=== PATIENT | female | born 1945 | race Caucasian/White ===

== ENCOUNTER 2017-08-24 11:42 | Inpatient (IN) | payer OTHER ==
[~2017-08-24] VITALS: Ht 162.6 cm; Wt 76.2 kg
--- NOTE | 2017-08-24 12:14 | CT SCAN REPORT ---
EXAMINATION: CT HEAD WITHOUT CONTRAST CLINICAL INFORMATION: Asymmetric pupils and severe headache. Recent fall. COMPARISON: None TECHNIQUE: Contiguous axial imaging was performed from the skull base to vertex without intravenous administration of contrast. DLP: 602 mGy-cm FINDINGS: There is no evidence of acute intracranial hemorrhage or territorial infarction. No abnormal mass effect or midline shift is seen. Ravi to white matter differentiation is well preserved. No extra-axial fluid collections are identified. The ventricles are normal in size. Mild chronic white matter microangiopathic changes are noted. The osseous structures and soft tissues are normal. The mastoid air cells and visualized portions of the paranasal sinuses are well aerated. IMPRESSION: No acute intracranial hemorrhage or territorial infarction. Mild chronic white matter microangiopathic changes. A focal acute ischemic process cannot be ruled out on the basis of this study. Findings discussed with Dr. Ace at 12:14 PM on 08/24/2017.
[2017-08-24 12:26] LABS: ABSOLUTE BASOPHIL COUNT 0 /CUMM (0.0-0.2); ABSOLUTE EOSINOPHIL COUNT 0 /CUMM (0.0-0.7); ABSOLUTE GRANULOCYTE CT 13.7 /CUMM (1.4-6.5); ABSOLUTE LYMPH COUNT 1.7 /CUMM (1.2-3.4); ABSOLUTE MONOCYTE COUNT 1.1 /CUMM (0.10-0.60); BASOPHIL % 0.1 % (0.0-2.0); EOSINOPHIL % 0 % (0-5); GRANULOCYTE % 83.1 % (42.2-75.2); HEMATOCRIT 34.7 % (37-47); MEAN CORPUSCULAR HGB 31.5 PG (27.0-31.0); MEAN CORPUSCULAR HGB CONC 34.1 G/DL (33.0-37.0); MEAN CORPUSCULAR VOLUME 92.4 FL (81.0-99.0); MEAN PLATELET VOLUME 9.7 FL (7.4-10.4); PLATELET COUNT 243 /CUMM (130-400); RED BLOOD CELL CT 3.76 /CUMM (4.20-5.40); WHITE BLOOD CELL COUNT 16.5 /CUMM (4.8-10.8)
[2017-08-24 13:10] LABS: PT 14.6 SEC (9.4-12.5)
--- NOTE | 2017-08-24 13:26 | RADIOLOGY REPORT ---
EXAMINATION: XR PORTABLE CHEST CLINICAL INFORMATION: Fever and cough. COMPARISON: Chest x-ray from 11/06/2012. TECHNIQUE: Portable frontal view of the chest was obtained. FINDINGS: There is questionable mild patchy density in the right lower lobe. The remainder of the lungs are clear. No pleural effusions are seen. The cardiomediastinal silhouette is normal. No acute osseous abnormality is seen. Anterior cervical fusion hardware partially visualized. IMPRESSION: Questionable mild patchy density in the right lower lobe which may be due to subsegmental atelectasis. An early developing pneumonic consolidation is difficult to exclude. Correlate with auscultation.
--- NOTE | 2017-08-24 13:35 | ED GENERAL ADULT ---
History of Present Illness General Chief Complaint: General Adult Stated Complaint: FEVER/MAY/+V Source: patient, family, old records Exam Limitations: no limitations Vital Signs & Intake/Output Vital Signs & Intake/Output Vital Signs Date Time Temp Pulse Resp B/P B/P Pulse O2 O2 Flow FiO2 Mean Ox Delivery Rate 08/24 1646 79 18 103/55 95 Nasal 2.0L Cannula 08/24 1532 90 18 101/56 Nasal 2.0L Cannula 08/24 1406 99.4 86 20 98 Nasal 2.0L Cannula 08/24 1327 100.9 94 20 113/54 96 Room Air 08/24 1253 102.9 08/24 1245 102.9 92 18 122/58 95 Room Air 08/24 1229 103.2 08/24 1218 103.2 96 20 137/63 99 Room Air 08/24 1217 103.5 97 18 137/63 96 Room Air Allergies Coded Allergies: Penicillins (RASH 08/24/17) naproxen (VOMITING 08/24/17) Reconcile Medications Esomeprazole Magnesium (Nexium) 20 MG CAPSULE.DR Baeza CAP PO PRN GI (Reported) Triage Note: 72F BY PRIVATE CAR FROM URGENT CARE DUE TO FEVERS AND VOMITING. IN TRIAGE, SLIGHT ASYMMETRY IN FACE OBSERVED AND LEFT PUPIL IS CONSTRICTED 1MM AND RIGHT PUPIL IS 3MM. REPORTS SPLITTING HEADACHE FOR DAYS, AND FALL X3 WITH HEADSTRIKE THIS WEEK. DENIES BLOOD THINNERS. TOOK ADVIL THIS AM FOR HEADACHE WITHOUT RELIEF. PT IS WEEK BUT DEMONSTRATES 4+ STRENGTH TO BILATERAL EXTREMITIES. SPEECH IS CLEAR. AIRWAY PATENT. TEMP 103.5. TAKEN IMMEDIATELY TO CT FOR HEAD WITHOUT CONTRAST. DR POON AND CHARGE NURSE NOTIFIED. TO GO TO ROOM 9 AFTER SCAN Triage Nurses Notes Reviewed? yes Onset: Last week Duration: day(s):, constant, continues in ED, getting worse Timing: recent history Injury Environment: home Severity: severe Modifying Factors: Improves With: rest. Worsens With: eating, movement. Associated Symptoms: cough LMP (ages 10-50): post menopausal : No Patient currently breastfeeds: No HPI: One week prior to admission patient complains of fever cough weakness nausea and retching headaches anorexia. She reports falling 3 times striking her head. There has been no abdominal pain diarrhea dysuria rash bleeding. Past History Travel History Traveled to [place] past 21 day No Medical History Any Pertinent Medical History? see below for history Neurological: NONE EENT: NONE Cardiovascular: NONE Respiratory: NONE Gastrointestinal: GERD Hepatic: NONE Renal: NONE Musculoskeletal: NONE Psychiatric: NONE Endocrine: NONE Blood Disorders: NONE Cancer(s): NONE History of MRSA: No History of VRE: No History of CDIFF: No Pneumonia Vaccine: 11/21/12 Surgical History Surgical History: non-contributory Psychosocial History Who do you live with Family Services at Home None What is your primary language Swedish Tobacco Use: Never used Family History Hx Contributory? No Review of Systems Review of Systems Constitutional: Reports: see HPI, chills, fever, weakness. EENTM: Reports: no symptoms. Respiratory: Reports: see HPI, cough, sputum production. Cardiovascular: Reports: no symptoms. GI: Reports: see HPI, nausea. Genitourinary: Reports: no symptoms. Musculoskeletal: Reports: no symptoms. Skin: Reports: no symptoms. Neurological/Psychological: Reports: see HPI, headache. Hematologic/Endocrine: Reports: no symptoms. Immunologic/Allergic: Reports: no symptoms. All Other Systems: Reviewed and Negative Physical Exam Physical Exam General Appearance: well developed/nourished, alert, awake, anxious, moderate distress, obese Head: normal appearance, tenderness Eyes: Bilateral: normal appearance, PERRL, EOMI. Ears, Nose, Throat: normal pharynx, normal ENT inspection, hearing grossly normal, dry mucous membranes Neck: normal inspection, supple, full range of motion, no midline tenderness Respiratory: normal breath sounds, chest non-tender, quiet respiration, decreased breath sounds Cardiovascular: regular rate/rhythm, normal peripheral pulses, tachycardia, norml femoral pulses equa Peripheral Pulses: 4+ carotid (R), 4+ carotid (L) Gastrointestinal: normal bowel sounds, soft, non-tender, no organomegaly Back: normal inspection, normal range of motion, no vertebral tenderness Extremities: normal inspection, normal capillary refill, normal range of motion, no edema Neurologic/Psych: no motor/sensory deficits, awake, alert, oriented x 3, normal mood/affect, manager lab II-XII nml as tested Reflexes: 2+: bicep (R), bicep (L). Skin: intact, normal color, warm/dry Lymphatic: no anterior cervical shaheen Core Measures ACS in differential dx? No CVA/TIA Diagnosis: No Sepsis Present: No Sepsis Focused Exam Completed? No Progress Differential Diagnoses I considered the following diagnoses in my evaluation of the patient: Pneumonia UTI sepsis bacteremia Plan of Care: Orders Procedure Date/time Status CBC WITHOUT DIFFERENTIAL 08/25 599 Active BASIC ELECTROLYTES PLUS BUN&CR 08/25 0600 Active Regular Diet 08/24 D Active LOWER RESPIRATORY CULTURE 08/24 1642 Active CULTURE,URINE 08/24 1432 Active Pathway - chart 08/24 1420 Active House Staff 08/24 1420 Active Patient Data 08/24 1420 Active Code Status 08/24 1420 Active Patient Data 08/24 1410 Active OXYGEN SETUP (GEN) 08/24 1349 Active Saline Lock 08/24 1349 Active Admit to inpatient 08/24 1349 Active Vital Signs 08/24 1349 Active Activity/Ambulation 08/24 1349 Active Code Status 08/24 1349 Complete URINALYSIS 08/24 1251 Complete BLOOD CULTURE 08/24 1233 Active Add-on Test (ER Only) 08/24 1218 Active LIPASE 08/24 1210 Complete TROPONIN LEVEL 08/24 1209 Complete PROTHROMBIN TIME 08/24 1209 Complete LACTIC ACID 08/24 1209 Complete COMPREHENSIVE METABOLIC PANEL 08/24 1209 Complete CBC WITHOUT DIFFERENTIAL 08/24 1209 Complete EKG 08/24 1207 Active Intake & Output 08/24 1157 Active TRC EVALUATION (GEN) 08/24 UNK Active VTE Mechanical Prophylaxis 08/24 UNK Active [place] Coma Scale 08/24 UNK Active Current Medications Sig/Tiffanie Start time Last Medication Dose Stop Time Status Admin Azithromycin 500 MG DAILY 08/25 899 UNVr (Zithromax) Sodium Chloride 250 ML (Normal Saline 0.9%) Ceftriaxone Sodium 1,000 MG DAILY 08/25 899 UNVr (Rocephin) Pantoprazole Sodium 40 MG DAILY 08/25 09 UNVr (Protonix) Ondansetron HCl 4 MG Q12P PRN 08/24 1715 UNVr (Zofran) Sodium Chloride 1,000 ML BOLUS ONE 08/24 1645 AC 08/24 (Normal Saline 0.9%) 08/24 1744 1646 Sodium Chloride 1,000 ML Q13H 08/24 1645 AC (Normal Saline 0.9%) Aspirin 81 MG DAILY 08/24 1641 AC (Aspirin) Laboratory Tests 08/24/17 1652: Urinalysis MOD H, Urine Color YEL, Urine Clarity CLDY H, Urine pH 6.0, Ur Specific [place] >= 1.030, Urine Protein 100 H, Urine Ketones 15 H, Urine Nitrite POS H, Urine Bilirubin NEG, Urine Urobilinogen 0.2, Ur Leukocyte Esterase NEG, Ur Microscopic SEDIMENT EXAMINED, Urine RBC 1-3, Urine WBC 5-10 H , Ur Epithelial Cells MOD H, Urine Bacteria MANY H, Hyaline Casts 1-3 H, Granular Casts 10-15 H, Urine Mucus FEW, Urine Hemoglobin MOD H, Urine Glucose NEG 08/24/17 1509: Lactic Acid Cancelled 08/24/17 1245: PT 14.6 H, INR 1.34 H 08/24/17 1210: Anion Gap 11, Estimated GFR 44 L, BUN/Creatinine Ratio 13.3, Glucose 123 H, Lactic Acid 1.7, Calcium 9.0, Total Bilirubin 0.6, AST 24, ALT 42, Alkaline Phosphatase 95, Troponin I 0.02, Total Protein 6.5, Albumin 3.4 L, Globulin 3.1 , Albumin/Globulin Ratio 1.1, Lipase 32, CBC w Diff MAN DIFF ORDERED, RBC 3.76 L, MCV 92.4, MCH 31.5 H, MCHC 34.1, RDW 13.0, MPV 9.7, Gran % 83.1 H, Lymphocytes % 10.3 L, Monocytes % 6.5, Eosinophils % 0, Basophils % 0.1, Absolute Granulocytes 13.7 H, Absolute Lymphocytes 1.7, Absolute Monocytes 1.1 H, Absolute Eosinophils 0, Absolute Basophils 0, Platelet Estimate VERIFIED BY SMEAR, Normocytic RBCs VERIFIED, Normochromic RBCs VERIFIED Microbiology 08/24 165 URINE ROUT: Urine Culture - RECD 08/24 1642 LOWER RESP: Respiratory Culture - ORD 08/24 1642 LOWER RESP: Gram Stain - ORD 08/24 1245 BLOOD: Blood Culture - RECD 08/24 1234 BLOOD: Blood Culture - RECD Diagnostic Imaging: Viewed by Me: Radiology Read, CT Scan. Discussed w/RAD: Radiology Read, CT Scan. Radiology Impression: No acute intracranial hemorrhage or territorial infarction. Mild chronic white matter microangiopathic changes. A focal acute ischemic process cannot be ruled out on the basis of this study. CXR Impression: Questionable mild patchy density in the right lower lobe which may be due to subsegmental atelectasis. An early developing pneumonic consolidation is difficult to exclude. Correlate with auscultation. Initial ED EKG: normal axis, normal intervals, normal p-waves, normal QRS complex, rhythm (sinus tachycardia), no ST T wave changes Prior EKG: unchanged Rhythm Strip: sinus tachycardia Departure Departure Disposition: STILL A PATIENT Condition: Fair Clinical Impression Primary Impression: Pneumonia Secondary Impressions: Dehydration, Fever, Leukocytosis Referrals: Giselle ANTOINE,Patricia Johnson (PCP/Family) Departure Forms: Customer Survey General Discharge Information Admission Note Spoke With: Leonor ANTOINE,Aneta Fung Documentation of Exam: Documentation of any treatments & extenuating circumstances including Concerns Regarding Discharge (functional status, medication knowledge or non-compliance, living conditions, etc.) that warrant an admission rather than observation: Supplemental oxygen IV antibiotics while cultures serial lab exam medication adjustment continuing care discharge planning. Critical Care Note Critical Care Note Critical Care Time: non-applicable (40)
--- NOTE | 2017-08-24 14:21 | History & Physical ---
Chiqui ANTOINE,[place] 08/24/17 1420: General Information and HPI MD Statement: I have seen and personally examined RUBEN ALMAGUER and documented this H&P. The patient is a 72 year old F who presented with a patient stated chief complaint of [pneumonia ]. Source of Information: patient, family, old records Exam Limitations: no limitations History of Present Illness: Patient is a 72-year-old female with past medical history of GERD,Mild nonerosive gastritis,Gastroesophageal reflux disease and paraesophageal hernia status post Dago's fundoplication (2010),Cervical disc herniations at C4-C5, C5-C6 and C6-C7 status Post cervical Arthodesis (2012), presented to the ED with chief complaints of fever and vomiting. She started having mild to moderate grade fever in the range of from 101 to 103, since redness day. She took Advil to treat her fever. Fever was associated with dry cough, headache and generalized weakness which leading to fall. She fall around 3 times over this period, but denies for any trauma. She denies for any blurry vision, weakness in any specific part of the body, seizures, incontinence of the urine and the stools, chest pain, palpitation, shortness of breath, abdominal pain, diarrhea, constipation. Her daughter insisted her to go to urgent care. in urgent care she was found to have a symmetric pupil and face with high-grade fever and range of 103. She was advised to come to the [facility] ED for further evaluation and management. She does not follow any PCP. She is not on any medication. Allergy history -penicillin causes rash, naproxen causes GI distress Surgical history - Gastroesophageal reflux disease and paraesophageal hernia status post Dago's fundoplication (2010) Cervical disc herniations at C4-C5, C5-C6 and C6-C7 status Post cervical Arthodesis (2013) Tubal ligation Appendicectomy Personal history -lives with the family, retired [employer] employee, she has 8 dogs, nobody is sick, denies smoking and alcohol. Family history - Father - diabetes, hypertension Mother -lung and kidney cancer Allergies/Medications Allergies: Coded Allergies: Penicillins (RASH 08/24/17) naproxen (VOMITING 08/24/17) Past History Travel History Traveled to [place] past 21 day No Medical History Neurological: NONE EENT: NONE Cardiovascular: NONE Respiratory: NONE Gastrointestinal: GERD Hepatic: NONE Renal: NONE Musculoskeletal: NONE Psychiatric: NONE Endocrine: NONE Blood Disorders: NONE Cancer(s): NONE History of MRSA: No History of VRE: No History of CDIFF: No Pneumonia Vaccine: 11/21/12 Surgical History Surgical History: non-contributory Past Family/Social History Psychosocial History Services at Home: None Exam & Diagnostic Data Last 24 Hrs of Vital Signs/I&O Vital Signs Date Time Temp Pulse Resp B/P B/P Pulse O2 O2 Flow FiO2 Mean Ox Delivery Rate 08/24 1406 99.4 86 20 98 Nasal 2.0L Cannula 08/24 1327 100.9 94 20 113/54 96 Room Air 08/24 1253 102.9 08/24 1245 102.9 92 18 122/58 95 Room Air 08/24 1229 103.2 08/24 1218 103.2 96 20 137/63 99 Room Air 08/24 1217 103.5 97 18 137/63 96 Room Air Intake & Output 08/24 1600 08/24 0800 08/24 0000 Intake Total 2100 Output Total Balance 2100 Intake, IV 2100 Patient 76.204 kg Weight Weight Estimated Measurement Method Physical Exam General Appearance Alert, Oriented X3, Cooperative, No Acute Distress Skin No Rashes, No Breakdown Skin Temp/Moisture Exam: Warm/Dry Sepsis Skin Exam (color): Normal for Ethnicity HEENT Atraumatic, PERRLA, EOMI Neck Supple, No JVD Cardiovascular Normal S1, Normal S2 Lungs Clear to Auscultation, Normal Air Movement Abdomen Soft, No Tenderness Neurological Normal Gait, Normal Speech, Strength at 5/5 X4 Ext, Normal Tone, Sensation Intact, Cranial Nerves 3-12 NL, Reflexes 2+ Extremities No Clubbing, No Cyanosis, No Edema Vascular Normal Pulses, Pulses Symmetrical Last 24 Hrs of Labs/Loy: Laboratory Tests 08/24/17 1245: PT 14.6 H, INR 1.34 H 08/24/17 1210: Anion Gap 11, Estimated GFR 44 L, BUN/Creatinine Ratio 13.3, Glucose 123 H, Lactic Acid 1.7, Calcium 9.0, Total Bilirubin 0.6, AST 24, ALT 42, Alkaline Phosphatase 95, Troponin I 0.02, Total Protein 6.5, Albumin 3.4 L, Globulin 3.1 , Albumin/Globulin Ratio 1.1, Lipase 32, CBC w Diff MAN DIFF ORDERED, RBC 3.76 L, MCV 92.4, MCH 31.5 H, MCHC 34.1, RDW 13.0, MPV 9.7, Gran % 83.1 H, Lymphocytes % 10.3 L, Monocytes % 6.5, Eosinophils % 0, Basophils % 0.1, Absolute Granulocytes 13.7 H, Absolute Lymphocytes 1.7, Absolute Monocytes 1.1 H, Absolute Eosinophils 0, Absolute Basophils 0, Platelet Estimate VERIFIED BY SMEAR, Normocytic RBCs VERIFIED, Normochromic RBCs VERIFIED Microbiology 08/24 1432 URINE ROUT: Urine Culture - ORD 08/24 1245 BLOOD: Blood Culture - RECD 08/24 1234 BLOOD: Blood Culture - RECD Diagnostic Data EKG Results Heart rate - 98 normal sinus rhythm CXR Results Questionable mild patchy density in the right lower lobe which may be due to subsegmental atelectasis. An early developing pneumonic consolidation is difficult to exclude. Correlate with auscultation. Assessment/Plan Assessment: Patient is a 72-year-old female with past medical history of GERD,Mild nonerosive gastritis,Gastroesophageal reflux disease and paraesophageal hernia status post Dago's fundoplication (2010),Cervical disc herniations at C4-C5, C5-C6 and C6-C7 status Post cervical Arthodesis (2012), presented to the ED with chief complaints of fever and vomiting. ED course - Vital signs at the time of admission-temperature 103.5, pulse 97, respiratory rate 18, blood pressure 137/63, SPO2 96% on room air Blood workup showed -WBC 16.5, hemoglobin 11.8, hematocrit 34.7, platelet count 243, granulocyte 83.1, serum sodium 139, potassium 4.1, chloride 102, carbon DEXA 26, anion gap 11, BUN 16, creatinine 1.2, GFR 44, glucose 123, lactic acid 1.7, calcium 9, total bilirubin 0.6, AST 24, ALT 42, alkaline phosphatase 95, total protein 6.5, albumin 3.4, globulin 3.1, lipase 32, troponin I 0.02, PT/INR -14.6/1.34, CT scan of the head -no acute intracranial hemorrhage or infarction Chest x-ray -mild patchy density in the right lower lobe? Subsegmental atelectasis or early developing pneumonia. Patient was given ceftriaxone and azithromycin and IV fluid in the ED. Blood cultures were and urine culture was sent. Assessment and plan - Right lower lobe pneumonia/atelectasis - Patient was having a high-grade fever, leading to multiple falls and generalized weakness, differential can be viral leading to secondary bacterial pneumonia, high-grade fever leading to dehydration and weakness. * We will start the patient on IV fluids normal saline 75 cc/h * We will start patient on injection ceftriaxone and azithromycin * We will give Tylenol for fever as needed * Inj Zofran as needed for nausea * We will follow blood culture, urine culture, lower respiratory tract culture. Episode of left sided facial droop and asymmetric pupil possibly TIA - * CT scan did not show any evidence of stroke. * Neuro check every 4 hourly * We will start patient on tablet aspirin 81 mg daily Diet -1 Regular diet DVT prophylaxis - JOSE J/heparin CODE STATUS - full code As Ranked By This Provider Problem List: 1. Pneumonia Core Measures/Misc (12/08) Acute Coronary Syndrome ACS Diagnosis: No Congestive Heart Failure Congestive Heart Failure Diagnosis No Cerebrovascular Accident CVA/TIA Diagnosis: No VTE (View Protocol) VTE Risk Factors Age>40 No Mechanical VTE Prophylaxis d/t N/A MechProphylax Ordered No VTE Pharm Prophylaxis d/t Other Sepsis (View protocol) Sepsis Present: Yes If YES complete Sepsis Event Note If YES complete Sepsis Event Note Leonor ANTOINE,[facility] [place]24/17 3680: General Information and HPI Allergies/Medications Home Med list Esomeprazole Magnesium (Nexium) 20 MG CAPSULE.DR Baeza CAP PO PRN GI (Reported) Review of Systems Review of Systems Constitutional: Reports: no symptoms, malaise, weakness. Core Measures/Misc (12/08) Sepsis (View protocol) If YES complete Sepsis Event Note If YES complete Sepsis Event Note Attending MD Review Statement Attending Statement Attending MD Statement: examined this patient, discuss w/resident/PA/STEWARD DISHWASHER, agreed w/resident/PA/STEWARD DISHWASHER, reviewed EMR data (avail), discussed with nursing, reviewed images Attending Assessment/Plan: 72 year old female with PMH GERD S/P Dago fundoplication, previous h/o spinal surgery here with CAP - fevers, fatigue, cough and weakness with falls. No history suggsetive of cardiogenic cause of falls. Positive leukocytosis and right basilar opacity. Will admit to Gen Med, treat with IV abx, gentle hydration. Continue PPI, DVT prophylaxis and PT eval. Pt has h/o diastolic dysfunction so will be careful with fluids. Consider repeat Chest xary to better define opacity.
[2017-08-24] MEDS ORDERED: NEXIUM20 M1 PO (14:43)
--- NOTE | 2017-08-24 15:07 | Admission Certification ---
Admission Certification Certification Statement - As attending physician, I certify that at the time of - admission, based on clinical presentation, severity of - symptoms, need for further diagnostic testing and - therapeutic interventions, and risk of adverse outcomes - without in-hospital treatment, in my clinical assessment, - this patient requires an acute hospital stay for a minimum - of two nights or longer. I have also considered psychsocial - factors such as support system, advanced age, financial - issues, cognitive issues, and failed out-patient treatments, - past re-admission history, safety of patient, and lack of - compliance as applicable. Specific rationale supporting this admission is: Comm acquired pneumonia with weakness and NITHYA.
[2017-08-25 05:15] VITALS: BP 136/61
[2017-08-25 06:26] LABS: ABSOLUTE BASOPHIL COUNT 0 /CUMM (0.0-0.2); ABSOLUTE EOSINOPHIL COUNT 0 /CUMM (0.0-0.7); ABSOLUTE GRANULOCYTE CT 10.4 /CUMM (1.4-6.5); ABSOLUTE LYMPH COUNT 1.2 /CUMM (1.2-3.4); ABSOLUTE MONOCYTE COUNT 0.7 /CUMM (0.10-0.60); BASOPHIL % 0 % (0.0-2.0); EOSINOPHIL % 0 % (0-5); HEMATOCRIT 31.1 % (37-47); MEAN CORPUSCULAR HGB 31.5 PG (27.0-31.0); MEAN CORPUSCULAR VOLUME 92.6 FL (81.0-99.0); MEAN PLATELET VOLUME 9.5 FL (7.4-10.4); PLATELET COUNT 194 /CUMM (130-400); RBC DISTRIBUTION WIDTH 13.4 % (11.5-14.5); RED BLOOD CELL CT 3.36 /CUMM (4.20-5.40); WHITE BLOOD CELL COUNT 12.3 /CUMM (4.8-10.8)
--- NOTE | 2017-08-25 07:11 | PN- Housestaff ---
Subjective Follow-up For: CAP Hx of dysphagia Subjective: Patient reports rib pain with deep breathing and cough without sputum production. Denies fever, chills, blurry vision, lightheadedness, slurred speech , nausea, vomiting urinary or bowel symptoms Review of Systems Constitutional: Reports: see HPI. Objective Last 24 Hrs of Vital Signs/I&O Vital Signs Date Time Temp Pulse Resp B/P B/P Pulse O2 O2 Flow FiO2 Mean Ox Delivery Rate 08/25 1207 98.4 73 18 114/55 94 Room Air 08/25 1100 99.8 08/25 0515 99.4 85 22 136/61 95 Room Air 08/24 2016 97.7 70 18 107/57 99 Room Air 08/24 1820 98.0 78 18 105/53 98 Nasal 2.0L Cannula 08/24 1646 79 18 103/55 95 Nasal 2.0L Cannula Intake & Output 08/25 1600 08/25 0800 08/25 0000 Intake Total 1080 660 Output Total Balance 1080 660 Intake, IV 600 600 Intake, Oral 480 60 Physical Exam General Appearance: Alert, Oriented X3, Cooperative, No Acute Distress HEENT: Atraumatic, PERRLA, EOMI, Mucous Membr. moist/pink Cardiovascular: Regular Rate, Normal S1, Normal S2 Lungs: Clear to Auscultation, Normal Air Movement Abdomen: Normal Bowel Sounds, Soft, No Tenderness Current Medications: Current Medications Sig/Tiffanie Start time Last Medication Dose Route Stop Time Status Admin Acetaminophen 0 .STK-MED ONE 08/25 1022 DC PO Acetaminophen 650 MG Q6P PRN 08/25 1000 AC PO Albuterol Sulfate 3 ML Q6P PRN 08/25 1200 AC INH Aspirin 0 .STK-MED ONE 08/24 1810 DC PO Aspirin 81 MG DAILY 08/24 1641 AC 08/25 PO 0926 Azithromycin 500 MG DAILY@1400 08/25 1400 AC 08/25 Sodium Chloride 250 ML IV 1353 Benzonatate 100 MG TID 08/25 1400 AC 08/25 PO 1353 Ceftriaxone Sodium 1,000 MG DAILY@08/25 1400 AC 08/25 IV 1353 Guaifenesin 0 .STK-MED ONE 08/25 0537 DC PO Guaifenesin 10 ML Q6P PRN 08/25 0530 AC 08/25 PO 0530 Heparin Sodium 5,000 UNIT Q8 08/24 2200 AC (Porcine) SC Ondansetron HCl 4 MG Q12P PRN 08/24 1715 AC IV Pantoprazole Sodium 40 MG DAILY 08/25 0900 AC 08/25 IV 0926 Sodium Chloride 1,000 ML BOLUS ONE 08/24 1645 DC 08/24 IV 08/24 1744 1646 Sodium Chloride 1,000 ML Q13H 08/24 1645 AC 08/25 IV 0530 Last 24 Hrs of Lab/Loy Results Last 24 Hrs of Labs/Mics: Laboratory Tests 08/25/17 0620: Anion Gap 10, Estimated GFR > 60, BUN/Creatinine Ratio 15.6, CBC w Diff MAN DIFF ORDERED, RBC 3.36 L, MCV 92.6, MCH 31.5 H, MCHC 34.0, RDW 13.4, MPV 9.5, Gran % 84.0 H, Lymphocytes % 10.1 L, Monocytes % 5.9, Eosinophils % 0, Basophils % 0, Absolute Granulocytes 10.4 H, Absolute Lymphocytes 1.2, Absolute Monocytes 0.7 H, Absolute Eosinophils 0, Absolute Basophils 0, Platelet Estimate ADEQUATE , Normocytic RBCs VERIFIED, Normochromic RBCs VERIFIED 08/25/17 0514: Anion Gap 11, Estimated GFR > 60, BUN/Creatinine Ratio 14.4, CBC w Diff Cancelled, WBC Cancelled, RBC Cancelled, Hgb Cancelled, Hct Cancelled, MCV Cancelled, MCH Cancelled, MCHC Cancelled, RDW Cancelled, Plt Count Cancelled, MPV Cancelled 08/24/17 165: Urinalysis MOD H, Urine Color YEL, Urine Clarity CLDY H, Urine pH 6.0, Ur Specific [place] >= 1.030, Urine Protein 100 H, Urine Ketones 15 H, Urine Nitrite POS H, Urine Bilirubin NEG, Urine Urobilinogen 0.2, Ur Leukocyte Esterase NEG, Ur Microscopic SEDIMENT EXAMINED, Urine RBC 1-3, Urine WBC 5-10 H , Ur Epithelial Cells MOD H, Urine Bacteria MANY H, Hyaline Casts 1-3 H, Granular Casts 10-15 H, Urine Mucus FEW, Urine Hemoglobin MOD H, Urine Glucose NEG Microbiology 08/25 1651 URINE ROUT: Urine Culture - RES Assessment/Plan Assessment: Ms. Farooq is a 72-year-old female with past medical history of GERD,Mild nonerosive gastritis,Gastroesophageal reflux disease and paraesophageal hernia status post Dago's fundoplication (2010),Cervical disc herniations at C4-C5, C5-C6 and C6-C7 status Post cervical Arthodesis (2013), presented to the ED with chief complaints of fever #CAP #Hx of dysphagia Plan: Await LRC CXR consistent with RL PNA GI consult for dysphagia Continue Protonix for acid reflux Continue IV ceftriaxone and azithromycin Diet -Regular DVT prophylaxis - ALPS/heparin CODE STATUS - full code Problem List: 1. Pneumonia Pain Ratin Pain Location: NA Pain Goal: Remain pain free Pain Plan: NA Tomorrow's Labs & Rationales: CBC, BEP
[2017-08-25 12:07] VITALS: BP 114/55
--- NOTE | 2017-08-25 13:01 | PN- Att Addend ---
Attending Addendum Attending Brief Note Patient seen and examined, still feels tired. Denies any shortness of breath at rest but does have dyspnea on exertion. Patient now is afebrile. Vital Signs Date Time Temp Pulse Resp B/P B/P Pulse O2 O2 Flow FiO2 Mean Ox Delivery Rate 08/25 1207 98.4 73 18 114/55 94 Room Air 08/25 1100 99.8 08/25 0515 99.4 85 22 136/61 95 Room Air 08/24 2016 97.7 70 18 107/57 99 Room Air 08/24 1820 98.0 78 18 105/53 98 Nasal 2.0L Cannula 08/24 1646 79 18 103/55 95 Nasal 2.0L Cannula 08/24 1532 90 18 101/56 Nasal 2.0L Cannula 08/24 1406 99.4 86 20 98 Nasal 2.0L Cannula 08/24 1327 100.9 94 20 113/54 96 Room Air on exam ; aox3, nad. cv; s1,s2, rrr resp: mild carckles at right base. abd; soft, nt, bs+ ext; no edema Laboratory Tests 08/25 08/25 0620 0514 Chemistry Sodium (137 - 145 mmol/L) 143 143 Potassium (3.5 - 5.1 mmol/L) 3.9 3.6 Chloride (98 - 107 mmol/L) 114 H 114 H Carbon Dioxide (22 - 30 mmol/L) 19 L 18 L Anion Gap (5 - 16) 10 11 BUN (7 - 17 mg/dL) 14 13 Creatinine (0.5 - 1.0 mg/dL) 0.9 0.9 Estimated GFR (>60 ml/min) > 60 > 60 BUN/Creatinine Ratio (7 - 25 %) 15.6 14.4 Hematology CBC w Diff MAN DIFF ORDERED Cancelled WBC (4.8 - 10.8 /CUMM) 12.3 H Cancelled RBC (4.20 - 5.40 /CUMM) 3.36 L Cancelled Hgb (12.0 - 16.0 G/DL) 10.6 L Cancelled Hct (37 - 47 %) 31.1 L Cancelled MCV (81.0 - 99.0 FL) 92.6 Cancelled MCH (27.0 - 31.0 PG) 31.5 H Cancelled MCHC (33.0 - 37.0 G/DL) 34.0 Cancelled RDW (11.5 - 14.5 %) 13.4 Cancelled Plt Count (130 - 400 /CUMM) 194 Cancelled MPV (7.4 - 10.4 FL) 9.5 Cancelled Gran % (42.2 - 75.2 %) 84.0 H Lymphocytes % (20.5 - 51.1 %) 10.1 L Monocytes % (1.7 - 9.3 %) 5.9 Eosinophils % (0 - 5 %) 0 Basophils % (0.0 - 2.0 %) 0 Absolute Granulocytes (1.4 - 6.5 /CUMM) 10.4 H Absolute Lymphocytes (1.2 - 3.4 /CUMM) 1.2 Absolute Monocytes (0.10 - 0.60 /CUMM) 0.7 H Absolute Eosinophils (0.0 - 0.7 /CUMM) 0 Absolute Basophils (0.0 - 0.2 /CUMM) 0 Platelet Estimate (ADEQUATE) ADEQUATE Normocytic RBCs VERIFIED Normochromic RBCs VERIFIED 08/24 08/24 1652 1509 Chemistry Lactic Acid Cancelled Urines Urinalysis MOD H Urine Color (YEL,AMB,STR) YEL Urine Clarity (CLEAR) CLDY H Urine pH (5.0 - 8.0) 6.0 Ur Specific [place] (1.001 - 1.035) >= 1.030 Urine Protein (NEG,<30 MG/DL) 100 H Urine Ketones (NEG) 15 H Urine Nitrite (NEG) POS H Urine Bilirubin (NEG) NEG Urine Urobilinogen (0.1 - 1.0 EU/dl) 0.2 Ur Leukocyte Esterase (NEG) NEG Ur Microscopic SEDIMENT EXAMINED Urine RBC (0 - 5 /HPF) 1-3 Urine WBC (0 - 2 /HPF) 5-10 H Ur Epithelial Cells (NONE,FEW) MOD H Urine Bacteria (NEG/NONE) MANY H Hyaline Casts (0/LPF) 1-3 H Granular Casts (NONE /LPF) 10-15 H Urine Mucus (FEW,NONE) FEW Urine Hemoglobin (NEG) MOD H Urine Glucose (N MG/DL) NEG A/P: 72 y/o F with pmh sig for GERD,Mild nonerosive gastritis,Gastroesophageal reflux disease and paraesophageal hernia status post Dago's fundoplication ( 2010),Cervical disc herniations at C4-C5, C5-C6 and C6-C7 status Post cervical Arthodesis (2013) admitted with generalized weakness, fever and vomiting and found to have community-acquired pneumonia. There is also question of aspiration pneumonia with patient's history of dysphagia. Patient currently getting treated with IV antibiotics. Please obtain sputum culture. Please check a PA lateral chest x-ray. GI consult should be obtained for this history of dysphagia. Continue TRC nebs in the rest of the medications. Patient on heparin subcutaneous for DVT prophylaxis. Please obtain PT evaluation. D/W at bedside.
--- NOTE | 2017-08-25 14:26 | RADIOLOGY REPORT ---
EXAMINATION: XR CHEST CLINICAL INFORMATION: Shortness of breath. Presumptive diagnosis of pneumonia. COMPARISON: Chest x-ray dated 08/24/2017 and 11/06/2012. TECHNIQUE: 2 views of the chest were obtained. FINDINGS: The cardiomediastinal silhouette is within normal limits in size. There is increasing opacity now seen in the right lower lobe, suspicious for a pneumonia. Internal air bronchograms are seen, and there is volume loss with elevation of the right hemidiaphragm. There may be an associated trace pleural effusion. There is mild linear atelectatic change in the left lung base. The remainder of the lungs is clear. No pneumothorax is seen. Lower cervical spine anterior cervical fusion hardware is seen. Mild S-shaped thoracic scoliosis is noted. IMPRESSION: Progressive opacity in the right lung base with air bronchograms, volume loss and elevation of right hemidiaphragm, consistent with pneumonia. Trace associated pleural fluid may be present as well.
[2017-08-25 16:31] VITALS: BP 141/69
[2017-08-25 16:57] VITALS: BP 121/53
[2017-08-25 23:10] VITALS: BP 115/55
[2017-08-26 07:12] VITALS: BP 116/62
[2017-08-26 08:00] LABS: ABSOLUTE BASOPHIL COUNT 0 /CUMM (0.0-0.2); ABSOLUTE EOSINOPHIL COUNT 0 /CUMM (0.0-0.7); ABSOLUTE GRANULOCYTE CT 10.7 /CUMM (1.4-6.5); ABSOLUTE LYMPH COUNT 1.5 /CUMM (1.2-3.4); ABSOLUTE MONOCYTE COUNT 0.9 /CUMM (0.10-0.60); BASOPHIL % 0.3 % (0.0-2.0); EOSINOPHIL % 0.1 % (0-5); GRANULOCYTE % 81.2 % (42.2-75.2); HEMATOCRIT 29.5 % (37-47); MEAN CORPUSCULAR HGB 31.8 PG (27.0-31.0); MEAN CORPUSCULAR VOLUME 93.3 FL (81.0-99.0); PLATELET COUNT 207 /CUMM (130-400); RBC DISTRIBUTION WIDTH 13.4 % (11.5-14.5); RED BLOOD CELL CT 3.16 /CUMM (4.20-5.40); WHITE BLOOD CELL COUNT 13.1 /CUMM (4.8-10.8)
--- NOTE | 2017-08-26 08:38 | PN- Housestaff ---
Per Guerrero 08/26/17 0838: Subjective Follow-up For: CAP Hx of dysphagia Subjective: Patient reports cough without sputum production. Denies fever, chills, nausea, vomiting, urinary or bowel symptoms Review of Systems Constitutional: Reports: see HPI. Objective Last 24 Hrs of Vital Signs/I&O Vital Signs Date Time Temp Pulse Resp B/P B/P Pulse O2 O2 Flow FiO2 Mean Ox Delivery Rate 08/26 0800 Room Air / 0712 98.7 85 18 116/62 94 /05 0000 Room Air 06/ 2310 98.2 74 20 115/55 96 Room Air 06/ 1823 Room Air 06/ 1657 99.2 88 22 121/53 96 Room Air / 1646 96 Room Air / 1631 100.6 92 20 141/69 98 Room Air Room Air /04 1628 100.6 06/ 1617 100.6 90 20 141/69 98 Room Air Room Air /04 1207 98.4 73 18 114/55 94 Room Air /04 1100 99.8 Intake & Output 08/26 1600 / 0800 06/05 0000 Intake Total 930 685 Output Total 300 0 Balance 630 685 Intake, IV 450 385 Intake, Oral 480 300 Number 0 0 Bowel Movements Output, Urine 300 0 Physical Exam General Appearance: Alert, Oriented X3, Cooperative, No Acute Distress Cardiovascular: Regular Rate, Normal S1, Normal S2 Lungs: BL lower lobe wheezing Abdomen: Normal Bowel Sounds, Soft, No Tenderness Current Medications: Current Medications Sig/Tiffanie Start time Last Medication Dose Route Stop Time Status Admin Acetaminophen 650 MG .STK-MED ONE 08/26 0011 DC PO 08/26 0012 Acetaminophen 0 .STK-MED ONE 08/25 1631 DC PO Acetaminophen 650 MG Q6P PRN / 1000 AC 08/26 PO 0013 Albuterol Sulfate 3 ML BID 08/25 2100 AC 08/26 INH 0842 Albuterol Sulfate 3 ML Q6P PRN / 1200 AC INH Aspirin 81 MG DAILY 08/24 1641 AC 08/26 PO 0901 Azithromycin 500 MG DAILY@1400 / 1400 AC 08/25 Sodium Chloride 250 ML IV 1353 Benzocaine 1 NATE Q8 08/26 1400 AC TOP Benzonatate 100 MG TID 08/25 1400 AC 08/26 PO 0901 Ceftriaxone Sodium 1,000 MG DAILY@1400 08/25 1400 AC 08/25 IV 1353 Guaifenesin 10 ML Q6P PRN 08/25 0530 AC 08/25 PO 0530 Heparin Sodium 5,000 UNIT Q8 08/24 2200 AC (Porcine) SC Ondansetron HCl 4 MG Q12P PRN 08/24 1715 AC IV Pantoprazole Sodium 40 MG BID 08/26 2100 AC IV Pantoprazole Sodium 40 MG DAILY 08/25 0900 DC 08/26 IV 0901 Sodium Chloride 1,000 ML Q13H 08/24 1645 DC 08/26 IV 0624 Last 24 Hrs of Lab/Loy Results Last 24 Hrs of Labs/Mics: Laboratory Tests 08/26/17 0710: Anion Gap 11, Estimated GFR > 60, BUN/Creatinine Ratio 13.8, CBC w Diff NO MAN DIFF REQ, RBC 3.16 L, MCV 93.3, MCH 31.8 H, MCHC 34.0, RDW 13.4, MPV 10.0, Gran % 81.2 H, Lymphocytes % 11.4 L, Monocytes % 7.0, Eosinophils % 0.1, Basophils % 0.3, Absolute Granulocytes 10.7 H, Absolute Lymphocytes 1.5, Absolute Monocytes 0.9 H, Absolute Eosinophils 0, Absolute Basophils 0 Assessment/Plan Assessment: Ms. Farooq is a 72-year-old female with past medical history of GERD,Mild nonerosive gastritis,Gastroesophageal reflux disease and paraesophageal hernia status post Dago's fundoplication (2010),Cervical disc herniations at C4-C5, C5-C6 and C6-C7 status Post cervical Arthodesis (2012), presented to the ED with chief complaints of fever #CAP #Hx of dysphagia Plan: Await LRC CXR consistent with RL PNA Await GI consult for dysphagia Continue Protonix for acid reflux Continue IV ceftriaxone and azithromycin Diet -Regular DVT prophylaxis - ALPS/heparin CODE STATUS - full code Problem List: 1. Pneumonia Pain Ratin Pain Location: NA Pain Goal: Remain pain free Pain Plan: NA Tomorrow's Labs & Rationales: CBC, BEP Joe ANTOINE,Zena 08/26/17 1315: Attending MD Review Statement Attending Statement Attending MD Statement: examined this patient, discuss w/resident/PA/ANIMATION CAMERA OPERATOR, agreed w/resident/PA/ANIMATION CAMERA OPERATOR, reviewed EMR data (avail), discussed with nursing, discussed with case mgmt, reviewed images, amended to note Attending Assessment/Plan: Patient seen and examined, not feeling much better. Still having cough. Not able to produce much sputum. Repeat chest x-ray which was be lateral continues to show right-sided opacity consistent with pneumonia. Patient is not spiking fevers. Vital Signs Date Time Temp Pulse Resp B/P B/P Pulse O2 O2 Flow FiO2 Mean Ox Delivery Rate 08/26 1313 101.1 / 1241 101.5 / 1241 101.5 82 20 96 Room Air /05 1101 94 Room Air /05 0800 Room Air /05 0712 98.7 85 18 116/62 94 /05 0000 Room Air /04 2310 98.2 74 20 115/55 96 Room Air /04 1823 Room Air 06/04 1657 99.2 88 22 121/53 96 Room Air /04 1646 96 Room Air 06/04 1631 100.6 92 20 141/69 98 Room Air Room Air 06/04 1628 100.6 06/04 1617 100.6 90 20 141/69 98 Room Air Room Air on exam; aox3, nad. cv; s1,s2 rrr resp; crakles at right base. abd; soft, nt, bs+ ext; no edema Laboratory Tests 08/26 0710 Chemistry Sodium (137 - 145 mmol/L) 144 Potassium (3.5 - 5.1 mmol/L) 3.9 Chloride (98 - 107 mmol/L) 112 H Carbon Dioxide (22 - 30 mmol/L) 20 L Anion Gap (5 - 16) 11 BUN (7 - 17 mg/dL) 11 Creatinine (0.5 - 1.0 mg/dL) 0.8 Estimated GFR (>60 ml/min) > 60 BUN/Creatinine Ratio (7 - 25 %) 13.8 Hematology CBC w Diff NO MAN DIFF REQ WBC (4.8 - 10.8 /CUMM) 13.1 H RBC (4.20 - 5.40 /CUMM) 3.16 L Hgb (12.0 - 16.0 G/DL) 10.0 L Hct (37 - 47 %) 29.5 L MCV (81.0 - 99.0 FL) 93.3 MCH (27.0 - 31.0 PG) 31.8 H MCHC (33.0 - 37.0 G/DL) 34.0 RDW (11.5 - 14.5 %) 13.4 Plt Count (130 - 400 /CUMM) 207 MPV (7.4 - 10.4 FL) 10.0 Gran % (42.2 - 75.2 %) 81.2 H Lymphocytes % (20.5 - 51.1 %) 11.4 L Monocytes % (1.7 - 9.3 %) 7.0 Eosinophils % (0 - 5 %) 0.1 Basophils % (0.0 - 2.0 %) 0.3 Absolute Granulocytes (1.4 - 6.5 /CUMM) 10.7 H Absolute Lymphocytes (1.2 - 3.4 /CUMM) 1.5 Absolute Monocytes (0.10 - 0.60 /CUMM) 0.9 H Absolute Eosinophils (0.0 - 0.7 /CUMM) 0 Absolute Basophils (0.0 - 0.2 /CUMM) 0 A/P; 72 y/o F with pmh sig for GERD,Mild nonerosive gastritis,Gastroesophageal reflux disease and paraesophageal hernia status post Dago's fundoplication ( 2010),Cervical disc herniations at C4-C5, C5-C6 and C6-C7 status Post cervical Arthodesis (2013) admitted with generalized weakness, fever and vomiting and found to have pneumonia which is likely an aspiration pneumonia. Patient is spiking fevers. She has been kept on ceftriaxone and azithromycin. We will add Flagyl to cover for aspiration pneumonia. Patient allergic to penicillins. So far blood cultures remain negative. Patient not able to produce a good sputum sample. She also needs a GI evaluation for the dysphagia. Currently she is on a PPI. Continue TRC nebs. She is on heparin subcutaneous for DVT prophylaxis.
[2017-08-26 15:02] VITALS: BP 120/66
--- NOTE | 2017-08-26 15:59 | Cons- Gastroenterology ---
General Information and HPI Consulting Request Date of Consult: 08/26/17 Requested By: Zena Diaz MD Reason for Consult: Dysphagia GERD Source of Information: patient Allergies/Medications Allergies: Coded Allergies: Penicillins (RASH 08/24/17) naproxen (VOMITING 08/24/17) Home Med List: Esomeprazole Magnesium (Nexium) 20 MG CAPSULE.DR Baeza CAP PO PRN GI (Reported) Current Medications: Current Medications Sig/Tiffanie Start time Last Medication Dose Route Stop Time Status Admin Acetaminophen 650 MG .STK-MED ONE 08/26 0011 DC PO 08/26 0012 Acetaminophen 0 .STK-MED ONE 08/25 1631 DC PO Acetaminophen 650 MG Q6P PRN 08/25 1000 AC 08/26 PO 1241 Albuterol Sulfate 3 ML BID 08/25 2100 AC 08/26 INH 0842 Albuterol Sulfate 3 ML Q6P PRN 08/25 1200 AC INH Aspirin 81 MG DAILY 08/24 1641 AC 08/26 PO 0901 Azithromycin 500 MG DAILY@1400 08/25 1400 AC 08/26 Sodium Chloride 250 ML IV 1400 Benzocaine 1 NATE Q8 08/26 1400 AC 08/26 TOP 1400 Benzonatate 100 MG TID / 1400 AC 06 PO 1359 Ceftriaxone Sodium 1,000 MG DAILY@1400 /04 1400 AC 08/26 IV 1400 Guaifenesin 10 ML Q6P PRN 08/25 0530 AC 06/04 PO 0530 Heparin Sodium 5,000 UNIT Q8 08/24 2200 AC (Porcine) SC Metronidazole 500 MG IQ8 / 1600 AC N/A 1 UNIT IV Ondansetron HCl 4 MG Q12P PRN 08/24 1715 AC IV Pantoprazole Sodium 40 MG BID 08/26 2100 AC IV Pantoprazole Sodium 40 MG DAILY 08/25 0900 DC 08/26 IV 0901 Sodium Chloride 1,000 ML Q13H 08/24 1645 DC 08/26 IV 0624 Past History Travel History Traveled to [place] past 21 day No Medical History Neurological: NONE EENT: NONE Cardiovascular: NONE Respiratory: NONE Gastrointestinal: GERD Hepatic: NONE Renal: NONE Musculoskeletal: NONE Psychiatric: NONE Endocrine: NONE Blood Disorders: NONE Cancer(s): NONE Surgical History Surgical History: non-contributory Psychosocial History Where Do You Live? Home Services at Home: None Smoking Status: Never Smoked Exam & Diagnostic Data Vital Signs and I&O Vital Signs Date Time Temp Pulse Resp B/P B/P Pulse O2 O2 Flow FiO2 Mean Ox Delivery Rate 08/26 1502 98.4 82 20 120/66 96 Room Air 08/26 1432 98.3 08/26 1313 101.1 06 1241 101.5 06 1241 101.5 82 20 96 Room Air 08/26 1101 94 Room Air 08/26 0800 Room Air 08/26 0712 98.7 85 18 116/62 94 06/05 0000 Room Air 06 2310 98.2 74 20 115/55 96 Room Air / 1823 Room Air 08/25 1657 99.2 88 22 121/53 96 Room Air 08/25 1646 96 Room Air 08/25 1631 100.6 92 20 141/69 98 Room Air Room Air 08/25 1628 100.6 06/04 1617 100.6 90 20 141/69 98 Room Air Room Air Intake & Output 08/26 1600 08/26 0400 08/25 1600 08/25 0400 03 1600 03 0400 Intake Total 7972 945 7158 2100 Output Total 300 0 Balance 6695 980 5735 2100 Intake, IV 234 467 0084 2100 Intake, Oral 930 300 540 Number 0 0 Bowel Movements Output, Urine 300 0 Patient 168 lb Weight Weight Estimated Measurement Method Results Pertinent Lab Results: Laboratory Tests 08/26 08/25 0710 0620 Chemistry Sodium (137 - 145 mmol/L) 144 143 Potassium (3.5 - 5.1 mmol/L) 3.9 3.9 Chloride (98 - 107 mmol/L) 112 H 114 H Carbon Dioxide (22 - 30 mmol/L) 20 L 19 L Anion Gap (5 - 16) 11 10 BUN (7 - 17 mg/dL) 11 14 Creatinine (0.5 - 1.0 mg/dL) 0.8 0.9 Estimated GFR (>60 ml/min) > 60 > 60 BUN/Creatinine Ratio (7 - 25 %) 13.8 15.6 Hematology CBC w Diff NO MAN DIFF REQ MAN DIFF ORDERED WBC (4.8 - 10.8 /CUMM) 13.1 H 12.3 H RBC (4.20 - 5.40 /CUMM) 3.16 L 3.36 L Hgb (12.0 - 16.0 G/DL) 10.0 L 10.6 L Hct (37 - 47 %) 29.5 L 31.1 L MCV (81.0 - 99.0 FL) 93.3 92.6 MCH (27.0 - 31.0 PG) 31.8 H 31.5 H MCHC (33.0 - 37.0 G/DL) 34.0 34.0 RDW (11.5 - 14.5 %) 13.4 13.4 Plt Count (130 - 400 /CUMM) 207 194 MPV (7.4 - 10.4 FL) 10.0 9.5 Gran % (42.2 - 75.2 %) 81.2 H 84.0 H Lymphocytes % (20.5 - 51.1 %) 11.4 L 10.1 L Monocytes % (1.7 - 9.3 %) 7.0 5.9 Eosinophils % (0 - 5 %) 0.1 0 Basophils % (0.0 - 2.0 %) 0.3 0 Absolute Granulocytes (1.4 - 6.5 /CUMM) 10.7 H 10.4 H Absolute Lymphocytes (1.2 - 3.4 /CUMM) 1.5 1.2 Absolute Monocytes (0.10 - 0.60 /CUMM) 0.9 H 0.7 H Absolute Eosinophils (0.0 - 0.7 /CUMM) 0 0 Absolute Basophils (0.0 - 0.2 /CUMM) 0 0 Platelet Estimate (ADEQUATE) ADEQUATE Normocytic RBCs VERIFIED Normochromic RBCs VERIFIED 08/25 06/ 0514 1652 Chemistry Sodium (137 - 145 mmol/L) 143 Potassium (3.5 - 5.1 mmol/L) 3.6 Chloride (98 - 107 mmol/L) 114 H Carbon Dioxide (22 - 30 mmol/L) 18 L Anion Gap (5 - 16) 11 BUN (7 - 17 mg/dL) 13 Creatinine (0.5 - 1.0 mg/dL) 0.9 Estimated GFR (>60 ml/min) > 60 BUN/Creatinine Ratio (7 - 25 %) 14.4 Hematology CBC w Diff Cancelled WBC Cancelled RBC Cancelled Hgb Cancelled Hct Cancelled MCV Cancelled MCH Cancelled MCHC Cancelled RDW Cancelled Plt Count Cancelled MPV Cancelled Urines Urinalysis MOD H Urine Color (YEL,AMB,STR) YEL Urine Clarity (CLEAR) CLDY H Urine pH (5.0 - 8.0) 6.0 Ur Specific [place] (1.001 - 1.035) >= 1.030 Urine Protein (NEG,<30 MG/DL) 100 H Urine Ketones (NEG) 15 H Urine Nitrite (NEG) POS H Urine Bilirubin (NEG) NEG Urine Urobilinogen (0.1 - 1.0 EU/dl) 0.2 Ur Leukocyte Esterase (NEG) NEG Ur Microscopic SEDIMENT EXAMINED Urine RBC (0 - 5 /HPF) 1-3 Urine WBC (0 - 2 /HPF) 5-10 H Ur Epithelial Cells (NONE,FEW) MOD H Urine Bacteria (NEG/NONE) MANY H Hyaline Casts (0/LPF) 1-3 H Granular Casts (NONE /LPF) 10-15 H Urine Mucus (FEW,NONE) FEW Urine Hemoglobin (NEG) MOD H Urine Glucose (N MG/DL) NEG 08/24 08/24 08/24 1509 1245 1210 Chemistry Sodium (137 - 145 mmol/L) 139 Potassium (3.5 - 5.1 mmol/L) 4.1 Chloride (98 - 107 mmol/L) 102 Carbon Dioxide (22 - 30 mmol/L) 26 Anion Gap (5 - 16) 11 BUN (7 - 17 mg/dL) 16 Creatinine (0.5 - 1.0 mg/dL) 1.2 H Estimated GFR (>60 ml/min) 44 L BUN/Creatinine Ratio (7 - 25 %) 13.3 Glucose (65 - 99 mg/dL) 123 H Lactic Acid (0.7 - 2.1 mmol/L) Cancelled 1.7 Calcium (8.4 - 10.2 mg/dL) 9.0 Total Bilirubin (0.2 - 1.3 mg/dL) 0.6 AST (14 - 36 U/L) 24 ALT (9 - 52 U/L) 42 Alkaline Phosphatase (<127 U/L) 95 Troponin I (< 0.11 ng/ml) 0.02 Total Protein (6.3 - 8.2 g/dL) 6.5 Albumin (3.5 - 5.0 g/dL) 3.4 L Globulin (1.9 - 4.2 gm/dL) 3.1 Albumin/Globulin Ratio (1.1 - 2.2 %) 1.1 Lipase (23 - 300 U/L) 32 Coagulation PT (9.4 - 12.5 SEC) 14.6 H INR (0.90 - 1.19) 1.34 H Hematology CBC w Diff MAN DIFF ORDERED WBC (4.8 - 10.8 /CUMM) 16.5 H RBC (4.20 - 5.40 /CUMM) 3.76 L Hgb (12.0 - 16.0 G/DL) 11.8 L Hct (37 - 47 %) 34.7 L MCV (81.0 - 99.0 FL) 92.4 MCH (27.0 - 31.0 PG) 31.5 H MCHC (33.0 - 37.0 G/DL) 34.1 RDW (11.5 - 14.5 %) 13.0 Plt Count (130 - 400 /CUMM) 243 MPV (7.4 - 10.4 FL) 9.7 Gran % (42.2 - 75.2 %) 83.1 H Lymphocytes % (20.5 - 51.1 %) 10.3 L Monocytes % (1.7 - 9.3 %) 6.5 Eosinophils % (0 - 5 %) 0 Basophils % (0.0 - 2.0 %) 0.1 Absolute Granulocytes (1.4 - 6.5 /CUMM) 13.7 H Absolute Lymphocytes (1.2 - 3.4 /CUMM) 1.7 Absolute Monocytes (0.10 - 0.60 /CUMM) 1.1 H Absolute Eosinophils (0.0 - 0.7 /CUMM) 0 Absolute Basophils (0.0 - 0.2 /CUMM) 0 Platelet Estimate (ADEQUATE) VERIFIED BY SMEAR Normocytic RBCs VERIFIED Normochromic RBCs VERIFIED Assessment/Plan Assessment/Recommendations: 1. Esophageal dysphagia, to solids. Differential diagnosis includes stricture, ring, secondary to fundoplication, dysmotility. 2. GERD, with frequent heartburn despite previous fundoplication. Recommendations * Obtain esophagram (barium swallow), with both liquid and solid (barium soaked bread) phases. Assess for etiology of dysphagia, degree of reflux/regurgitation , location/competence of fundoplication. * Defer EGD for now, until esophagram obtained, and pneumonia further treated. * PPI Consult Acknowledgment - Thank you for your consult request.
[2017-08-26 21:19] VITALS: BP 138/64
[2017-08-27 06:33] VITALS: BP 148/62
--- NOTE | 2017-08-27 07:38 | PN- Housestaff ---
Per Guerrero 08/27/17 0737: Subjective Follow-up For: PNA Dysphagia Subjective: Tmax 101 this morning with uptrending white ct. Patient reports she feels as though she is "suffocating" in her own mucus. She is unable to bring up anything but has a persistent cough. This afternoon after her barium esophagram she was noted to be hypoxic on room air 89% requiring 2LNC. Review of Systems Constitutional: Reports: see HPI. Objective Last 24 Hrs of Vital Signs/I&O Vital Signs Date Time Temp Pulse Resp B/P B/P Pulse O2 O2 Flow FiO2 Mean Ox Delivery Rate 08/27 0802 98.4 08/27 0802 98.4 08/27 0637 97 Room Air 08/27 0633 101.1 08/27 0633 101.1 104 18 148/62 91 / 0000 Room Air / 2119 99.8 91 19 138/64 94 Room Air / 1906 100.7 / 1905 100.7 / 1801 101.1 08/26 1709 93 Room Air / 1600 94 Room Air 06/ 1502 98.4 82 20 120/66 96 Room Air 06/ 1432 98.3 06/05 1313 101.1 / 1241 101.5 06/05 1241 101.5 82 20 96 Room Air /05 1101 94 Room Air Intake & Output 08/27 1600 08/27 0800 08/27 0000 Intake Total 210 250 Output Total Balance 210 250 Intake, IV 150 10 Intake, Oral 60 240 Number 0 0 Bowel Movements Physical Exam General Appearance: Alert, Oriented X3, Cooperative, No Acute Distress Cardiovascular: Regular Rate, Normal S1, Normal S2 Lungs: BLL wheezing Abdomen: Normal Bowel Sounds, Soft, No Tenderness Current Medications: Current Medications Sig/Tiffanie Start time Last Medication Dose Route Stop Time Status Admin Acetaminophen 650 MG Q6P PRN 08/27 0645 AC 08/27 PO 0633 Acetaminophen 650 MG .STK-MED ONE 08/26 1756 DC PO 08/26 1757 Acetaminophen 650 MG .STK-MED ONE 08/26 1240 DC PO 08/26 1241 Acetaminophen 650 MG Q6P PRN / 1000 DC / PO 1801 Albuterol Sulfate 3 ML BID 08/25 2100 AC 08/27 INH 0637 Albuterol Sulfate 3 ML Q6P PRN 08/25 1200 AC INH Aspirin 81 MG DAILY 08/24 1641 AC 06 PO 0901 Azithromycin 500 MG DAILY@1400 08/25 1400 AC 08/26 Sodium Chloride 250 ML IV 1400 Benzocaine 1 NATE Q8 08/26 1400 AC 08/27 TOP 0634 Benzonatate 100 MG TID 08/25 1400 DC 06 PO 2123 Ceftriaxone Sodium 1,000 MG DAILY@1400 / 1400 AC 08/26 IV 1400 Guaifenesin 10 ML .STK-MED ONE 08/26 2121 DC PO 08/26 212 Guaifenesin 10 ML Q6P PRN 08/25 0530 AC 08/26 PO 2123 Heparin Sodium 5,000 UNIT Q8 08/24 2200 AC (Porcine) SC Lorazepam 0.25 MG ONE ONE 08/26 1800 DC 08/26 PO 08/26 1801 1810 Metronidazole 500 MG IQ8 08/26 1600 AC 08/27 N/A 1 UNIT IV 0033 Ondansetron HCl 4 MG Q12P PRN 08/24 1715 IV Pantoprazole Sodium 40 MG BID 08/26 2100 AC 08/26 IV 2123 Pantoprazole Sodium 40 MG DAILY 08/25 0900 DC 08/26 IV 0901 Patient Medication 1 ED ONE ONE 08/26 1645 DC Teaching ED 08/26 1646 Potassium Chloride 40 MEQ ONCE ONE 08/27 0915 AC PO 08/27 0916 Sodium Chloride 1,000 ML Q13H 08/24 1645 DC 08/26 IV 0624 Last 24 Hrs of Lab/Loy Results Last 24 Hrs of Labs/Mics: Laboratory Tests 08/27/17 0710: Anion Gap 10, Estimated GFR > 60, BUN/Creatinine Ratio 10.0, CBC w Diff NO MAN DIFF REQ, RBC 3.01 L, MCV 92.7, MCH 31.8 H, MCHC 34.3, RDW 14.0, MPV 10.3, Gran % 77.1 H, Lymphocytes % 16.9 L, Monocytes % 5.5, Eosinophils % 0.2, Basophils % 0.3, Absolute Granulocytes 10.2 H, Absolute Lymphocytes 2.2, Absolute Monocytes 0.7 H, Absolute Eosinophils 0, Absolute Basophils 0 Assessment/Plan Assessment: Ms. Farooq is a 72-year-old female with past medical history of GERD,Mild nonerosive gastritis,Gastroesophageal reflux disease and paraesophageal hernia status post Dago's fundoplication (2010),Cervical disc herniations at C4-C5, C5-C6 and C6-C7 status Post cervical Arthodesis (2013), presented to the ED with chief complaints of fever #CAP vs Aspiration PNA #Hx of dysphagia #Acute hypoxic respiratory failure - 2/2 ?barium Plan: TRC/nebs PRN Acapella for mucus Chest physiotherapy Await LRC CXR consistent with RL PNA Continue Protonix for acid reflux Continue IV ceftriaxone, azithromycin, metronidazole Barium esophagram scheduled for today for dysphagia Appreciate GI recommendations ID consult Pulm consult Chest CT Diet -Regular DVT prophylaxis - ALPS/heparin CODE STATUS - full code Problem List: 1. Pneumonia Pain Ratin Pain Location: NA Pain Goal: Remain pain free Pain Plan: NA Tomorrow's Labs & Rationales: CBC, BEP Joe ANTOINE,[facility] 08/27/17 1211: Attending MD Review Statement Attending Statement Attending MD Statement: examined this patient, discuss w/resident/PA/SEO TEAM LEAD, agreed w/resident/PA/SEO TEAM LEAD, discussed with family, reviewed EMR data (avail), discussed with nursing, discussed with case mgmt, reviewed images, amended to note Attending Assessment/Plan: Patient seen and examined, she is back from her barium swallow. Patient feels very short of breath and wheezy all over. She has both upper and lower respiratory tract wheezing. She's also hypoxic to 89% on room air. Vital Signs Date Time Temp Pulse Resp B/P B/P Pulse O2 O2 Flow FiO2 Mean Ox Delivery Rate 08/27 0802 98.4 08/27 0802 98.4 08/27 0637 97 Room Air 08/27 0633 101.1 08/27 0633 101.1 104 18 148/62 91 06/06 0000 Room Air 08/26 2119 99.8 91 19 138/64 94 Room Air 06/ 1906 100.7 06/ 1905 100.7 06/ 1801 101.1 06/ 1709 93 Room Air 06/ 1600 94 Room Air / 1502 98.4 82 20 120/66 96 Room Air 08/26 1432 98.3 08/26 1313 101.1 08/26 1241 101.5 06/ 1241 101.5 82 20 96 Room Air ON EXAM; aox3, nad. cv; s1, s2, rrr resp; + exp wheeze with stridor. abd; soft, nt bs+ ext; no edema Laboratory Tests 08/27 0710 Chemistry Sodium (137 - 145 mmol/L) 143 Potassium (3.5 - 5.1 mmol/L) 3.3 L Chloride (98 - 107 mmol/L) 111 H Carbon Dioxide (22 - 30 mmol/L) 22 Anion Gap (5 - 16) 10 BUN (7 - 17 mg/dL) 8 Creatinine (0.5 - 1.0 mg/dL) 0.8 Estimated GFR (>60 ml/min) > 60 BUN/Creatinine Ratio (7 - 25 %) 10.0 Hematology CBC w Diff NO MAN DIFF REQ WBC (4.8 - 10.8 /CUMM) 13.2 H RBC (4.20 - 5.40 /CUMM) 3.01 L Hgb (12.0 - 16.0 G/DL) 9.5 L Hct (37 - 47 %) 27.8 L MCV (81.0 - 99.0 FL) 92.7 MCH (27.0 - 31.0 PG) 31.8 H MCHC (33.0 - 37.0 G/DL) 34.3 RDW (11.5 - 14.5 %) 14.0 Plt Count (130 - 400 /CUMM) 236 MPV (7.4 - 10.4 FL) 10.3 Gran % (42.2 - 75.2 %) 77.1 H Lymphocytes % (20.5 - 51.1 %) 16.9 L Monocytes % (1.7 - 9.3 %) 5.5 Eosinophils % (0 - 5 %) 0.2 Basophils % (0.0 - 2.0 %) 0.3 Absolute Granulocytes (1.4 - 6.5 /CUMM) 10.2 H Absolute Lymphocytes (1.2 - 3.4 /CUMM) 2.2 Absolute Monocytes (0.10 - 0.60 /CUMM) 0.7 H Absolute Eosinophils (0.0 - 0.7 /CUMM) 0 Absolute Basophils (0.0 - 0.2 /CUMM) 0 A/P; 2 y/o F with pmh sig for GERD,Mild nonerosive gastritis,Gastroesophageal reflux disease and paraesophageal hernia status post Dago's fundoplication ( 2010),Cervical disc herniations at C4-C5, C5-C6 and C6-C7 status Post cervical Arthodesis (2013) admitted with generalized weakness, fever and vomiting possible aspiration pna. Patient underwent a swallow today. We'll follow-up on the results. This was recommended by GI secondary to patients complaining about dysphagia. Patient on a PPI. Patient continues to spike fever. Yesterday we added Flagyl to her possible anaerobes for possibility of aspiration pneumonia. Patient still having fevers. Will obtain CT chest without contrast. Will obtain pulmonology and ID consult. So far her cultures remained negative. She continues to have leukocytosis. I am going to add Solu-Medrol as patient wheezing significantly and now hypoxic. Continue TRC nebs. DVT px; Hep sq.
[2017-08-27 08:00] LABS: ABSOLUTE BASOPHIL COUNT 0 /CUMM (0.0-0.2); ABSOLUTE EOSINOPHIL COUNT 0 /CUMM (0.0-0.7); ABSOLUTE GRANULOCYTE CT 10.2 /CUMM (1.4-6.5); ABSOLUTE LYMPH COUNT 2.2 /CUMM (1.2-3.4); ABSOLUTE MONOCYTE COUNT 0.7 /CUMM (0.10-0.60); BASOPHIL % 0.3 % (0.0-2.0); EOSINOPHIL % 0.2 % (0-5); GRANULOCYTE % 77.1 % (42.2-75.2); HEMATOCRIT 27.8 % (37-47); MEAN CORPUSCULAR HGB 31.8 PG (27.0-31.0); MEAN CORPUSCULAR HGB CONC 34.3 G/DL (33.0-37.0); MEAN CORPUSCULAR VOLUME 92.7 FL (81.0-99.0); MEAN PLATELET VOLUME 10.3 FL (7.4-10.4); PLATELET COUNT 236 /CUMM (130-400); RED BLOOD CELL CT 3.01 /CUMM (4.20-5.40); WHITE BLOOD CELL COUNT 13.2 /CUMM (4.8-10.8)
--- NOTE | 2017-08-27 14:00 | CT SCAN REPORT ---
EXAMINATION: CT CHEST WITHOUT CONTRAST CLINICAL INFORMATION: Shortness of breath. History of dysphasia. Question barium aspiration. Treating for community acquired pneumonia vs. aspiration pneumonia. COMPARISON: Barium swallow from the same date, chest x-ray from 08/25/2017, and CT dated 01/20/2012 TECHNIQUE: Multidetector volumetric CT imaging of the chest was done. Axial MIP volume rendering provided. Sagittal and coronal reformatted images were obtained. DLP: 209 mGy-cm FINDINGS: [employer]: ACDF plate is present at the cervical spine. Barium contrast material is present within the stomach and bowel loops in the upper abdomen. LUNGS: Patchy consolidation and groundglass opacities are present in the right lower lobe. The airways in this region are clear. Right upper lobe, right middle lobe, left upper lobe, and left lower lobe are clear aside from a few areas of atelectasis in the left lower lobe and medial segment of the right middle lobe. No pulmonary nodules are identified. No barium is present within the trachea, bronchi, or lung parenchyma. MEDIASTINUM: Heart is normal in size. No pericardial effusion. No mediastinal or hilar adenopathy. Imaged portion of the thyroid gland is unremarkable. A small amount of contrast material is present within the distal esophagus. PLEURA: There are small dependent bilateral pleural effusions, right side greater than left. No superimposed complexity. No pneumothorax. AXILLA: No lymphadenopathy. UPPER ABDOMEN: Small amount of barium contrast material present within the stomach. Imaged portion of the upper abdomen as well as unremarkable. OSSEOUS STRUCTURES: There is minimal degenerative disc disease in the thoracic spine. No acute osseous findings. IMPRESSION: 1. Patchy airspace consolidation and groundglass opacification in the right lower lobe dependently may correspond to pneumonia or aspiration. The more central bronchi appear clear, making aspiration slightly less likely. No evidence of barium aspiration. 2. Small bilateral pleural effusions.
[2017-08-27 14:13] VITALS: BP 143/51
--- NOTE | 2017-08-27 14:30 | RADIOLOGY REPORT ---
EXAMINATION: FLUOROSCOPIC BARIUM SWALLOW CLINICAL INFORMATION: Dysphagia. COMPARISON: Barium swallow 01/23/2012. Chest x-ray 08/25/2017. TECHNIQUE: A barium swallow was performed the patient in the upright and recumbent positions using thin and thick consistencies of barium. The patient was also given a barium tablet to swallow. Multiple spot films were acquired. FINDINGS: The patient is status post 4 level ACDF between C4 and C7. The hardware appears intact and the intervertebral disc grafts appear well integrated. The patient initiated the swallowing mechanism normally. There is no evidence of oropharyngeal incoordination or aspiration. The vallecula and piriform sinuses appear normal. The esophagus is normal motility. There are serpiginous filling defects in the distal esophagus, which were not definitively visualized on the prior study. There is no holdup of contrast at the gastroesophageal junction. The barium tablet passed rapidly through the esophagus with minimal holdup at the gastroesophageal junction. No gastroesophageal reflux was demonstrated. There are sequelae of prior Dago fundoplication. No hiatal hernia was demonstrated. The visualized stomach and proximal small bowel are unremarkable. FLUOROSCOPY TIME: 6 minutes and 33 seconds. IMPRESSION: 1. The patient initiated the swallowing mechanism normally without evidence of aspiration. 2. There is normal esophageal motility. Serpiginous filling defects in the distal esophagus may be consistent with prominent venous structures or luminal irregularity. Endoscopy could be considered for further evaluation. 3. No gastroesophageal reflux or hiatal hernia are demonstrated.
--- NOTE | 2017-08-27 14:31 | Cons- Pulmonary ---
See Addendum General Information and HPI Consulting Request Date of Consult: 08/27/17 Requested By: med team History of Present Illness: Patient is a 72-year-old female with past medical history of GERD,Mild nonerosive gastritis,Gastroesophageal reflux disease and paraesophageal hernia status post Dago's fundoplication (2010),Cervical disc herniations at C4-C5, C5-C6 and C6-C7 status Post cervical Arthodesis (2012), presented to the ED with chief complaints of fever and vomiting. Has had fundal plication for gerd before Does say that she has sig difficulty having her food going down the esophagus at times and sometimes she has to bring up old food No aspiration while swallowing but has sig gerd Allergy history -penicillin causes rash, naproxen causes GI distress Surgical history - Gastroesophageal reflux disease and paraesophageal hernia status post Daog's fundoplication (2010) Cervical disc herniations at C4-C5, C5-C6 and C6-C7 status Post cervical Arthodesis (2012) Tubal ligation Appendicectomy Personal history -lives with the family, retired [employer] employee, she has 8 dogs, nobody is sick, denies smoking and alcohol. Family history - Father - diabetes, hypertension Mother -lung and kidney cancer Has many dogs General Appearance Alert, Oriented X3, Cooperative, No Acute Distress Skin No Rashes, No Breakdown Skin Temp/Moisture Exam: Warm/Dry Sepsis Skin Exam (color): Normal for Ethnicity HEENT Atraumatic, PERRLA, EOMI Neck Supple, No JVD Cardiovascular Normal S1, Normal S2 Lungs Clear to Auscultation, Normal Air Movement Abdomen Soft, No Tenderness Neurological Normal Gait, Normal Speech, Strength at 5/5 X4 Ext, Normal Tone, Sensation Intact, Cranial Nerves 3-12 NL, Reflexes 2+ Extremities No Clubbing, No Cyanosis, No Edema Vascular Normal Pulses, Pulses Symmetrical Allergies/Medications Allergies: Coded Allergies: Penicillins (RASH 08/24/17) naproxen (VOMITING 08/24/17) Home Med List: Esomeprazole Magnesium (Nexium) 20 MG CAPSULE. 1 CAP PO PRN GI (Reported) Review of Systems Review of Systems Constitutional: Reports: see HPI. Past History Travel History Traveled to [place] past 21 day No Medical History Neurological: NONE EENT: NONE Cardiovascular: NONE Respiratory: NONE Gastrointestinal: GERD Hepatic: NONE Renal: NONE Musculoskeletal: NONE Psychiatric: NONE Endocrine: NONE Blood Disorders: NONE Cancer(s): NONE Surgical History Surgical History: non-contributory Psychosocial History Where Do You Live? Home Services at Home: None Smoking Status: Never Smoked Exam & Diagnostic Data Last 24 Hrs of Vital Signs/I&O Vital Signs Date Time Temp Pulse Resp B/P B/P Pulse O2 O2 Flow FiO2 Mean Ox Delivery Rate 08/27 1413 101.1 105 22 143/51 97 Nasal 2.0L Cannula 08/27 08 98.4 08/27 0802 98.4 08/27 0637 97 Room Air 08/27 0633 101.1 08/27 0633 101.1 104 18 148/62 91 08/27 0000 Room Air 08/26 2119 99.8 91 19 138/64 94 Room Air 08/26 1906 100.7 08/26 1905 100.7 08/26 1801 101.1 08/26 1709 93 Room Air 08/26 1600 94 Room Air 08/26 1502 98.4 82 20 120/66 96 Room Air 08/26 1432 98.3 Intake & Output 08/27 1600 08/27 0800 08/27 0000 Intake Total 210 250 Output Total Balance 210 250 Intake, IV 150 10 Intake, Oral 60 240 Number 0 0 Bowel Movements Laboratory Tests 08/27 08/26 0710 0710 Chemistry Sodium (137 - 145 mmol/L) 143 144 Potassium (3.5 - 5.1 mmol/L) 3.3 L 3.9 Chloride (98 - 107 mmol/L) 111 H 112 H Carbon Dioxide (22 - 30 mmol/L) 22 20 L Anion Gap (5 - 16) 10 11 BUN (7 - 17 mg/dL) 8 11 Creatinine (0.5 - 1.0 mg/dL) 0.8 0.8 Estimated GFR (>60 ml/min) > 60 > 60 BUN/Creatinine Ratio (7 - 25 %) 10.0 13.8 Hematology CBC w Diff NO MAN DIFF REQ NO MAN DIFF REQ WBC (4.8 - 10.8 /CUMM) 13.2 H 13.1 H RBC (4.20 - 5.40 /CUMM) 3.01 L 3.16 L Hgb (12.0 - 16.0 G/DL) 9.5 L 10.0 L Hct (37 - 47 %) 27.8 L 29.5 L MCV (81.0 - 99.0 FL) 92.7 93.3 MCH (27.0 - 31.0 PG) 31.8 H 31.8 H MCHC (33.0 - 37.0 G/DL) 34.3 34.0 RDW (11.5 - 14.5 %) 14.0 13.4 Plt Count (130 - 400 /CUMM) 236 207 MPV (7.4 - 10.4 FL) 10.3 10.0 Gran % (42.2 - 75.2 %) 77.1 H 81.2 H Lymphocytes % (20.5 - 51.1 %) 16.9 L 11.4 L Monocytes % (1.7 - 9.3 %) 5.5 7.0 Eosinophils % (0 - 5 %) 0.2 0.1 Basophils % (0.0 - 2.0 %) 0.3 0.3 Absolute Granulocytes (1.4 - 6.5 /CUMM) 10.2 H 10.7 H Absolute Lymphocytes (1.2 - 3.4 /CUMM) 2.2 1.5 Absolute Monocytes (0.10 - 0.60 /CUMM) 0.7 H 0.9 H Absolute Eosinophils (0.0 - 0.7 /CUMM) 0 0 Absolute Basophils (0.0 - 0.2 /CUMM) 0 0 Microbiology Date/Time Procedure - Status Source Growth 08/24 1652 Urine Culture - COMP URINE ROUT Last 48 Hrs of Labs/Loy: Laboratory Tests 08/27/17 0710: Anion Gap 10, Estimated GFR > 60, BUN/Creatinine Ratio 10.0, CBC w Diff NO MAN DIFF REQ, RBC 3.01 L, MCV 92.7, MCH 31.8 H, MCHC 34.3, RDW 14.0, MPV 10.3, Gran % 77.1 H, Lymphocytes % 16.9 L, Monocytes % 5.5, Eosinophils % 0.2, Basophils % 0.3, Absolute Granulocytes 10.2 H, Absolute Lymphocytes 2.2, Absolute Monocytes 0.7 H, Absolute Eosinophils 0, Absolute Basophils 0 08/26/17 0710: Anion Gap 11, Estimated GFR > 60, BUN/Creatinine Ratio 13.8, CBC w Diff NO MAN DIFF REQ, RBC 3.16 L, MCV 93.3, MCH 31.8 H, MCHC 34.0, RDW 13.4, MPV 10.0, Gran % 81.2 H, Lymphocytes % 11.4 L, Monocytes % 7.0, Eosinophils % 0.1, Basophils % 0.3, Absolute Granulocytes 10.7 H, Absolute Lymphocytes 1.5, Absolute Monocytes 0.9 H, Absolute Eosinophils 0, Absolute Basophils 0 Assessment/Plan Impression/Plan: SIGNIFICANT DATA Barium swallow pictures reviewed appears that she has dilated esophagus. Patient does report is not in the computer yet. CAT scan is noted right lower lobe pneumonia with small effusion which needs to be followed Cultures so far unremarkable Potassium is low no significant lactic acidosis upon admission anion gap today is 10 her initial LFTs were unremarkable troponin was normal last HIV was negative white count upon admission was 16,000 with 83% segs now it's 13,000. 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 LUNGS: Patchy consolidation and groundglass opacities are present in the right lower lobe. The airways in this region are clear. Right upper lobe, right middle lobe, left upper lobe, and left lower lobe are clear aside from a few areas of atelectasis in the left lower lobe and medial segment of the right middle lobe. No pulmonary nodules are identified. No barium is present within the trachea, bronchi, or lung parenchyma. MEDIASTINUM: Heart is normal in size. No pericardial effusion. No mediastinal or hilar adenopathy. Imaged portion of the thyroid gland is unremarkable. A small amount of contrast material is present within the distal esophagus. PLEURA: There are small dependent bilateral pleural effusions, right side greater than left. No superimposed complexity. No pneumothorax. AXILLA: No lymphadenopathy. UPPER ABDOMEN: Small amount of barium contrast material present within the stomach. Imaged portion of the upper abdomen as well as unremarkable. OSSEOUS STRUCTURES: There is minimal degenerative disc disease in the thoracic spine. No acute osseous findings. IMPRESSION: 1. Patchy airspace consolidation and groundglass opacification in the right lower lobe dependently may correspond to pneumonia or aspiration. The more central bronchi appear clear, making aspiration slightly less likely. No evidence of barium aspiration. 2. Small bilateral pleural effusions. DICTATED BY: Axel Hung MD DATE/TIME DICTATED:08/27/171347 IMPRESSION 72 y/o F with pmh sig for GERD,Mild nonerosive gastritis,Gastroesophageal reflux disease and paraesophageal hernia status post Dago's fundoplication (2010), Cervical disc herniations at C4-C5, C5-C6 and C6-C7 status Post cervical Arthodesis (2012) admitted with generalized weakness, fever and vomiting possible aspiration pna. ISsues * Right lower lobe pneumonia with a small parapneumonic effusion ongoing fever. His may be related to probable aspiration as she appears to have a very dilated esophagus from her barium swallow. At the barium swallow report is pending but per my reading it appears that she probably does have lower esophageal narrowing we'll wait for the final report. Patient will be seen by GI as well * No clinical evidence suggestive of atypical infections like tuberculosis etc. however Legionella etc. needs to be ruled out * Very small parapneumonic effusion which needs to be followed * Previous GERD, recent difficulty in having her transudative fluid from the lower esophagus, previous EGD findings suggestive of probable Cervantes's needs to be followed GI eval is already been obtained we'll await GI evaluation RECOMMENDATION After one dose of Solu-Medrol this can be held Continue antibiotics with Flagyl, ceftriaxone Continue azithromycin Check urinary antigen for Legionella and strep pneumo Keep the head of bed at 45 Mechanical soft diet Hold aspirin for now We will repeat chest x-ray tomorrow Have respiratory induce sputum with hypertonic saline and send the sputum for culture, including Legionella PCR, AFB. Check HIV Change nebulizer to DuoNeb 3 times a day Proton pump inhibitor by mouth or IV twice a day Continue benzonatate We will follow closely Await GI evaluation Consult Acknowledgment - Thank you for your consult request.
--- NOTE | 2017-08-27 15:30 | Cons- Infect Disease ---
General Information and HPI Consulting Request Date of Consult: 08/27/17 Requested By: Zena Diaz MD Reason for Consult: Pneumonia with persistent fever and leukocytosis Source of Information: patient History of Present Illness: This is a 72-year-old woman with a history of GERD admitted on August 24 with a 4 day history of fever, chills, dry cough, headache, myalgias, shortness of breath and weakness, leading to 3 falls on the day prior to admission. On admission she was febrile to 103.5. Laboratory data revealed a white blood cell count of 16.5, BUN/creatinine 16 and 1.2, with normal liver enzymes, INR 1.34. Urinalysis 1-3 RBC/5-10 WBCs. Chest x-ray revealed a mild patchy density of the right lower lobe. CT of the head was negative for any acute process. She was begun on Ceftriaxone and Azithromycin and Flagyl was added on August 26 because of a persistent fever. She has remained febrile, though lower grade, and reports no improvement since admission, with a persistent dry cough, shortness of breath , headache and chills. Today she underwent a CT of the chest, which revealed patchy airspace consolidation and ground glass opacification in the right lower lobe with small bilateral pleural effusions. Allergies/Medications Allergies: Coded Allergies: Penicillins (RASH 08/24/17) naproxen (VOMITING 08/24/17) Home Med List: Esomeprazole Magnesium (Nexium) 20 MG CAPSULE. 1 CAP PO PRN GI (Reported) Past History Travel History Traveled to [place] past 21 day No Medical History Neurological: NONE EENT: NONE Cardiovascular: NONE Respiratory: NONE Gastrointestinal: GERD Hepatic: NONE Renal: NONE Musculoskeletal: NONE Psychiatric: NONE Endocrine: NONE Blood Disorders: NONE Cancer(s): NONE History of MRSA: No History of VRE: No History of CDIFF: No Isolation History: Standard Pneumonia Vaccine: 11/21/12 Surgical History Surgical History: appendectomy, cholecystectomy, spinal fusion (cervical), Dago fundoplication Psychosocial History Where Do You Live? Home Services at Home: None Smoking Status: Never Smoked Review of Systems Review of Systems All Other Systems: Reviewed and Negative Exam & Diagnostic Data Last 24 Hrs of Vital Signs/I&O Vital Signs Date Time Temp Pulse Resp B/P B/P Pulse O2 O2 Flow FiO2 Mean Ox Delivery Rate 08/27 1413 101.1 105 22 143/51 97 Nasal 2.0L Cannula 08/27 1147 89 Room Air Room Air 08/27 0802 98.4 08/27 0802 98.4 08/27 0637 97 Room Air 08/27 0633 101.1 08/27 0633 101.1 104 18 148/62 91 08/27 0000 Room Air 08/26 2119 99.8 91 19 138/64 94 Room Air 08/26 1906 100.7 08/26 1905 100.7 08/26 1801 101.1 08/26 1709 93 Room Air 08/26 1600 94 Room Air Intake & Output 08/27 1600 08/27 0800 08/27 0000 Intake Total 210 250 Output Total Balance 210 250 Intake, IV 150 10 Intake, Oral 60 240 Number 0 0 Bowel Movements Physical Exam Other Physical Findings: She is awake and alert in no acute distress. T-max 101.5. Skin scattered ecchymoses on the right hip and right lower extremity. HEENT exam is negative. Neck is supple with no adenopathy. Lungs are clear. Heart regular rhythm with no murmur. Abdomen is soft, nontender with positive bowel sounds. Back no CVA tenderness. Extremities no cyanosis, clubbing or edema. Neuro is without focality. Last 24 Hours of Lab Results: Laboratory Tests 08/27 0710 Chemistry Sodium (137 - 145 mmol/L) 143 Potassium (3.5 - 5.1 mmol/L) 3.3 L Chloride (98 - 107 mmol/L) 111 H Carbon Dioxide (22 - 30 mmol/L) 22 Anion Gap (5 - 16) 10 BUN (7 - 17 mg/dL) 8 Creatinine (0.5 - 1.0 mg/dL) 0.8 Estimated GFR (>60 ml/min) > 60 BUN/Creatinine Ratio (7 - 25 %) 10.0 Hematology CBC w Diff NO MAN DIFF REQ WBC (4.8 - 10.8 /CUMM) 13.2 H RBC (4.20 - 5.40 /CUMM) 3.01 L Hgb (12.0 - 16.0 G/DL) 9.5 L Hct (37 - 47 %) 27.8 L MCV (81.0 - 99.0 FL) 92.7 MCH (27.0 - 31.0 PG) 31.8 H MCHC (33.0 - 37.0 G/DL) 34.3 RDW (11.5 - 14.5 %) 14.0 Plt Count (130 - 400 /CUMM) 236 MPV (7.4 - 10.4 FL) 10.3 Gran % (42.2 - 75.2 %) 77.1 H Lymphocytes % (20.5 - 51.1 %) 16.9 L Monocytes % (1.7 - 9.3 %) 5.5 Eosinophils % (0 - 5 %) 0.2 Basophils % (0.0 - 2.0 %) 0.3 Absolute Granulocytes (1.4 - 6.5 /CUMM) 10.2 H Absolute Lymphocytes (1.2 - 3.4 /CUMM) 2.2 Absolute Monocytes (0.10 - 0.60 /CUMM) 0.7 H Absolute Eosinophils (0.0 - 0.7 /CUMM) 0 Absolute Basophils (0.0 - 0.2 /CUMM) 0 Last 24 Hours of Loy Results: Blood cultures 2 August 24 negative Urine culture August 24 negative Diagnostic Data Recent Imaging Findings: Chest x-ray August 24 revealed a mild patchy density of the right lower lobe. CT of the head August 24 negative for any acute process Chest x-ray August 25 reveals a progressive opacity in the right lung base with air bronchograms, volume loss and elevation of the right hemidiaphragm CT of the chest August 27 reveals patchy airspace consolidation and ground glass opacification in the right lower lobe, with small bilateral pleural effusions Barium swallow August 27 reveals normal esophageal motility with no GE reflux or hiatal hernia demonstrated Assessment/Plan Assessment/Plan Impression: This is a 72-year-old woman with a history of GERD admitted on August 24 with a 4 day history of fever, chills, dry cough, headache, myalgias, shortness of breath and weakness, found to be febrile with a leukocytosis and a right lower lobe density on chest x-ray, with persistent fevers, cough and shortness of breath despite now 3 days of empiric antibiotics for a community acquired pneumonia. Her clinical presentation is suggestive of an atypical pneumonia, with a dry cough, headaches and body aches. Possible organisms include Legionella, mycoplasma or chlamydia pneumoniae, all of which should be covered by the Azithromycin, but, as she has been on what appears to be appropriate antibiotics for 72 hours, with little evidence of improvement, feel that her antibiotics can be adjusted to cover for possible resistant organisms. She does have a Penicillin allergy, raising concern for a possible drug fever to Ceftriaxone, though she has no rash or eosinophils to suggest this. More typical organisms, including strep pneumoniae and H. influenzae, are possible, with pleural effusions on CT scan raising concern for an empyema, though this seems unlikely as the effusions are small and bilateral. She has received a significant amount of IV fluids, raising concern for possible fluid overload, which could be contributing to her respiratory distress. Suggestion: 1. Urine for strep pneumo antigen and Legionella antigen 2. Could send serum for cold agglutinins and chlamydia pneumoniae and mycoplasma titers 3. Would decrease IV fluids and consider need for diuresis 4. Consider echocardiogram 5. Consider thoracentesis in the a.m. if she remains febrile 6. Discontinue Ceftriaxone, Azithromycin and Flagyl 7. Begin Moxifloxacin 400 mg p.o. every 24 hours Consult Acknowledgment - Thank you for your consult request.
--- NOTE | 2017-08-27 16:25 | PN- Gastroenterology ---
Assessment/Plan GI Assessment/Recommendations: 1. Esophageal dysphagia, to solids. Differential diagnosis includes stricture, ring, secondary to fundoplication, dysmotility. Despite my recommendation, the esophagram was not performed with a solid-phase (a barium tablet does not show the same information). Nevertheless there was no evident aspiration, reflux/ regurgitation, or significant resistance of passage to liquid barium. There is no recurrent hiatal hernia. At this time, there is no strong evidence of aspiration as an etiology of pneumonia. 2. GERD, with frequent heartburn despite previous fundoplication. Recommendations * EGD should be performed, but will defer until pulmonary status allows (Friday? ) * PPI Subjective Subjective: Still short of breath, and with chest pressure. Objective Vital Signs and I&Os Vital Signs Date Time Temp Pulse Resp B/P B/P Pulse O2 O2 Flow FiO2 Mean Ox Delivery Rate 08/27 1413 101.1 105 22 143/51 97 Nasal 2.0L Cannula 08/27 1147 89 Room Air Room Air 08/27 0802 98.4 08/27 0802 98.4 08/27 0637 97 Room Air 08/27 0633 101.1 08/27 0633 101.1 104 18 148/62 91 08/27 0000 Room Air 08/26 2119 99.8 91 19 138/64 94 Room Air 08/26 1906 100.7 08/26 1905 100.7 08/26 1801 101.1 08/26 1709 93 Room Air Intake & Output 08/27 1600 08/27 0400 06/ 1600 06/05 0400 / 1600 / 0400 Intake Total 640 094 4925 685 1740 Output Total 300 0 Balance 976 236 2720 685 1740 Intake, IV 150 10 553 200 4073 Intake, Oral 60 240 930 300 540 Number 0 0 0 0 Bowel Movements Output, Urine 300 0 Physical Exam: Abdomen soft, nontender. Current Medications: Current Medications Sig/Tiffanie Start time Last Medication Dose Route Stop Time Status Admin Acetaminophen 650 MG Q6P PRN 08/27 0645 AC 08/27 PO 1426 Acetaminophen 650 MG .STK-MED ONE 08/26 1756 DC PO 08/26 1757 Acetaminophen 650 MG Q6P PRN 08/25 1000 DC 08/26 PO 1801 Acetylcysteine 2 ML BID 08/27 2100 CAN INH Acetylcysteine 2 ML BID 08/27 2100 AC INH Albuterol Sulfate 3 ML TID 08/27 2100 AC INH Albuterol Sulfate 3 ML EVERY 4 HRS/AWAKE 08/27 1600 DC INH Albuterol Sulfate 3 ML BID 08/25 2100 DC 08/27 INH 1147 Albuterol Sulfate 3 ML Q6P PRN 08/25 1200 AC INH Aspirin 81 MG DAILY 08/24 1641 DC 08/27 PO 1243 Azithromycin 500 MG DAILY@1400 / 1400 DC 08/27 Sodium Chloride 250 ML IV 1429 Benzocaine 1 NATE Q8 08/26 1400 AC 08/27 TOP 0634 Benzonatate 100 MG TID 08/27 2100 AC PO Benzonatate 100 MG TID 08/25 1400 DC 08/26 PO 2123 Ceftriaxone Sodium 1,000 MG DAILY@1400 08/25 1400 DC 08/27 IV 1429 Guaifenesin 10 ML .STK-MED ONE 08/26 2121 DC PO 08/26 2123 Guaifenesin 10 ML Q6P PRN 08/25 0530 AC 08/26 PO 2123 Heparin Sodium 5,000 UNIT Q8 08/24 2200 AC (Porcine) SC Lorazepam 0.25 MG ONE ONE 08/26 1800 DC 08/26 PO 08/26 1801 1810 Methylprednisolone 40 MG ONCE ONE 08/27 1445 DC IV 08/27 1446 Methylprednisolone 40 MG Q8 08/27 1400 DC IV Metronidazole 500 MG IQ8 08/26 1600 DC 08/27 N/A 1 UNIT IV 1243 Moxifloxacin HCl 400 MG DAILY 08/27 1500 AC PO Ondansetron HCl 4 MG Q12P PRN 08/24 1715 AC IV Pantoprazole Sodium 40 MG BID 08/26 2100 AC 08/27 IV 1243 Patient Medication 1 ED ONE ONE 08/27 1145 DC 08/27 Teaching ED 08/27 1146 1244 Patient Medication 1 ED ONE ONE 08/26 1645 DC Teaching ED 08/26 1646 Potassium Chloride 40 MEQ ONCE ONE 08/27 0915 DC 08/27 PO 08/27 0916 1243 Results Pertinent Lab Results: Laboratory Tests 08/27 06 0710 0710 Chemistry Sodium (137 - 145 mmol/L) 143 144 Potassium (3.5 - 5.1 mmol/L) 3.3 L 3.9 Chloride (98 - 107 mmol/L) 111 H 112 H Carbon Dioxide (22 - 30 mmol/L) 22 20 L Anion Gap (5 - 16) 10 11 BUN (7 - 17 mg/dL) 8 11 Creatinine (0.5 - 1.0 mg/dL) 0.8 0.8 Estimated GFR (>60 ml/min) > 60 > 60 BUN/Creatinine Ratio (7 - 25 %) 10.0 13.8 Hematology CBC w Diff NO MAN DIFF REQ NO MAN DIFF REQ WBC (4.8 - 10.8 /CUMM) 13.2 H 13.1 H RBC (4.20 - 5.40 /CUMM) 3.01 L 3.16 L Hgb (12.0 - 16.0 G/DL) 9.5 L 10.0 L Hct (37 - 47 %) 27.8 L 29.5 L MCV (81.0 - 99.0 FL) 92.7 93.3 MCH (27.0 - 31.0 PG) 31.8 H 31.8 H MCHC (33.0 - 37.0 G/DL) 34.3 34.0 RDW (11.5 - 14.5 %) 14.0 13.4 Plt Count (130 - 400 /CUMM) 236 207 MPV (7.4 - 10.4 FL) 10.3 10.0 Gran % (42.2 - 75.2 %) 77.1 H 81.2 H Lymphocytes % (20.5 - 51.1 %) 16.9 L 11.4 L Monocytes % (1.7 - 9.3 %) 5.5 7.0 Eosinophils % (0 - 5 %) 0.2 0.1 Basophils % (0.0 - 2.0 %) 0.3 0.3 Absolute Granulocytes (1.4 - 6.5 /CUMM) 10.2 H 10.7 H Absolute Lymphocytes (1.2 - 3.4 /CUMM) 2.2 1.5 Absolute Monocytes (0.10 - 0.60 /CUMM) 0.7 H 0.9 H Absolute Eosinophils (0.0 - 0.7 /CUMM) 0 0 Absolute Basophils (0.0 - 0.2 /CUMM) 0 0 06/04 06/04 0620 0514 Chemistry Sodium (137 - 145 mmol/L) 143 143 Potassium (3.5 - 5.1 mmol/L) 3.9 3.6 Chloride (98 - 107 mmol/L) 114 H 114 H Carbon Dioxide (22 - 30 mmol/L) 19 L 18 L Anion Gap (5 - 16) 10 11 BUN (7 - 17 mg/dL) 14 13 Creatinine (0.5 - 1.0 mg/dL) 0.9 0.9 Estimated GFR (>60 ml/min) > 60 > 60 BUN/Creatinine Ratio (7 - 25 %) 15.6 14.4 Hematology CBC w Diff MAN DIFF ORDERED Cancelled WBC (4.8 - 10.8 /CUMM) 12.3 H Cancelled RBC (4.20 - 5.40 /CUMM) 3.36 L Cancelled Hgb (12.0 - 16.0 G/DL) 10.6 L Cancelled Hct (37 - 47 %) 31.1 L Cancelled MCV (81.0 - 99.0 FL) 92.6 Cancelled MCH (27.0 - 31.0 PG) 31.5 H Cancelled MCHC (33.0 - 37.0 G/DL) 34.0 Cancelled RDW (11.5 - 14.5 %) 13.4 Cancelled Plt Count (130 - 400 /CUMM) 194 Cancelled MPV (7.4 - 10.4 FL) 9.5 Cancelled Gran % (42.2 - 75.2 %) 84.0 H Lymphocytes % (20.5 - 51.1 %) 10.1 L Monocytes % (1.7 - 9.3 %) 5.9 Eosinophils % (0 - 5 %) 0 Basophils % (0.0 - 2.0 %) 0 Absolute Granulocytes (1.4 - 6.5 /CUMM) 10.4 H Absolute Lymphocytes (1.2 - 3.4 /CUMM) 1.2 Absolute Monocytes (0.10 - 0.60 /CUMM) 0.7 H Absolute Eosinophils (0.0 - 0.7 /CUMM) 0 Absolute Basophils (0.0 - 0.2 /CUMM) 0 Platelet Estimate (ADEQUATE) ADEQUATE Normocytic RBCs VERIFIED Normochromic RBCs VERIFIED 08/24 1652 Urines Urinalysis MOD H Urine Color (YEL,AMB,STR) YEL Urine Clarity (CLEAR) CLDY H Urine pH (5.0 - 8.0) 6.0 Ur Specific [place] (1.001 - 1.035) >= 1.030 Urine Protein (NEG,<30 MG/DL) 100 H Urine Ketones (NEG) 15 H Urine Nitrite (NEG) POS H Urine Bilirubin (NEG) NEG Urine Urobilinogen (0.1 - 1.0 EU/dl) 0.2 Ur Leukocyte Esterase (NEG) NEG Ur Microscopic SEDIMENT EXAMINED Urine RBC (0 - 5 /HPF) 1-3 Urine WBC (0 - 2 /HPF) 5-10 H Ur Epithelial Cells (NONE,FEW) MOD H Urine Bacteria (NEG/NONE) MANY H Hyaline Casts (0/LPF) 1-3 H Granular Casts (NONE /LPF) 10-15 H Urine Mucus (FEW,NONE) FEW Urine Hemoglobin (NEG) MOD H Urine Glucose (N MG/DL) NEG Imaging/Other Studies: Esophagram IMPRESSION: 1. The patient initiated the swallowing mechanism normally without evidence of aspiration. 2. There is normal esophageal motility. Serpiginous filling defects in the distal esophagus may be consistent with prominent venous structures or luminal irregularity. Endoscopy could be considered for further evaluation. 3. No gastroesophageal reflux or hiatal hernia are demonstrated.
[2017-08-27 23:20] VITALS: BP 127/65
[2017-08-28 06:40] VITALS: BP 124/77
[2017-08-28 07:03] VITALS: BP 124/77
[2017-08-28 08:04] LABS: ABSOLUTE BASOPHIL COUNT 0 /CUMM (0.0-0.2); ABSOLUTE EOSINOPHIL COUNT 0 /CUMM (0.0-0.7); ABSOLUTE LYMPH COUNT 1.1 /CUMM (1.2-3.4); ABSOLUTE MONOCYTE COUNT 0.2 /CUMM (0.10-0.60); BASOPHIL % 0 % (0.0-2.0); EOSINOPHIL % 0 % (0-5); GRANULOCYTE % 88.7 % (42.2-75.2); HEMATOCRIT 29.8 % (37-47); MEAN CORPUSCULAR HGB 31.7 PG (27.0-31.0); MEAN CORPUSCULAR HGB CONC 34.1 G/DL (33.0-37.0); MEAN PLATELET VOLUME 9.9 FL (7.4-10.4); PLATELET COUNT 264 /CUMM (130-400); RBC DISTRIBUTION WIDTH 14.1 % (11.5-14.5); WHITE BLOOD CELL COUNT 11.3 /CUMM (4.8-10.8)
--- NOTE | 2017-08-28 10:21 | PN- Housestaff ---
See Addendum Subjective Follow-up For: Atypical PNA Dysphagia Subjective: Tmax 100.5. Patient reports she feels much better this morning but continue to be tremulous. Overnight she was drenced in sweat that required a change of bed dressing. Her cough has improved with minimal sputum production. She is back to 1LNC Review of Systems Constitutional: Reports: see HPI. Objective Last 24 Hrs of Vital Signs/I&O Vital Signs Date Time Temp Pulse Resp B/P B/P Pulse O2 O2 Flow FiO2 Mean Ox Delivery Rate 08/28 0816 97 Nasal 1.0L Cannula 08/28 07 97.5 75 20 124/77 98 Nasal 2.0L Cannula 08/28 0000 97 Nasal 1.0L Cannula 08/27 2320 98.1 92 20 127/65 97 Nasal 2.0L Cannula 08/27 2144 99.0 08/27 2100 99.0 08/27 2000 100.0 08/27 1947 100.5 08/27 1620 97 Nasal 2.0L Cannula 08/27 1413 101.1 105 22 143/51 97 Nasal 2.0L Cannula 08/27 1147 89 Room Air Room Air Intake & Output 08/28 1600 08/28 0800 08/28 0000 Intake Total Output Total 1100 500 Balance -1100 -500 Output, Urine 1100 500 Physical Exam General Appearance: Alert, Oriented X3, Cooperative, No Acute Distress Cardiovascular: Regular Rate, Normal S1, Normal S2 Lungs: Clear to Auscultation, Normal Air Movement Abdomen: Normal Bowel Sounds, Soft, No Tenderness Current Medications: Current Medications Sig/Tiffanie Start time Last Medication Dose Route Stop Time Status Admin Acetaminophen 650 MG Q6P PRN 08/27 0645 AC 08/27 PO 1947 Acetylcysteine 2 ML BID 08/27 2100 CAN INH Acetylcysteine 2 ML BID 08/27 2100 AC 08/28 INH 0815 Albuterol Sulfate 3 ML TID 08/27 2100 CAN INH Albuterol Sulfate 3 ML EVERY 4 HRS/AWAKE 08/27 2000 AC 08/28 INH 0815 Albuterol Sulfate 3 ML EVERY 4 HRS/AWAKE 08/27 1600 DC INH Albuterol Sulfate 3 ML BID 08/25 2100 DC 08/27 INH 1147 Albuterol Sulfate 3 ML Q6P PRN 08/25 1200 AC INH Aspirin 81 MG DAILY 08/24 1641 DC 08/27 PO 1243 Azithromycin 500 MG DAILY@1400 1400 DC 08/27 Sodium Chloride 250 ML IV 1429 Benzocaine 1 NATE Q8 08/26 1400 AC 08/27 TOP 0634 Benzonatate 100 MG TID 08/27 2100 AC 08/28 PO 0957 Ceftriaxone Sodium 1,000 MG DAILY@1400 /04 1400 DC 08/27 IV 1429 Docusate Sodium 100 MG DAILY 08/28 0900 AC 08/28 PO 1006 Guaifenesin 10 ML Q6P PRN 08/25 0530 AC 08/26 PO 2123 Heparin Sodium 5,000 UNIT Q8 08/24 2200 AC (Porcine) SC Methylprednisolone 40 MG ONCE ONE 08/27 1445 DC 08/27 IV 08/27 1446 1947 Methylprednisolone 40 MG Q8 08/27 1400 DC IV Metronidazole 500 MG IQ8 08/26 1600 DC 08/27 N/A 1 UNIT IV 1243 Moxifloxacin HCl 400 MG DAILY 08/27 1500 AC 08/28 PO 0957 Ondansetron HCl 4 MG .STK-MED ONE 08/28 2023 DC IM 08/27 2024 Ondansetron HCl 4 MG Q12P PRN 08/24 1715 AC 08/27 IV 2031 Pantoprazole Sodium 40 MG BID 08/26 2100 AC 08/28 IV 0957 Patient Medication 1 ED ONE ONE 08/27 1145 DC 08/27 Teaching ED 08/27 1146 1244 Senna 187 MG AT BEDTIME 08/28 2100 AC PO Last 24 Hrs of Lab/Loy Results Last 24 Hrs of Labs/Mics: Laboratory Tests 08/28/17 0655: Anion Gap 15, Estimated GFR > 60, BUN/Creatinine Ratio 11.4, CBC w Diff MAN DIFF ORDERED, RBC 3.20 L, MCV 93.0, MCH 31.7 H, MCHC 34.1, RDW 14.1, MPV 9.9, Gran % 88.7 H, Lymphocytes % 9.9 L, Monocytes % 1.4 L, Eosinophils % 0, Basophils % 0, Absolute Granulocytes 10.0 H, Segmented Neutrophils 87 H, Band Neutrophils 6 H, Absolute Lymphocytes 1.1 L, Lymphocytes 6 L, Absolute Monocytes 0.2, Absolute Eosinophils 0, Absolute Basophils 0, Metamyelocytes 1, Platelet Estimate ADEQUATE, Anisocytosis 1+ Microbiology 08/28 2039 URINE ROUT: Legionella Antigen - COMP 08/28 2039 URINE ROUT: Streptococcus pneumoniae Antigen (M - COMP Assessment/Plan Assessment: Ms. Farooq is a 72-year-old female with past medical history of GERD,Mild nonerosive gastritis,Gastroesophageal reflux disease and paraesophageal hernia status post Dago's fundoplication (2010),Cervical disc herniations at C4-C5, C5-C6 and C6-C7 status Post cervical Arthodesis (2012), presented to the ED with chief complaints of fever #Atypical PNA #Hx of dysphagia #Acute hypoxic respiratory failure - 2/2 ?barium Plan: EGD pending possible tomorrow if pulmonary status improves Continue Moxifloxacin 400mg daily TRC/nebs PRN Acapella for mucus Chest physiotherapy Await LRC CXR consistent with RL PNA Continue Protonix for acid reflux We discontinued IV ceftriaxone, azithromycin, metronidazole Barium esophagram showed normal esophageal motility but distal esophagus irregularities Appreciate GI recommendations Appreciate ID recommendations Appreciate Pulm recommendations Chest CT showed small-mod pleural effussion but at this time we will hold off on obtaining an ECHO and diuresis because she does not appear to be fluid overload Diet -Regular DVT prophylaxis - ALPS/heparin CODE STATUS - full code Problem List: 1. Pneumonia 2. Fever Pain Ratin Pain Location: NA Pain Goal: Remain pain free Pain Plan: NA Tomorrow's Labs & Rationales: CBC, BEP
--- NOTE | 2017-08-28 10:56 | PN- Student ---
Subjective Subjective: Overnight: Patient spiked a fever of 100.5. Nursing staff reported that she has not produced a bowel movement since 08/24/17. Upon evaluation this morning, patient stated that her breathing has become easier and she slept better last night than any other night. She did wake up in a cold sweat that required a sheet change earlier this morning, but she noted the quality of the sleep was better overall. She stated that her chest congestion has been feeling "looser" although still has not been productive. Patient denied feeling feverish, shaking, chills, headache, nausea, or vomiting overnight. She reported that irritation she had felt at her right radial IV site had abated. She stated that she had not urinated today but she "typically goes only once a day". Objective Objective: Physical Exam: General: Patient was alert and oriented, speaking in full sentances and resting comfortably. Skin: Warm and dry throughout. Cardiac: Heart was regular rate and rhythm, no rubs, clicks, murmurs, or gallops. Lungs: Crackles were heard in the lower right lobe upon deep inspiration. Clear throughout otherwise. Vital Signs Date Time Temp Pulse Resp B/P B/P Pulse O2 O2 Flow FiO2 Mean Ox Delivery Rate 08/28 0816 97 Nasal 1.0L Cannula 08/28 0703 97.5 75 20 124/77 98 Nasal 2.0L Cannula 08/28 0000 97 Nasal 1.0L Cannula 08/27 2320 98.1 92 20 127/65 97 Nasal 2.0L Cannula 08/27 2144 99.0 08/27 2100 99.0 08/27 2000 100.0 08/27 1947 100.5 08/27 1620 97 Nasal 2.0L Cannula 08/27 1413 101.1 105 22 143/51 97 Nasal 2.0L Cannula 08/27 1147 89 Room Air Room Air Lab Results -Legionella and Strep Pneumo results were negative. Assessment/Plan Assessment: 72 y/o female with history of GERD continuing treatment for atypical pneumonia. Patient was initially evaluated for community acquired pneumonia given her elevated WBC and consolidation findings in the lower right lobe on CXR. After failing treatment for CA pneumonia with Ceftriaxone, Azithromycin, and later, Flagyl, atypical pneumonia was considered in the differential diagnosis and patient was started on Moxifloxacin. Despite the current crackles in the right lower lobe on deep inpsiration, and the non productive cough, and single incident of fever over night, the overall patient improvement on Moxifloxacin supports the possibility of atypical pneumonia. 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 The lack of bowel movement is likely related to her change in lifestyle and habits from being in the hospital as she has not received any medication that would cause bowel ileus. Plan: Continue with Acetylcysteine and Albuterol Sulfate treatments. Despite the spike in temperature over night, patient appears to be improving on new antibiotic and Moxifloxacin should be continued. Monitor patient for changes/ improvement. Provided oxygen saturation remains stable, continue to try to taper patient from supplemental oxygen to room air. Put patient on bowel regiment. Goal of return to baseline to allow endoscopy for evaluation of lower esophagus, per GI recommendation.
--- NOTE | 2017-08-28 10:57 | PN- Gastroenterology ---
Assessment/Plan GI Assessment/Recommendations: 1. Esophageal dysphagia, to solids. Differential diagnosis includes stricture, ring, secondary to fundoplication, dysmotility. Despite my recommendation, the esophagram was not performed with a solid-phase (a barium tablet does not show the same information). Nevertheless there was no evident aspiration, reflux/ regurgitation, or significant resistance of passage to liquid barium. There is no recurrent hiatal hernia. At this time, there is no strong evidence of aspiration as an etiology of pneumonia. 2. GERD, with frequent heartburn despite previous fundoplication. Recommendations * EGD should be performed, but will defer until pulmonary status allows. Awaiting pulmonary reevaluation today. Please make nothing by mouth after midnight. * PPI Subjective Subjective: Without clinical change Objective Vital Signs and I&Os Vital Signs Date Time Temp Pulse Resp B/P B/P Pulse O2 O2 Flow FiO2 Mean Ox Delivery Rate 08/28 0816 97 Nasal 1.0L Cannula 08/28 0800 98 Nasal 1.0L Cannula 08/28 0703 97.5 75 20 124/77 98 Nasal 2.0L Cannula 08/28 0000 97 Nasal 1.0L Cannula 08/27 2320 98.1 92 20 127/65 97 Nasal 2.0L Cannula 08/27 2144 99.0 08/27 2100 99.0 08/27 2000 100.0 08/27 1947 100.5 08/27 1620 97 Nasal 2.0L Cannula 08/27 1413 101.1 105 22 143/51 97 Nasal 2.0L Cannula 08/27 1147 89 Room Air Room Air Intake & Output 08/28 1600 08/28 0400 08/27 1600 08/27 0400 08/26 1600 08/26 0400 Intake Total 767 746 8096 685 Output Total 1100 500 300 300 0 Balance -1100 -500 444 521 7996 685 Intake, IV 150 10 850 385 Intake, Oral 560 240 930 300 Number 0 0 0 0 Bowel Movements Output, Urine 1100 500 300 300 0 Physical Exam: Abdomen soft, nondistended, nontender. Current Medications: Current Medications Sig/Tiffanie Start time Last Medication Dose Route Stop Time Status Admin Acetaminophen 650 MG Q6P PRN 08/27 0645 AC 08/27 PO 1947 Acetylcysteine 2 ML BID 08/27 2100 CAN INH Acetylcysteine 2 ML BID 08/27 2100 AC 06/07 INH 0815 Albuterol Sulfate 3 ML TID 08/27 2100 CAN INH Albuterol Sulfate 3 ML EVERY 4 HRS/AWAKE 08/27 2000 AC 08/28 INH 0815 Albuterol Sulfate 3 ML EVERY 4 HRS/AWAKE 08/27 1600 DC INH Albuterol Sulfate 3 ML BID 08/25 2100 DC 08/27 INH 1147 Albuterol Sulfate 3 ML Q6P PRN 08/25 1200 AC INH Aspirin 81 MG DAILY 08/24 1641 DC 08/27 PO 1243 Azithromycin 500 MG DAILY@1400 / 1400 DC 08/27 Sodium Chloride 250 ML IV 1429 Benzocaine 1 NATE Q8 08/26 1400 AC 08/27 TOP 0634 Benzonatate 100 MG TID 08/27 2100 AC 08/28 PO 0957 Ceftriaxone Sodium 1,000 MG DAILY@1400 / 1400 DC 08/27 IV 1429 Docusate Sodium 100 MG DAILY 08/28 0900 AC 08/28 PO 1006 Guaifenesin 10 ML Q6P PRN 08/25 0530 AC 08/26 PO 2123 Heparin Sodium 5,000 UNIT Q8 08/24 2200 AC (Porcine) SC Methylprednisolone 40 MG ONCE ONE 08/27 1445 DC 08/27 IV 08/27 1446 1947 Methylprednisolone 40 MG Q8 08/27 1400 DC IV Metronidazole 500 MG IQ8 08/26 1600 DC 08/27 N/A 1 UNIT IV 1243 Moxifloxacin HCl 400 MG DAILY 08/27 1500 AC 08/28 PO 0957 Ondansetron HCl 4 MG .STK-MED ONE 08/28 2023 DC IM 08/27 2024 Ondansetron HCl 4 MG Q12P PRN 08/24 1715 AC 08/27 IV 2031 Pantoprazole Sodium 40 MG BID 08/26 2100 AC 08/28 IV 0957 Patient Medication 1 ED ONE ONE 08/27 1145 DC 08/27 Teaching ED 08/27 1146 1244 Senna 187 MG AT BEDTIME 08/28 2100 AC PO Results Pertinent Lab Results: Laboratory Tests 08/28 08/27 0655 0710 Chemistry Sodium (137 - 145 mmol/L) 148 H 143 Potassium (3.5 - 5.1 mmol/L) 3.9 3.3 L Chloride (98 - 107 mmol/L) 111 H 111 H Carbon Dioxide (22 - 30 mmol/L) 21 L 22 Anion Gap (5 - 16) 15 10 BUN (7 - 17 mg/dL) 8 8 Creatinine (0.5 - 1.0 mg/dL) 0.7 0.8 Estimated GFR (>60 ml/min) > 60 > 60 BUN/Creatinine Ratio (7 - 25 %) 11.4 10.0 Hematology CBC w Diff MAN DIFF ORDERED NO MAN DIFF REQ WBC (4.8 - 10.8 /CUMM) 11.3 H 13.2 H RBC (4.20 - 5.40 /CUMM) 3.20 L 3.01 L Hgb (12.0 - 16.0 G/DL) 10.1 L 9.5 L Hct (37 - 47 %) 29.8 L 27.8 L MCV (81.0 - 99.0 FL) 93.0 92.7 MCH (27.0 - 31.0 PG) 31.7 H 31.8 H MCHC (33.0 - 37.0 G/DL) 34.1 34.3 RDW (11.5 - 14.5 %) 14.1 14.0 Plt Count (130 - 400 /CUMM) 264 236 MPV (7.4 - 10.4 FL) 9.9 10.3 Gran % (42.2 - 75.2 %) 88.7 H 77.1 H Lymphocytes % (20.5 - 51.1 %) 9.9 L 16.9 L Monocytes % (1.7 - 9.3 %) 1.4 L 5.5 Eosinophils % (0 - 5 %) 0 0.2 Basophils % (0.0 - 2.0 %) 0 0.3 Absolute Granulocytes (1.4 - 6.5 /CUMM) 10.0 H 10.2 H Segmented Neutrophils (42.2 - 75.2 %) 87 H Band Neutrophils (0.0 - 5.0 %) 6 H Absolute Lymphocytes (1.2 - 3.4 /CUMM) 1.1 L 2.2 Lymphocytes (20.5 - 51.1 %) 6 L Absolute Monocytes (0.10 - 0.60 /CUMM) 0.2 0.7 H Absolute Eosinophils (0.0 - 0.7 /CUMM) 0 0 Absolute Basophils (0.0 - 0.2 /CUMM) 0 0 Metamyelocytes (0.0 - 1.0 %) 1 Platelet Estimate (ADEQUATE) ADEQUATE Anisocytosis 1+ 06/05 0710 Chemistry Sodium (137 - 145 mmol/L) 144 Potassium (3.5 - 5.1 mmol/L) 3.9 Chloride (98 - 107 mmol/L) 112 H Carbon Dioxide (22 - 30 mmol/L) 20 L Anion Gap (5 - 16) 11 BUN (7 - 17 mg/dL) 11 Creatinine (0.5 - 1.0 mg/dL) 0.8 Estimated GFR (>60 ml/min) > 60 BUN/Creatinine Ratio (7 - 25 %) 13.8 Hematology CBC w Diff NO MAN DIFF REQ WBC (4.8 - 10.8 /CUMM) 13.1 H RBC (4.20 - 5.40 /CUMM) 3.16 L Hgb (12.0 - 16.0 G/DL) 10.0 L Hct (37 - 47 %) 29.5 L MCV (81.0 - 99.0 FL) 93.3 MCH (27.0 - 31.0 PG) 31.8 H MCHC (33.0 - 37.0 G/DL) 34.0 RDW (11.5 - 14.5 %) 13.4 Plt Count (130 - 400 /CUMM) 207 MPV (7.4 - 10.4 FL) 10.0 Gran % (42.2 - 75.2 %) 81.2 H Lymphocytes % (20.5 - 51.1 %) 11.4 L Monocytes % (1.7 - 9.3 %) 7.0 Eosinophils % (0 - 5 %) 0.1 Basophils % (0.0 - 2.0 %) 0.3 Absolute Granulocytes (1.4 - 6.5 /CUMM) 10.7 H Absolute Lymphocytes (1.2 - 3.4 /CUMM) 1.5 Absolute Monocytes (0.10 - 0.60 /CUMM) 0.9 H Absolute Eosinophils (0.0 - 0.7 /CUMM) 0 Absolute Basophils (0.0 - 0.2 /CUMM) 0
--- NOTE | 2017-08-28 12:52 | PN- Infect Dx ---
Subjective Subjective: T-max 101.1. She feels improved today with no further headache and decreased shortness of breath. Objective Last 24 Hrs of Vital Signs/I&O Vital Signs Date Time Temp Pulse Resp B/P B/P Pulse O2 O2 Flow FiO2 Mean Ox Delivery Rate 08/28 1111 64 96 Nasal 0.5L Cannula 08/28 0816 97 Nasal 1.0L Cannula 08/28 0800 98 Nasal 1.0L Cannula 08/28 0703 97.5 75 20 124/77 98 Nasal 2.0L Cannula 08/28 0000 97 Nasal 1.0L Cannula 08/27 2320 98.1 92 20 127/65 97 Nasal 2.0L Cannula 08/27 2144 99.0 08/27 2100 99.0 08/27 2000 100.0 08/27 1947 100.5 08/27 1620 97 Nasal 2.0L Cannula 08/27 1413 101.1 105 22 143/51 97 Nasal 2.0L Cannula Intake & Output 08/28 1600 08/28 0800 08/28 0000 Intake Total Output Total 1100 500 Balance -1100 -500 Output, Urine 1100 500 Physical Exam Other Physical Findings: She appears more comfortable in no acute distress Lungs crackles at the right base Heart regular rhythm with no murmur Extremities no cyanosis, clubbing or edema Results Last 24 Hours of Lab Results: Laboratory Tests 08/28 0655 Chemistry Sodium (137 - 145 mmol/L) 148 H Potassium (3.5 - 5.1 mmol/L) 3.9 Chloride (98 - 107 mmol/L) 111 H Carbon Dioxide (22 - 30 mmol/L) 21 L Anion Gap (5 - 16) 15 BUN (7 - 17 mg/dL) 8 Creatinine (0.5 - 1.0 mg/dL) 0.7 Estimated GFR (>60 ml/min) > 60 BUN/Creatinine Ratio (7 - 25 %) 11.4 Hematology CBC w Diff MAN DIFF ORDERED WBC (4.8 - 10.8 /CUMM) 11.3 H RBC (4.20 - 5.40 /CUMM) 3.20 L Hgb (12.0 - 16.0 G/DL) 10.1 L Hct (37 - 47 %) 29.8 L MCV (81.0 - 99.0 FL) 93.0 MCH (27.0 - 31.0 PG) 31.7 H MCHC (33.0 - 37.0 G/DL) 34.1 RDW (11.5 - 14.5 %) 14.1 Plt Count (130 - 400 /CUMM) 264 MPV (7.4 - 10.4 FL) 9.9 Gran % (42.2 - 75.2 %) 88.7 H Lymphocytes % (20.5 - 51.1 %) 9.9 L Monocytes % (1.7 - 9.3 %) 1.4 L Eosinophils % (0 - 5 %) 0 Basophils % (0.0 - 2.0 %) 0 Absolute Granulocytes (1.4 - 6.5 /CUMM) 10.0 H Segmented Neutrophils (42.2 - 75.2 %) 87 H Band Neutrophils (0.0 - 5.0 %) 6 H Absolute Lymphocytes (1.2 - 3.4 /CUMM) 1.1 L Lymphocytes (20.5 - 51.1 %) 6 L Absolute Monocytes (0.10 - 0.60 /CUMM) 0.2 Absolute Eosinophils (0.0 - 0.7 /CUMM) 0 Absolute Basophils (0.0 - 0.2 /CUMM) 0 Metamyelocytes (0.0 - 1.0 %) 1 Platelet Estimate (ADEQUATE) ADEQUATE Anisocytosis 1+ Last 24 Hours of Loy Results: Urine strep pneumo antigen and Legionella antigen August 27 negative Blood cultures 2 August 24 negative Assessment/Plan ID Impression: Improved, with apparent defervescence overnight (status post 1 dose of Solumedrol last evening) and with her white blood cell count decreased now on Moxifloxacin for a right lower lobe community acquired pneumonia, possibly atypical in origin. She is tentatively scheduled for an endoscopy in the a.m. to further evaluate her complaints of dysphagia. Suggestion: 1. Await possible endoscopy in the a.m. 2. Continue Moxifloxacin
[2017-08-28 13:22] VITALS: BP 126/63
--- NOTE | 2017-08-28 14:08 | PN- Pulmonary ---
Subjective HPI/Critical Care Issues: T-max 101.1. She feels improved today with no further headache and decreased shortness of breath. Noted to have a humidifier next to her and she does say that she uses many of the humidifiers at home for aroma rx Objective Current Medications: Current Medications Sig/Tiffanie Start time Last Medication Dose Route Stop Time Status Admin Acetaminophen 650 MG Q6P PRN 08/27 0645 AC 08/27 PO 1947 Acetylcysteine 2 ML BID 08/27 2100 CAN INH Acetylcysteine 2 ML BID 08/27 2100 AC 08/28 INH 0815 Albuterol Sulfate 3 ML TID 08/27 2100 CAN INH Albuterol Sulfate 3 ML EVERY 4 HRS/AWAKE 08/27 2000 AC 08/28 INH 1150 Albuterol Sulfate 3 ML EVERY 4 HRS/AWAKE 08/27 1600 DC INH Albuterol Sulfate 3 ML BID 08/25 2100 DC 08/27 INH 1147 Albuterol Sulfate 3 ML Q6P PRN 08/25 1200 AC INH Aspirin 81 MG DAILY 08/24 1641 DC 08/27 PO 1243 Azithromycin 500 MG DAILY@1400 / 1400 DC 08/27 Sodium Chloride 250 ML IV 1429 Benzocaine 1 NATE Q8 08/26 1400 AC 08/28 TOP 1332 Benzonatate 100 MG TID 08/27 2100 AC 08/28 PO 1332 Ceftriaxone Sodium 1,000 MG DAILY@1400 /04 1400 DC 08/27 IV 1429 Docusate Sodium 100 MG DAILY 08/28 0900 AC 08/28 PO 1006 Guaifenesin 10 ML Q6P PRN 08/25 0530 AC 08/26 PO 2123 Heparin Sodium 5,000 UNIT Q8 08/24 2200 AC (Porcine) SC Methylprednisolone 40 MG ONCE ONE 08/27 1445 DC 08/27 IV 08/27 1446 1947 Methylprednisolone 40 MG Q8 08/27 1400 DC IV Metronidazole 500 MG IQ8 08/26 1600 DC 08/27 N/A 1 UNIT IV 1243 Moxifloxacin HCl 400 MG DAILY 08/27 1500 AC 08/28 PO 0957 Ondansetron HCl 4 MG .STK-MED ONE 08/28 2023 DC IM 08/27 2024 Ondansetron HCl 4 MG Q12P PRN 08/24 1715 AC 08/27 IV 2031 Pantoprazole Sodium 40 MG BID 08/26 2100 AC 06/07 IV 0957 Senna 187 MG AT BEDTIME 08/28 2100 AC PO Vital Signs & I&O Last 24 Hrs of Vitals and I&O: Vital Signs Date Time Temp Pulse Resp B/P B/P Pulse O2 O2 Flow FiO2 Mean Ox Delivery Rate 08/28 1322 98.0 87 19 126/63 96 Nasal 0.5L Cannula 08/28 1111 64 96 Nasal 0.5L Cannula 08/28 0816 97 Nasal 1.0L Cannula 08/28 0800 98 Nasal 1.0L Cannula 08/28 0703 97.5 75 20 124/77 98 Nasal 2.0L Cannula 08/28 0000 97 Nasal 1.0L Cannula 08/27 2320 98.1 92 20 127/65 97 Nasal 2.0L Cannula 08/27 2144 99.0 08/27 2100 99.0 08/27 2000 100.0 08/27 1947 100.5 08/27 1620 97 Nasal 2.0L Cannula 08/27 1413 101.1 105 22 143/51 97 Nasal 2.0L Cannula Intake & Output 08/28 1600 08/28 0800 08/28 0000 Intake Total Output Total 1100 500 Balance -1100 -500 Output, Urine 1100 500 Laboratory Tests 08/28 08/27 0655 0710 Chemistry Sodium (137 - 145 mmol/L) 148 H 143 Potassium (3.5 - 5.1 mmol/L) 3.9 3.3 L Chloride (98 - 107 mmol/L) 111 H 111 H Carbon Dioxide (22 - 30 mmol/L) 21 L 22 Anion Gap (5 - 16) 15 10 BUN (7 - 17 mg/dL) 8 8 Creatinine (0.5 - 1.0 mg/dL) 0.7 0.8 Estimated GFR (>60 ml/min) > 60 > 60 BUN/Creatinine Ratio (7 - 25 %) 11.4 10.0 Hematology CBC w Diff MAN DIFF ORDERED NO MAN DIFF REQ WBC (4.8 - 10.8 /CUMM) 11.3 H 13.2 H RBC (4.20 - 5.40 /CUMM) 3.20 L 3.01 L Hgb (12.0 - 16.0 G/DL) 10.1 L 9.5 L Hct (37 - 47 %) 29.8 L 27.8 L MCV (81.0 - 99.0 FL) 93.0 92.7 MCH (27.0 - 31.0 PG) 31.7 H 31.8 H MCHC (33.0 - 37.0 G/DL) 34.1 34.3 RDW (11.5 - 14.5 %) 14.1 14.0 Plt Count (130 - 400 /CUMM) 264 236 MPV (7.4 - 10.4 FL) 9.9 10.3 Gran % (42.2 - 75.2 %) 88.7 H 77.1 H Lymphocytes % (20.5 - 51.1 %) 9.9 L 16.9 L Monocytes % (1.7 - 9.3 %) 1.4 L 5.5 Eosinophils % (0 - 5 %) 0 0.2 Basophils % (0.0 - 2.0 %) 0 0.3 Absolute Granulocytes (1.4 - 6.5 /CUMM) 10.0 H 10.2 H Segmented Neutrophils (42.2 - 75.2 %) 87 H Band Neutrophils (0.0 - 5.0 %) 6 H Absolute Lymphocytes (1.2 - 3.4 /CUMM) 1.1 L 2.2 Lymphocytes (20.5 - 51.1 %) 6 L Absolute Monocytes (0.10 - 0.60 /CUMM) 0.2 0.7 H Absolute Eosinophils (0.0 - 0.7 /CUMM) 0 0 Absolute Basophils (0.0 - 0.2 /CUMM) 0 0 Metamyelocytes (0.0 - 1.0 %) 1 Platelet Estimate (ADEQUATE) ADEQUATE Anisocytosis 1+ Microbiology Date/Time Procedure - Status Source Growth 08/28 2039 Legionella Antigen - COMP URINE ROUT 08/28 2039 Streptococcus pneumoniae Antigen (M - COMP URINE ROUT Impression/Plan Impression/Plan Impression/Plan: CT IMPRESSION: 1. Patchy airspace consolidation and groundglass opacification in the right lower lobe dependently may correspond to pneumonia or aspiration. The more central bronchi appear clear, making aspiration slightly less likely. No evidence of barium aspiration. 2. Small bilateral pleural effusions. DICTATED BY: Axel Hung MD DATE/TIME DICTATED:08/27/171347 IMPRESSION 72 y/o F with pmh sig for GERD,Mild nonerosive gastritis,Gastroesophageal reflux disease and paraesophageal hernia status post Dago's fundoplication (2010), Cervical disc herniations at C4-C5, C5-C6 and C6-C7 status Post cervical Arthodesis (2013) admitted with generalized weakness, fever and vomiting possible aspiration pna. ISsues * Right lower lobe pneumonia with a small parapneumonic effusion ongoing fever. His may be related to probable aspiration due to gerd vs humidifier induced atypical pna including leigenella etc * Very small parapneumonic effusion which needs to be followed * Previous GERD, recent difficulty in swallowing RECOMMENDATION COnt abx no further steroids Induce sputum for leigenella pcr Keep the head of bed at 45 Mechanical soft diet Hold aspirin for now Rpt rt lateral decub to see if her effusions are worse and if so will consider thora in am i DId discuss with the patient not to use any portable humidifiers for now and in the future if she were to use it she needs to have all her portable humidifier drained daily with removal of all slime, and sterilized frequently with either chlorine bleach or hydrogen peroxide. Change nebulizer to DuoNeb 3 times a day prn Proton pump inhibitor by mouth or IV twice a day Continue benzonatate We will follow closely Did leave a message with GI regarding Endoscopy and she can proceed in am
--- NOTE | 2017-08-28 15:30 | Patient Discharge Instructions ---
Discharge Instructions General Discharge Information You were seen/treated for: Atypical pneumonia Difficulty swallowing You had these procedures: EGD Special Instructions: Follow up with GI-Dr. Dallas within 1 week of discharge Please have all her portable humidifier drained daily with removal of all slime, and sterilized frequently Follow up with the Psychology Associate-Dr. Bah within 1 week of discharge Please follow up with your PCP within one week. Diet Continue normal diet: Yes Activity Full Activity/No Limits: Yes Acute Coronary Syndrome Inclusion Criteria At DC or during hospital stay patient has or had the following: ACS DIAGNOSIS No Discharge Core Measures Meds if any: Prescribed or Continued at Discharge Meds if any: NOT Prescribed or Continued at Discharge Congestive Heart Failure Inclusion Criteria At DC or during hospital stay patient has or had the following: CHF DIAGNOSIS No Discharge Core Measures Meds if any: Prescribed or Continued at Discharge Meds if any: NOT Prescribed or Continued at Discharge Cerebrovascular accident Inclusion Criteria At DC or during hospital stay patient has or had the following: CVA/TIA Diagnosis No Discharge Core Measures Meds if any: Prescribed or Continued at Discharge Meds if any: NOT Prescribed or Continued at Discharge Venous thromboembolism Inclusion Criteria VTE Diagnosis No VTE Type NONE VTE Confirmed by (Test) NONE Discharge Core Measures - Per Current guidelines, there needs to be overlap - treatment for the first 5 days of Warfarin therapy. - If discharged on Warfarin prior to 5 days of - overlap therapy, the patient will need to be - assessed for post discharge needs including - *Post discharge parental anticoagulation - *Warfarin and/or parental anticoagulation education - *Follow up date to check INR post discharge At least 5 days overlap therapy as Inpatient No Meds if any: Prescribed or Continued at Discharge Note: Overlap Therapy is Warfarin and Anticoagulant Meds if any: NOT Prescribed or Continued at Discharge
--- NOTE | 2017-08-28 20:10 | RADIOLOGY REPORT ---
EXAMINATION: XR CHEST CLINICAL INFORMATION: Pleural effusion. COMPARISON: CT scan of the chest dated 08/27/2017. Chest x-ray dated 08/25/2017. TECHNIQUE: AP semierect and lateral views of the chest were obtained. FINDINGS: The cardiomediastinal silhouette is within normal limits in size. There are small bilateral pleural effusions, unchanged compared to recent CT scan. Associated patchy consolidation in the right lower lobe is also unchanged. Mild linear subsegmental atelectasis in the left lower lobe is noted. Lungs are otherwise unremarkable. Lower cervical spine anterior disc fusion hardware is seen. Bony structures are otherwise unremarkable. Barium contrast is seen outlining some of the bowel loops in the upper abdomen. IMPRESSION: Small bilateral pleural effusions, slightly larger on the right side than the left with associated right lower lobe pneumonia and left lower lobe subsegmental atelectasis. Compared to recent CT scan, no interval changes seen.
[2017-08-28 23:03] VITALS: BP 121/59
[2017-08-29 06:53] VITALS: BP 129/73
--- NOTE | 2017-08-29 07:05 | PN- Housestaff ---
Subjective Follow-up For: Atypical PNA Dysphagia Subjective: Patient reports her breathing improved overnight. She is currently satting well on room air and no longer requires oxygen. Review of Systems Constitutional: Reports: see HPI. Objective Last 24 Hrs of Vital Signs/I&O Vital Signs Date Time Temp Pulse Resp B/P B/P Pulse O2 O2 Flow FiO2 Mean Ox Delivery Rate 08/29 1645 93 Room Air 08/29 0829 96 Nasal 0.5L Cannula 08/29 0800 97 Room Air 08/29 0653 98.0 71 20 129/73 96 Nasal 0.5L Cannula 08/29 0000 Nasal 0.5L Cannula 08/28 2303 97.9 75 20 121/59 98 Nasal 0.5L Cannula Intake & Output 08/29 1600 08/29 0800 08/29 0000 Intake Total 430 Output Total 200 Balance 230 Intake, IV 30 Intake, Oral 400 Output, Urine 200 Patient 168 lb Weight Physical Exam General Appearance: Alert, Oriented X3, Cooperative, No Acute Distress Cardiovascular: Regular Rate, Normal S1, Normal S2 Lungs: Clear to Auscultation, Normal Air Movement Abdomen: Normal Bowel Sounds, Soft, No Tenderness Current Medications: Current Medications Sig/Tiffanie Start time Last Medication Dose Route Stop Time Status Admin Acetaminophen 650 MG Q6P PRN 08/27 0645 AC 08/27 PO 1947 Acetylcysteine 2 ML BID 08/27 2100 DC 08/29 INH 1645 Albuterol Sulfate 3 ML EVERY 4 HRS/AWAKE 08/27 2000 AC 08/29 INH 1645 Albuterol Sulfate 3 ML Q6P PRN / 1200 AC INH Benzocaine 1 NATE Q8 08/26 1400 AC 08/28 TOP 1332 Benzonatate 100 MG TID 08/27 2100 AC 08/29 PO 1429 Chlorhexidine 1 GM .STK-MED ONE 08/29 1313 DC Gluconate TOP 08/29 1314 Docusate Sodium 100 MG DAILY 08/28 0900 AC 08/29 PO 1429 Guaifenesin 10 ML .STK-MED ONE 08/29 0010 DC PO 08/29 0011 Guaifenesin 10 ML Q6P PRN 08/25 0530 AC 08/29 PO 0014 Heparin Sodium 5,000 UNIT Q8 08/24 2200 AC (Porcine) SC Moxifloxacin HCl 400 MG DAILY 08/27 1500 AC 08/29 PO 1431 Omeprazole 40 MG BID 08/29 2099 AC PO Ondansetron HCl 4 MG Q12P PRN 08/24 1715 AC 08/27 IV 203 Pantoprazole Sodium 40 MG BID 08/26 2100 DC 08/29 IV 1428 Polyethylene Glycol 17 GM DAILY 08/29 0900 AC 08/29 PO 1428 Senna 187 MG AT BEDTIME 08/28 2099 AC 08/28 PO 2034 Last 24 Hrs of Lab/Loy Results Last 24 Hrs of Labs/Mics: Laboratory Tests 08/29/17 0620: Anion Gap 15, Estimated GFR > 60, BUN/Creatinine Ratio 18.8, CBC w Diff NO MAN DIFF REQ, RBC 3.17 L, MCV 93.9, MCH 31.8 H, MCHC 33.9, RDW 14.1, MPV 9.7, Gran % 84.5 H, Lymphocytes % 11.8 L, Monocytes % 3.7, Eosinophils % 0, Basophils % 0, Absolute Granulocytes 14.0 H, Absolute Lymphocytes 2.0, Absolute Monocytes 0.6, Absolute Eosinophils 0, Absolute Basophils 0 Microbiology 08/29 1600 LOWER RESP: Respiratory Culture - RECD 08/29 1600 LOWER RESP: Gram Stain - RECD Assessment/Plan Assessment: Ms. Farooq is a 72-year-old female with past medical history of GERD,Mild nonerosive gastritis,Gastroesophageal reflux disease and paraesophageal hernia status post Dago's fundoplication (2010),Cervical disc herniations at C4-C5, C5-C6 and C6-C7 status Post cervical Arthodesis (2012), presented to the ED with chief complaints of fever #Atypical PNA #Hx of dysphagia #Acute hypoxic respiratory failure - 2/2 ?barium Plan: We will monitor sodium EGD today showed nonerosive distal GERD with intact fundoplication Continue Moxifloxacin 400mg daily TRC/nebs PRN Acapella for mucus Chest physiotherapy PRN Await LRC CXR consistent with RL PNA Continue Protonix for acid reflux We discontinued IV ceftriaxone, azithromycin, metronidazole Barium esophagram showed normal esophageal motility but distal esophagus irregularities Appreciate GI recommendations Appreciate ID recommendations Appreciate Pulm recommendations Chest CT showed small-mod pleural effussion but at this time we will hold off on obtaining an ECHO and diuresis because she does not appear to be fluid overload Diet -Regular DVT prophylaxis - ALPS/heparin CODE STATUS - full code Problem List: 1. GERD (gastroesophageal reflux disease) 2. Intermittent dysphagia 3. Pneumonia Pain Ratin Pain Location: NA Pain Goal: Remain pain free Pain Plan: NA Tomorrow's Labs & Rationales: MIHAELA BEP
[2017-08-29 07:33] LABS: ABSOLUTE BASOPHIL COUNT 0 /CUMM (0.0-0.2); ABSOLUTE EOSINOPHIL COUNT 0 /CUMM (0.0-0.7); ABSOLUTE MONOCYTE COUNT 0.6 /CUMM (0.10-0.60); BASOPHIL % 0 % (0.0-2.0); EOSINOPHIL % 0 % (0-5); HEMATOCRIT 29.8 % (37-47); MEAN CORPUSCULAR HGB 31.8 PG (27.0-31.0); MEAN CORPUSCULAR HGB CONC 33.9 G/DL (33.0-37.0); MEAN CORPUSCULAR VOLUME 93.9 FL (81.0-99.0); MEAN PLATELET VOLUME 9.7 FL (7.4-10.4); PLATELET COUNT 333 /CUMM (130-400); RBC DISTRIBUTION WIDTH 14.1 % (11.5-14.5); RED BLOOD CELL CT 3.17 /CUMM (4.20-5.40); WHITE BLOOD CELL COUNT 16.5 /CUMM (4.8-10.8)
--- NOTE | 2017-08-29 08:17 | PN- Gastroenterology ---
Assessment/Plan GI Assessment/Recommendations: (I assumed the inpt GI service from Dr. Hema Dallas 08/29/17. The pt was seen & examined. She is normally followed by Dr. Gamboa for GI as an outpt. Dr. Hema Dallas's inpt GI consult of 08/26/17 was reviewed, along with medicine, ID, & pulmonary notes). 72 y/o female, chronic GERD, admitted to 08/24/17, with a 4 day history of fever, chills, dry cough, headache, myalgias, shortness of breath and weakness, with 3 falls on the day prior to admission. On admission, she was febrile to 103.5. Admission labs: WBC 16.5 (left shift), H/H 11.8/34.7, nl MCV, nl RDW, PLT 243, BUN/Cr 16/1.2, GFR 44 (resolved), nl lytes, nl LFTs (xc alb 3.4, glob 3.1),nl lipase, nl lactate, trop 0.02, INR 1.34, U/A with pyuris & bacteruria. CXR- RLL PNA. CT of the head- negative for any acute process. She was begun on Ceftriaxone & Azithromycin, with Flagyl added 08/26/17, because of a persistent fever. She was ssen by ID & pulmonary. 08/27/17: CT of the chest- patchy airspace consolidation & ground glass opacification in the RLL with small bilateral pleural effusions. Ceftriaxone, Azithromycin, & Flagyl were D/C by ID 08/27/17 & changed to Moxifloxacin 400 mg po daily. She had been on a short course of IV Solu-Medrol. 08/24/17: BC x 2- neg 08/24/17: UC- neg 08/27/17: Strep Pneumo urinary Ag- neg; Legionella urinary Ag- neg. The pt has a chronic hx GERD x yrs, on outpt PPI intermittently in the past, but has used PPI fairly continuosly over the past couple of years, most recently on outpt Nexium 20 mg daily. She claimed she has had intermittent dysphagia to dry solids since her 07/31/10: Dago fundoplication with mesh for GERD & paraesophageal hernia, although she does tolerate solids for the most part. She claimed this improves after drinking hot liquids. She denied any dysphagia to pills or liquids. When the sticking does occur, she pointed to the midsternal area, as to the region of sticking. There is no hx of transfer dysphagia, head & neck Ca or RT, or thyroid disease. She did have C-spine surgery for multiple HD & radiculopathy. She denied any hematemesis or early satiety. She has never had a food impaction to the point where she needed it to be retrieved endoscopically. She occasionally has to regurgitate up solids. She was tolerating a mechanical soft diet as an inpt, with aspiration precautions. *She was cleared by pulmonary for EGD on 08/28/17. She has been NPO since 11:59 p.m. 08/28/17 for EGD. 08/27/17: BS (*although limited w/o barium soaked bread)- 1. The patient initiated the swallowing mechanism normally without evidence of aspiration. 2. There is normal esophageal motility. Serpiginous filling defects in the distal esophagus may be consistent with prominent venous structures or luminal irregularity. Endoscopy could be considered for further evaluation. 3. No gastroesophageal reflux or hiatal hernia are demonstrated. 4. No holdup of contrast at GEJ. Minimal holdup of barium tablet at GEJ. 5. Post 4 level ACDF between C4 and C7. The hardware appears intact and the intervertebral disc grafts appear well integrated. 08/28/17: XRY-DECUBITUS FILMS- 1. No significant change in size of small right-sided pleural effusion compared to 08/27/2017. Slight increase in size of the pleural effusion compared to 08/25/2017. 2. No change in right lower lobe infiltrate. 3. No significant change in trace left-sided pleural effusion. 08/28/17: XRY-CHEST XRAY, TWO VIEWS- Small bilateral pleural effusions, slightly larger on the right side than the left with associated right lower lobe pneumonia and left lower lobe subsegmental atelectasis. Compared to recent CT scan, no interval changes seen. *Prior GI workup- 06/29/10: EGD to D2/colonoscopy to cecum per Dr. Gamboa (for dyspepsia, GERD, screening)- Grade II-III erosive esophagitis, Z line at 31 cm, 4 cm HH, bxs GEJ- mixed esophageal and glandular mucosa with surface erosion & underlying fibrosis with chronic inflammation, negative IM, no definite malignancy, random bxs gastric anrum- mild CAG, negative IM, negative H. pylori. left diverticulosis coli, small int hemorrhoids, mild proctitis (probably from prep) with rectal bxs: benign hyperplastic change (a repeat colonoscopy was advised for 10 yrs, namely 06/2020, as there was no pertinent FHx). 07/04/10: UGI series- Spontaneous gastroesophageal reflux to level above the clavicles. 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 Slight irregularity of the mucosal pattern in the distal esophagus. 07/31/10: *Laparoscopic Dago fundoplication with mesh per Dr. Castorena for GERD & paraesophageal hernia. 01/22/12: EGD to D2 for abdominal pain per Dr. Gamboa- 1. Intact Dago fundoplication w/o HH, with possible short-segment Cervantes's esophagus vs non-erosive reflux disease, Z line at 34 cm, bxs GEJ at 34 cm: gastric mucosa with moderate chronic & mild acute inflammation and hyperplastic epithelial change, squamous mucosa with surface erosion with underlying granulation tissue and acute & chronic inflammation, focal moderate eosinophilic infiltration (5-10 eos/HPF), negative viral, negative fungal, negative IM, negative dysplasia, negative Ca. 2. Mild nonerosive gastritis, bxs: mild CAG, HP-neg. 3. Normal small bowel folds, bxs: neg. Her previous surgeries, aside from the : Dago fundoplication, include 01/2001: CCKY, drainage of ruptures ovarian cyst, AP, tubal ligation, & repair of multiple cervical HD (C4-C5, C5-C6, & C6-C7, s/p cervical arthodesis 11/21/12 , for cervical radiculopathy, with [employer] plate. She does not smoke or consume EtOH. *As of 08/29/17, the pt was hemodynamically stable & afebrile, on Moxifloxacin, with O2 sat 0.5L nc- 96%. She remained NPO for EGD. She had a mild dry cough. There was no wheezing. She denied any CP, increased SOB, or abdominal pain. Her cultures remained negative. Her GERD was relatively stable on Protonix 40 mg IV BID. The patient appeared to be clinically improving and was now afebrile on Moxifloxacin for RLL CAP, possibly atypical in nature. Differential diagnosis includes stricture, ring, secondary effects of fundoplication, esophageal dysmotility (although expect more difficulties with liquids with the latter), r/ o EOE. The intermittent dysphagia to dry solids has been since the 07/31/10: Nisssen fundoplication with mesh for tx of GERD & paraesophageal hernia. *Her : BS was somewhat limited, without swallowing barium soaked bread. *SUGGEST: NPO for EGD later today, possibly with esophageal bxs & dilatation. Informed consent for EGD was obtained from the patient, after careful aspiration of the risks & benefits. Continue IV Protonix 40 mg BID for now. For probable eventual resumption of mechanical soft diet post EGD, with aspiration precautions. Moxifloxacin per ID. Supplemental O2 prn. Further GI recommendations to follow, post EGD. The patient is to follow-up with Dr. Gamboa after D/C, who will resume her outpt GI care. Follow up with ID, pulmonary, & hospitalist teams, regarding other issues. Problem List: 1. Intermittent dysphagia 2. GERD (gastroesophageal reflux disease) 3. Pneumonia Subjective Subjective: *As of 08/29/17, the pt was hemodynamically stable & afebrile, on Moxifloxacin, with O2 sat 0.5L nc- 96%. She remained NPO for EGD. She had a mild dry cough. There was no wheezing. She denied any CP, increased SOB, or abdominal pain. Her cultures remained negative. Her GERD was relatively stable on Protonix 40 mg IV BID. Review of Systems: Full 14 point ROS otherwise noncontributory, and as above. Review of Systems Constitutional: Reports: weakness. Denies: chills, diaphoresis, fever, malaise, unexplained weight loss. EENTM: Denies: blurred vision, double vision, visual changes, eye pain, eye drainage, eye tearing, icterus, ear discharge, ear pain, ear redness, hearing changes, nasal congestion, epistaxis, nasal pain, throat pain, throat swelling, mouth pain, tooth pain. Cardiovascular: Denies: chest pain, edema, orthopena, palpitations, peripheral edema, syncope. Respiratory: Reports: cough (mild dry), short of breath (improved). Denies: hemoptysis, orthopnea, sputum production, stridor, wheezing. Gastrointestinal: Denies: no symptoms (int dysph solids/GERD), abdominal pain, bloating, constipation, diarrhea, distention, bowel incontinence, melena, nausea, bloody stool, changes in stool, vomiting, steatorrhea. Genitourinary: Denies: discharge, dysuria, frequency, hematuria, hesitation, nocturia, pain, urgency. Musculoskeletal: Denies: back pain, gout, joint pain, joint swelling, muscle pain, muscle stiffness, neck pain. Skin: Denies: cysts, change in skin color, change in hair/nails, dryness, erythema, jaundice, lesions, lymphangitis, lumps, moles, rash. Neurological/Psychological: Denies: anxiety, ataxia, cognitive dysfunction, confusion, depressed, dementia, emotional problems, headache, numbness, paresthesia, pre-existing deficit, petit mal seizures, tingling, tremors, tonic-clonic seizures, unable to move lower ext , unable to move upper ext, weakness. Hematologic/Endocrine: Denies: bruising, bleeding, polyuria, polydipsia. Immunologic/Allergic: Denies: splenectomy, HIV/AIDS, lymphadenopathy. All Other Systems: Reviewed and Negative Objective Vital Signs and I&Os Vital Signs Date Time Temp Pulse Resp B/P B/P Pulse O2 O2 Flow FiO2 Mean Ox Delivery Rate 08/29 0829 96 Nasal 0.5L Cannula 08/29 0653 98.0 71 20 129/73 96 Nasal 0.5L Cannula 08/29 0000 Nasal 0.5L Cannula 08/28 2303 97.9 75 20 121/59 98 Nasal 0.5L Cannula 08/28 1638 96 Nasal 0.5L Cannula 08/28 1600 96 Nasal 0.5L Cannula 08/28 1322 98.0 87 19 126/63 96 Nasal 0.5L Cannula 08/28 1111 64 96 Nasal 0.5L Cannula Intake & Output 08/29 1600 08/29 0400 08/28 1600 08/28 0400 08/27 1600 08/27 0400 Intake Total 610 710 250 Output Total 1400 500 300 Balance -790 -500 410 250 Intake, IV 10 150 10 Intake, Oral 600 560 240 Number 0 0 Bowel Movements Output, Urine 1400 500 300 Patient 168 lb Weight Physical Exam: Well-developed, well-nourished female, in no apparent distress. Sclera anicteric. Conjunctiva pink. Oropharynx clear. No stridor. No oral thrush. No apthous ulcers. There is no adenopathy, thyromegaly, or JVD. Anterior scar post C- spine surgery. No peripheral stigmata of inflammatory bowel disease or chronic liver disease on exam. No spiders on the anterior chest wall. Breast & pelvic exams: per [employer] RECEPTION[employer]. No CVA tenderness. Lungs: clear to A&P, except for a few rhonchi at the right base & decreased BS at the bases B/L. No wheezing, rales, or egophony. Heart exam: regular rate rhythm, S1 and S2, without any murmur. Abdominal exam: normal bowel sounds, soft belly, nontender, without guarding or rebound. Old scars. No mass. No organomegaly. No fluid shift. No pulsatile mass. Digital rectal exam: deferred. Extremities: without C, C, or E. No palpable cords. No acute arthropathy. No rash. DP 2+ bilaterally. DTRs 2+ bilaterally. Alert and oriented x 3. Current Medications: Current Medications Sig/Tiffanie Start time Last Medication Dose Route Stop Time Status Admin Acetaminophen 650 MG Q6P PRN 08/27 0645 AC 08/27 PO 1947 Acetylcysteine 2 ML BID 08/27 2100 AC 08/29 INH 0823 Albuterol Sulfate 3 ML EVERY 4 HRS/AWAKE 08/27 2000 AC 08/29 INH 0823 Albuterol Sulfate 3 ML Q6P PRN / 1200 AC INH Benzocaine 1 NATE Q8 08/26 1400 AC 08/28 TOP 1332 Benzonatate 100 MG TID 08/27 2100 AC 08/28 PO 2035 Docusate Sodium 100 MG DAILY 08/28 0900 AC 08/28 PO 1006 Guaifenesin 10 ML .STK-MED ONE 08/29 0010 DC PO 08/29 0011 Guaifenesin 10 ML Q6P PRN 08/25 0530 AC 08/29 PO 0014 Heparin Sodium 5,000 UNIT Q8 08/24 2200 AC (Porcine) SC Moxifloxacin HCl 400 MG DAILY 08/27 1500 AC 08/28 PO 0957 Ondansetron HCl 4 MG Q12P PRN 08/24 1715 AC 08/27 IV 203 Pantoprazole Sodium 40 MG BID 08/26 2100 AC 08/28 IV 203 Polyethylene Glycol 17 GM DAILY 08/29 09 AC PO Senna 187 MG AT BEDTIME 08/28 2099 AC 08/28 PO 2034 Results Pertinent Lab Results: Laboratory Tests 08/29 08/28 06 0655 Chemistry Sodium (137 - 145 mmol/L) 147 H 148 H Potassium (3.5 - 5.1 mmol/L) 3.9 3.9 Chloride (98 - 107 mmol/L) 109 H 111 H Carbon Dioxide (22 - 30 mmol/L) 23 21 L Anion Gap (5 - 16) 15 15 BUN (7 - 17 mg/dL) 15 8 Creatinine (0.5 - 1.0 mg/dL) 0.8 0.7 Estimated GFR (>60 ml/min) > 60 > 60 BUN/Creatinine Ratio (7 - 25 %) 18.8 11.4 Hematology CBC w Diff NO MAN DIFF REQ MAN DIFF ORDERED WBC (4.8 - 10.8 /CUMM) 16.5 H 11.3 H RBC (4.20 - 5.40 /CUMM) 3.17 L 3.20 L Hgb (12.0 - 16.0 G/DL) 10.1 L 10.1 L Hct (37 - 47 %) 29.8 L 29.8 L MCV (81.0 - 99.0 FL) 93.9 93.0 MCH (27.0 - 31.0 PG) 31.8 H 31.7 H MCHC (33.0 - 37.0 G/DL) 33.9 34.1 RDW (11.5 - 14.5 %) 14.1 14.1 Plt Count (130 - 400 /CUMM) 333 264 MPV (7.4 - 10.4 FL) 9.7 9.9 Gran % (42.2 - 75.2 %) 84.5 H 88.7 H Lymphocytes % (20.5 - 51.1 %) 11.8 L 9.9 L Monocytes % (1.7 - 9.3 %) 3.7 1.4 L Eosinophils % (0 - 5 %) 0 0 Basophils % (0.0 - 2.0 %) 0 0 Absolute Granulocytes (1.4 - 6.5 /CUMM) 14.0 H 10.0 H Segmented Neutrophils (42.2 - 75.2 %) 87 H Band Neutrophils (0.0 - 5.0 %) 6 H Absolute Lymphocytes (1.2 - 3.4 /CUMM) 2.0 1.1 L Lymphocytes (20.5 - 51.1 %) 6 L Absolute Monocytes (0.10 - 0.60 /CUMM) 0.6 0.2 Absolute Eosinophils (0.0 - 0.7 /CUMM) 0 0 Absolute Basophils (0.0 - 0.2 /CUMM) 0 0 Metamyelocytes (0.0 - 1.0 %) 1 Platelet Estimate (ADEQUATE) ADEQUATE Anisocytosis 1+ 08/27 0710 Chemistry Sodium (137 - 145 mmol/L) 143 Potassium (3.5 - 5.1 mmol/L) 3.3 L Chloride (98 - 107 mmol/L) 111 H Carbon Dioxide (22 - 30 mmol/L) 22 Anion Gap (5 - 16) 10 BUN (7 - 17 mg/dL) 8 Creatinine (0.5 - 1.0 mg/dL) 0.8 Estimated GFR (>60 ml/min) > 60 BUN/Creatinine Ratio (7 - 25 %) 10.0 Hematology CBC w Diff NO MAN DIFF REQ WBC (4.8 - 10.8 /CUMM) 13.2 H RBC (4.20 - 5.40 /CUMM) 3.01 L Hgb (12.0 - 16.0 G/DL) 9.5 L Hct (37 - 47 %) 27.8 L MCV (81.0 - 99.0 FL) 92.7 MCH (27.0 - 31.0 PG) 31.8 H MCHC (33.0 - 37.0 G/DL) 34.3 RDW (11.5 - 14.5 %) 14.0 Plt Count (130 - 400 /CUMM) 236 MPV (7.4 - 10.4 FL) 10.3 Gran % (42.2 - 75.2 %) 77.1 H Lymphocytes % (20.5 - 51.1 %) 16.9 L Monocytes % (1.7 - 9.3 %) 5.5 Eosinophils % (0 - 5 %) 0.2 Basophils % (0.0 - 2.0 %) 0.3 Absolute Granulocytes (1.4 - 6.5 /CUMM) 10.2 H Absolute Lymphocytes (1.2 - 3.4 /CUMM) 2.2 Absolute Monocytes (0.10 - 0.60 /CUMM) 0.7 H Absolute Eosinophils (0.0 - 0.7 /CUMM) 0 Absolute Basophils (0.0 - 0.2 /CUMM) 0 Imaging/Other Studies: 08/24/17: EKG- NSR @ 98, borderline LAD, nl int, mild early transition, w/o acute ischemia. 08/28/17: EKG- NSR @ 73, nl axis, sl short [place] interval, w/o acute ischemia. 08/24/17: CT HEAD WO IV CONTRAST- No acute intracranial hemorrhage or territorial infarction. Mild chronic white matter microangiopathic changes. A focal acute ischemic process cannot be ruled out on the basis of this study. Findings discussed with Dr. Ace at 12:14 PM on 08/24/2017. 08/24/17: XR PORTABLE CHEST- Questionable mild patchy density in the right lower lobe which may be due to subsegmental atelectasis. An early developing pneumonic consolidation is difficult to exclude. Correlate with auscultation. Anterior cervical fusion hardware partially visualized. 08/25/17: XRY-CHEST XRAY, TWO VIEWS- Progressive opacity in the right lung base with air bronchograms, volume loss and elevation of right hemidiaphragm, consistent with pneumonia. Trace associated pleural fluid may be present as well. 08/27/17: CT CHEST WO IV CONTRAST- 1. Patchy airspace consolidation and groundglass opacification in the right lower lobe dependently may correspond to pneumonia or aspiration. The more central bronchi appear clear, making aspiration slightly less likely. No evidence of barium aspiration. 2. Small bilateral pleural effusions. 08/27/17: BS (*although limited w/o barium soaked bread)- 1. The patient initiated the swallowing mechanism normally without evidence of aspiration. 2. There is normal esophageal motility. Serpiginous filling defects in the distal esophagus may be consistent with prominent venous structures or luminal irregularity. Endoscopy could be considered for further evaluation. 3. No gastroesophageal reflux or hiatal hernia are demonstrated. 4. No holdup of contrast at GEJ. Minimal holdup of barium tablet at GEJ. 5. Post 4 level ACDF between C4 and C7. The hardware appears intact and the intervertebral disc grafts appear well integrated. 08/28/17: XRY-DECUBITUS FILMS- 1. No significant change in size of small right-sided pleural effusion compared to 08/27/2017. Slight increase in size of the pleural effusion compared to 08/25/2017. 2. No change in right lower lobe infiltrate. 3. No significant change in trace left-sided pleural effusion. 08/28/17: XRY-CHEST XRAY, TWO VIEWS- Small bilateral pleural effusions, slightly larger on the right side than the left with associated right lower lobe pneumonia and left lower lobe subsegmental atelectasis. Compared to recent CT scan, no interval changes seen.
--- NOTE | 2017-08-29 08:22 | RADIOLOGY REPORT ---
EXAMINATION: XR DECUBITUS FILMS CLINICAL INFORMATION: Assess for worsening effusion and need for thoracentesis. Right decubitus per Dr. Soriano. Presumptive diagnosis of pleural effusion. COMPARISON: Several prior chest x-rays, most recent of which is dated 08/28/2017. CT scan of the chest dated 08/28/2011. TECHNIQUE: [id number] decubitus views of the abdomen were performed on 2 images. FINDINGS: There is a freely layering small right-sided pleural effusion, unchanged when compared to the CT scan of the chest from 08/27/2017 and slightly larger compared to chest x-ray from 08/25/2017. Associated right lower lobe infiltrate is again noted to less well appreciated. The left lung is fully expanded and demonstrates only a trace left-sided pleural effusion, which is unchanged. No change in other bone and upper abdominal findings discussed previously. IMPRESSION: 1. No significant change in size of small right-sided pleural effusion compared to 08/27/2017. Slight increase in size of the pleural effusion compared to 08/25/2017. 2. No change in right lower lobe infiltrate. 3. No significant change in trace left-sided pleural effusion.
[2017-08-29 08:48] LABS: GRANULOCYTE % 84.5 % (42.2-75.2)
--- NOTE | 2017-08-29 12:06 | PN- Att Addend ---
Attending Addendum Attending Brief Note Patient seen and examined, Overall feeling better. Afebrile and oxygen requirement has improved. Pt scheduled for EGD today. Vital Signs Date Time Temp Pulse Resp B/P B/P Pulse O2 O2 Flow FiO2 Mean Ox Delivery Rate 08/29 0829 96 Nasal 0.5L Cannula 08/29 0800 97 Room Air 08/29 0653 98.0 71 20 129/73 96 Nasal 0.5L Cannula 08/29 0000 Nasal 0.5L Cannula 08/28 2303 97.9 75 20 121/59 98 Nasal 0.5L Cannula 08/28 1638 96 Nasal 0.5L Cannula 08/28 1600 96 Nasal 0.5L Cannula 08/28 1322 98.0 87 19 126/63 96 Nasal 0.5L Cannula on exam; aox3, nad. cv; s1,s2 rrr resp; mild crackles at right base. abd; soft, nt, bs+ ext; no edema Laboratory Tests 08/30 619 Chemistry Sodium (137 - 145 mmol/L) 147 H Potassium (3.5 - 5.1 mmol/L) 3.9 Chloride (98 - 107 mmol/L) 109 H Carbon Dioxide (22 - 30 mmol/L) 23 Anion Gap (5 - 16) 15 BUN (7 - 17 mg/dL) 15 Creatinine (0.5 - 1.0 mg/dL) 0.8 Estimated GFR (>60 ml/min) > 60 BUN/Creatinine Ratio (7 - 25 %) 18.8 Hematology CBC w Diff NO MAN DIFF REQ WBC (4.8 - 10.8 /CUMM) 16.5 H RBC (4.20 - 5.40 /CUMM) 3.17 L Hgb (12.0 - 16.0 G/DL) 10.1 L Hct (37 - 47 %) 29.8 L MCV (81.0 - 99.0 FL) 93.9 MCH (27.0 - 31.0 PG) 31.8 H MCHC (33.0 - 37.0 G/DL) 33.9 RDW (11.5 - 14.5 %) 14.1 Plt Count (130 - 400 /CUMM) 333 MPV (7.4 - 10.4 FL) 9.7 Gran % (42.2 - 75.2 %) 84.5 H Lymphocytes % (20.5 - 51.1 %) 11.8 L Monocytes % (1.7 - 9.3 %) 3.7 Eosinophils % (0 - 5 %) 0 Basophils % (0.0 - 2.0 %) 0 Absolute Granulocytes (1.4 - 6.5 /CUMM) 14.0 H Absolute Lymphocytes (1.2 - 3.4 /CUMM) 2.0 Absolute Monocytes (0.10 - 0.60 /CUMM) 0.6 Absolute Eosinophils (0.0 - 0.7 /CUMM) 0 Absolute Basophils (0.0 - 0.2 /CUMM) 0 A/P: 72 y/o F with pmh sig for GERD,Mild nonerosive gastritis,Gastroesophageal reflux disease and paraesophageal hernia status post Dago's fundoplication ( 2010),Cervical disc herniations at C4-C5, C5-C6 and C6-C7 status Post cervical Arthodesis (2012) admitted with atypical pneumonia. Patient improving the moxifloxacin. Patient also has dysphagia. Barium esophagogram was negative for aspiration although solid phase was not performed. Patient scheduled for endoscopy today. We'll continue moxifloxacin. Patient does have increase in white blood cell count today. We will continue to monitor. She has received dose of steroids 2 days ago. Continue TRC nebs. Oxygen requirement is now down to room air. We'll follow-up on the endoscopy results. Patient was encouraged to ambulate. Continue the rest of the management. Pending endoscopy results, if no significant finding and patient continues to improve with white blood cell count improving tomorrow she can likely be discharged home on oral antibiotics. DVT px; hep sq.
--- NOTE | 2017-08-29 13:22 | PN- Pulmonary ---
Subjective HPI/Critical Care Issues: IN gi No new issues Objective Current Medications: Current Medications Sig/Tiffanie Start time Last Medication Dose Route Stop Time Status Admin Acetaminophen 650 MG Q6P PRN 08/27 0645 AC 08/27 PO 1947 Acetylcysteine 2 ML BID 08/27 2100 AC 08/29 INH 0823 Albuterol Sulfate 3 ML EVERY 4 HRS/AWAKE 08/27 2000 AC 08/29 INH 0823 Albuterol Sulfate 3 ML Q6P PRN 08/25 1200 AC INH Benzocaine 1 NATE Q8 08/26 1400 AC 08/28 TOP 1332 Benzonatate 100 MG TID 08/27 2100 AC 08/28 PO 2035 Chlorhexidine 1 GM .STK-MED ONE 08/29 1313 DC Gluconate TOP 08/29 1314 Docusate Sodium 100 MG DAILY 08/28 09 AC 08/28 PO 1006 Guaifenesin 10 ML .STK-MED ONE 08/29 0010 DC PO 08/29 0011 Guaifenesin 10 ML Q6P PRN 08/25 0530 AC 08/29 PO 0014 Heparin Sodium 5,000 UNIT Q8 08/24 2200 AC (Porcine) SC Moxifloxacin HCl 400 MG DAILY 08/27 1500 AC 08/28 PO 0957 Ondansetron HCl 4 MG Q12P PRN 08/24 1715 AC 08/27 IV 2031 Pantoprazole Sodium 40 MG BID 08/26 2100 AC 08/28 IV 2032 Polyethylene Glycol 17 GM DAILY 08/29 09 AC PO Senna 187 MG AT BEDTIME 08/28 2100 AC 08/28 PO 2035 Vital Signs & I&O Last 24 Hrs of Vitals and I&O: Vital Signs Date Time Temp Pulse Resp B/P B/P Pulse O2 O2 Flow FiO2 Mean Ox Delivery Rate 08/29 0829 96 Nasal 0.5L Cannula 08/29 08 97 Room Air 08/29 0653 98.0 71 20 129/73 96 Nasal 0.5L Cannula 08/29 0000 Nasal 0.5L Cannula 08/28 2303 97.9 75 20 121/59 98 Nasal 0.5L Cannula 08/28 1638 96 Nasal 0.5L Cannula 08/28 1600 96 Nasal 0.5L Cannula 08/28 1322 98.0 87 19 126/63 96 Nasal 0.5L Cannula Intake & Output 08/29 1600 0608 0800 06/08 0000 Intake Total Output Total Balance Patient 168 lb Weight Laboratory Tests 08/29 08/28 0620 0655 Chemistry Sodium (137 - 145 mmol/L) 147 H 148 H Potassium (3.5 - 5.1 mmol/L) 3.9 3.9 Chloride (98 - 107 mmol/L) 109 H 111 H Carbon Dioxide (22 - 30 mmol/L) 23 21 L Anion Gap (5 - 16) 15 15 BUN (7 - 17 mg/dL) 15 8 Creatinine (0.5 - 1.0 mg/dL) 0.8 0.7 Estimated GFR (>60 ml/min) > 60 > 60 BUN/Creatinine Ratio (7 - 25 %) 18.8 11.4 Hematology CBC w Diff NO MAN DIFF REQ MAN DIFF ORDERED WBC (4.8 - 10.8 /CUMM) 16.5 H 11.3 H RBC (4.20 - 5.40 /CUMM) 3.17 L 3.20 L Hgb (12.0 - 16.0 G/DL) 10.1 L 10.1 L Hct (37 - 47 %) 29.8 L 29.8 L MCV (81.0 - 99.0 FL) 93.9 93.0 MCH (27.0 - 31.0 PG) 31.8 H 31.7 H MCHC (33.0 - 37.0 G/DL) 33.9 34.1 RDW (11.5 - 14.5 %) 14.1 14.1 Plt Count (130 - 400 /CUMM) 333 264 MPV (7.4 - 10.4 FL) 9.7 9.9 Gran % (42.2 - 75.2 %) 84.5 H 88.7 H Lymphocytes % (20.5 - 51.1 %) 11.8 L 9.9 L Monocytes % (1.7 - 9.3 %) 3.7 1.4 L Eosinophils % (0 - 5 %) 0 0 Basophils % (0.0 - 2.0 %) 0 0 Absolute Granulocytes (1.4 - 6.5 /CUMM) 14.0 H 10.0 H Segmented Neutrophils (42.2 - 75.2 %) 87 H Band Neutrophils (0.0 - 5.0 %) 6 H Absolute Lymphocytes (1.2 - 3.4 /CUMM) 2.0 1.1 L Lymphocytes (20.5 - 51.1 %) 6 L Absolute Monocytes (0.10 - 0.60 /CUMM) 0.6 0.2 Absolute Eosinophils (0.0 - 0.7 /CUMM) 0 0 Absolute Basophils (0.0 - 0.2 /CUMM) 0 0 Metamyelocytes (0.0 - 1.0 %) 1 Platelet Estimate (ADEQUATE) ADEQUATE Anisocytosis 1+ Microbiology Date/Time Procedure - Status Source Growth 08/28 2039 Legionella Antigen - COMP URINE ROUT 08/28 2039 Streptococcus pneumoniae Antigen (M - COMP URINE ROUT Impression/Plan Impression/Plan Impression/Plan: CT IMPRESSION: 1. Patchy airspace consolidation and groundglass opacification in the right lower lobe dependently may correspond to pneumonia or aspiration. The more central bronchi appear clear, making aspiration slightly less likely. No evidence of barium aspiration. 2. Small bilateral pleural effusions. DICTATED BY: Axel Hung MD DATE/TIME DICTATED:08/27/171347 IMPRESSION 72 y/o F with pmh sig for GERD,Mild nonerosive gastritis,Gastroesophageal reflux disease and paraesophageal hernia status post Dago's fundoplication (2010), Cervical disc herniations at C4-C5, C5-C6 and C6-C7 status Post cervical Arthodesis (2012) admitted with generalized weakness, fever and vomiting possible aspiration pna. ISsues * Improving Right lower lobe pneumonia with a small parapneumonic effusion ongoing fever. His may be related to probable aspiration due to gerd vs humidifier induced atypical pna including leigenella etc * Very small parapneumonic effusion which appears too small to tap * Previous GERD, recent difficulty in swallowing for egd RECOMMENDATION COnt abx No systemic steroids Keep the head of bed at 45 Mechanical soft diet Dc mucomyst Ok to start symbicort 160 bid for cough upon dc DId discuss with the patient not to use any portable humidifiers for now and in the future if she were to use it she needs to have all her portable humidifier drained daily with removal of all slime, and sterilized frequently with either chlorine bleach or hydrogen peroxide. Change nebulizer to DuoNeb 3 times a day prn Proton pump inhibitor by mouth or IV twice a day Continue benzonatate We will follow closely Ok to give one dose of diuretic for effusion
--- NOTE | 2017-08-29 13:46 | Proc Note Endoscopy ---
Endoscopy Procedure Medical History: unchanged Mental Status: alert/oriented Heart/Lung Eval Prior to Sedation: within normal limits (resolving RLL PNA) Candidate for Sedation? Yes Procedure Date: 08/29/17 Procedure Type: EGD w/biopsy Motor Rebuilder: DAVID ANTOINE,BEV Seo ASA Classification: III Indications: INDX: *Please refer to Dr. Hema Dallas's covering inpt GI consult of 08/26/17 & my progress note of 08/29/17). *GERD/intermittent dysphagia to dry solids. 72 y/o female, chronic GERD on outpt PPI, post 07/31/10: Dago fundoplication with mesh for reflux & paraesophageal hernia, intermittent dysphagia to dry solids since 01/2001: CCKY, drainage of ruptured ovarian cyst, AP, tubal ligation, & repair of multiple cervical HD (C4-C5, C5-C6, & C6-C7, s/p cervical arthodesis 11/21/12, for cervical radiculopathy, with [employer] plate, admitted to [facility] 08/24/17 with RLL PNA. The patient was cleared for EGD by pulmonary. 08/27/17: BS (*although limited w/o barium soaked bread)- 1. The patient initiated the swallowing mechanism normally without evidence of aspiration. 2. There is normal esophageal motility. Serpiginous filling defects in the distal esophagus may be consistent with prominent venous structures or luminal irregularity. Endoscopy could be considered for further evaluation. 3. No gastroesophageal reflux or hiatal hernia are demonstrated. 4. No holdup of contrast at GEJ. Minimal holdup of barium tablet at GEJ. 5. Post 4 level ACDF between C4 and C7. The hardware appears intact and the intervertebral disc grafts appear well integrated. *She is followed by Dr. Gamboa for GI as an outpt. *Prior GI workup- 06/29/10: EGD to D2/colonoscopy to cecum per Dr. Gamboa (for dyspepsia, GERD, screening)- Grade II-III erosive esophagitis, Z line at 31 cm, 4 cm HH, bxs GEJ- mixed esophageal and glandular mucosa with surface erosion & underlying fibrosis with chronic inflammation, negative IM, no definite malignancy, random bxs gastric anrum- mild CAG, negative IM, negative H. pylori. left diverticulosis coli, small int hemorrhoids, mild proctitis (probably from prep) with rectal bxs: benign hyperplastic change (a repeat colonoscopy was advised for 10 yrs, namely 06/2020, as there was no pertinent FHx). 07/04/10: UGI series- Spontaneous gastroesophageal reflux to level above the clavicles. 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 Slight irregularity of the mucosal pattern in the distal esophagus. 07/31/10: *Laparoscopic Dago fundoplication with mesh per Dr. Castorena for GERD & paraesophageal hernia. 01/22/12: EGD to D2 for abdominal pain per Dr. Gamboa- 1. Intact Dago fundoplication w/o HH, with possible short-segment Cervantes's esophagus vs non-erosive reflux disease, Z line at 34 cm, bxs GEJ at 34 cm: gastric mucosa with moderate chronic & mild acute inflammation and hyperplastic epithelial change, squamous mucosa with surface erosion with underlying granulation tissue and acute & chronic inflammation, focal moderate eosinophilic infiltration (5-10 eos/HPF), negative viral, negative fungal, negative IM, negative dysplasia, negative Ca. 2. Mild nonerosive gastritis, bxs: mild CAG, HP-neg. 3. Normal small bowel folds, bxs: neg. Instrument: diagnostic gastroscope Meds Received: MAC Patient's Tolerance: good (transient desat) Complications: none Extent Reached: second part of duodenum Procedure: Follow-up upper endoscopy to the second portion of the duodenum with biopsies, was performed with the Olympus high definition videoendoscope, after obtaining informed consent from the patient, with the child monitor and pulse oximeter, with the assistance of Dr. Hong, of [facility]. A mouthpiece was placed in the usual fashion to protect the patient's teeth. The patient was placed in the left lateral decubitus position and sedated by [facility]. At this point, the endoscope was advanced from the mouth into the esophagus, using direct visualization technique. A brief inspection of the vocal cords was normal. Some mucous was suctioned clear from the oropharynx, near the upper esophageal inlet. The proximal esophageal mucosa appeared normal. There were no esophageal rings, webs, lesions, strictures, or ulcers. There was no monilia or vesicles. There was no esophageal ribbing. The Z line was mildly irregular at 34 cm, although there were no definite ectopic islands, nor gross Cervantes's esophagus. The distal esophagus was mildly inflamed, consistent with 1+ nonerosive distal GERD. Esophageal biopsies were obtained: (Specimen A- 34 cm/Z line x 4, Specimen B- 31 cm x 1, Specimen C- 25 cm; rule out SSBE, rule out EOE). There was no residual hiatal hernia pouch. The esophageal lumen was patent. There was no residual food. The fundoplication was intact. The endoscope was advanced from the esophagus into the stomach, without any resistance whatsoever. There were no esophageal or gastric varices, nor any Ita Elmore tear. The gaviria of the stomach distended normally with air insufflation. Direct and retroflexed views of the stomach were performed. There was nothing endoscopically to suggest gastroparesis or portal gastropathy. The mucosa of the gastric cardia (fundoplication intact), fundus, lesser curvature, incisura, body, and antrum appeared normal, without any gastric ulcers or gastric lesions. The pylorus was patent, without any gastric outlet obstruction or channel ulcer. The duodenal bulb and duodenal sweep appeared normal, without any duodenal ulcers, distal ulcerations, or angiodysplasias. I was not able to see the ampulla with the direct-viewing scope. The folds of the second portion of the duodenum were normal in caliber, without any flattening, nodularity, scalloping, or mosaic pattern. No active upper GI bleeding was seen. The patient tolerated the procedure well, although she transiently desaturated twice, rapidly responding to removing the endoscope, providing chin lift, & increasing the FiO2. I was considering electively balloon dilating the esophagus, in case her intermittent dysphagia was related to her fundoplication. However, I decided to forego this, as it would have required intubating the patient, based on her intermittent desaturation and small residual RLL PNA. As the patient was tolerating po intake, the risk: benefit ratio did not warrant dilating her esophagus at this time. The patient was told she could follow-up with Dr. Gamboa for this as an outpatient, if needed. *Documenting photographs were obtained and placed inside the patient's chart. Impression: 1. 1+ nonerosive distal GERD. Irregular Z line at 34 cm. No definite ectopic islands seen. Esophageal biopsies obtained: (Specimen A- 34 cm/Z line x 4, Specimen B- 31 cm x 1, Specimen C- 25 cm; rule out SSBE, rule out EOE). 2. Intact fundoplication, without residual hiatal hernia. Patent esophageal lumen. 3. Empiric elective esophageal balloon dilatation deferred, based on intermittent desaturation with residual RLL PNA, as this would have required intubation. Recommendations: Await esophageal biopsies. The patient was advised to call the office within 2 weeks for the pathology results. May switch IV Protonix 40 mg BID to po PPI BID , 1/2 hour before breakfast & supper. Resume mechanical soft diet with aspiration precautions, & advance as tolerated, cutting food into small pieces. Continue antireflux measures. Sleep with the head of the bed elevated. Moxifloxacin per ID. Supplemental O2 prn. The patient is to follow-up with Dr. Gamboa after D/C, who will resume her outpt GI care. Consideration for outpt repeat EGD with empiric esophageal dilitation (intermittent dysphagia to dry solids, post Dago fundoplication with mesh), depending on clinical course. By dates, the patient is due for a repeat colonoscopy in 06/2020. Follow up with ID, pulmonary, & hospitalist teams, regarding other issues. The above was discussed with the patient, Dr. Bah, Dr. Diaz, Dr. Hema Dallas, & Dr. Gamboa, postoperatively. *Further inpatient GI follow-up, as needed. ADDENDUM: 09/01/2017- A. ESOPHAGUS, IRREGULAR Z-LINE AT 34 CM, BIOPSY X 4: MIXED ESOPHAGEAL AND GLANDULAR MUCOSA WITH MILD CHRONIC INFLAMMATION. *NEGATIVE FOR INTESTINAL METAPLASIA OR DYSPLASIA. *ESOPHAGEAL MUCOSA NEGATIVE FOR EOSINOPHILS. GIEMSA STAIN IS NEGATIVE FOR HELICOBACTER ORGANISMS. B. ESOPHAGUS AT 31 CM, MULTIPLE BIOPSIES: ESOPHAGEAL MUCOSA WITH CHRONIC INFLAMMATION. *NEGATIVE FOR EOSINOPHILS. C. ESOPHAGUS AT 25 CM, MULTIPLE BIOPSIES: UNREMARKABLE ESOPHAGEAL MUCOSA. *NEGATIVE FOR SIGNIFICANT NUMBER OF EOSINOPHILS. Dictated by: Clarita Ladd MD Esophageal bxs at irregular Z line at 34 cm- mixed esophageal & glandular mucosa with mild chronic inflammation, negative Cervantes's, negative dysplasia, negative EOE. Esophageal bxs at 31 cm- esophageal mucosa with chronic inflammation, negative EOE. Esophageal bxs at 25 cm- normal esophageal mucosa, negative EOE. * The p had been D/C from [facility] 08/31/17. Her GI meds then included Omeprzole 40 mg po BID & Miralax. Dr. Hema Dallas had done the inpt covering GI consult on , but she was followed by Dr. Gamboa for GI as an outpt. I called the pt at 8:04 p.m. at [phone], regarding the mild GERD, neg Cervantes's, neg EOE. She was told to continue her Omeprazole 40 mg po BID, 1/2 hour before breakfast & supper, for now. Mechanical soft diet with aspiration precautions, & advance as tolerated, cutting food into small pieces. Continue antireflux measures. Sleep with the head of the bed elevated. Moxifloxacin per ID. The patient was told to follow-up with Dr. Gamboa after D/C, who will resume her outpt GI care. *Consideration for outpt repeat EGD with empiric esophageal dilitation (intermittent dysphagia to dry solids, post Dago fundoplication with mesh), after her PNA resolves, depending on clinical course, as there was no EOE on bxs. *If this does not help, consideration for esophageal manometry. By dates, the patient is due for a repeat colonoscopy in 06/2020. 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 CC: Joe ANTOINE,Zena; Leonor ANTOINE,Aneta Fung; Niurka ANTOINE,Conner Barry; Mari Frazier DO; Giselle ANTOINE,Patricia Johnson; Lizette ANTOINE,Manny Will; Burt ANTOINE,Naveen Prado; Cooper ANTOINE, Vinayak
--- NOTE | 2017-08-29 14:59 | PN- Infect Dx ---
Subjective Subjective: Afebrile. She notes overall improvement in her respiratory status, with no shortness of breath and decreased cough. She is frustrated regarding her recent endoscopy results. Objective Last 24 Hrs of Vital Signs/I&O Vital Signs Date Time Temp Pulse Resp B/P B/P Pulse O2 O2 Flow FiO2 Mean Ox Delivery Rate 08/29 0829 96 Nasal 0.5L Cannula 08/29 08 97 Room Air 08/29 0653 98.0 71 20 129/73 96 Nasal 0.5L Cannula 08/29 0000 Nasal 0.5L Cannula 08/28 2303 97.9 75 20 121/59 98 Nasal 0.5L Cannula 08/28 1638 96 Nasal 0.5L Cannula 08/28 1600 96 Nasal 0.5L Cannula Intake & Output 08/29 1600 08/29 0808/29 0000 Intake Total Output Total Balance Patient 168 lb Weight Physical Exam Other Physical Findings: She appears comfortable in no acute distress Lungs crackles at the right base Heart regular rhythm with no murmur Abdomen is soft, nontender with positive bowel sounds Extremities no cyanosis, clubbing or edema Results Last 24 Hours of Lab Results: Laboratory Tests 08/30 619 Chemistry Sodium (137 - 145 mmol/L) 147 H Potassium (3.5 - 5.1 mmol/L) 3.9 Chloride (98 - 107 mmol/L) 109 H Carbon Dioxide (22 - 30 mmol/L) 23 Anion Gap (5 - 16) 15 BUN (7 - 17 mg/dL) 15 Creatinine (0.5 - 1.0 mg/dL) 0.8 Estimated GFR (>60 ml/min) > 60 BUN/Creatinine Ratio (7 - 25 %) 18.8 Hematology CBC w Diff NO MAN DIFF REQ WBC (4.8 - 10.8 /CUMM) 16.5 H RBC (4.20 - 5.40 /CUMM) 3.17 L Hgb (12.0 - 16.0 G/DL) 10.1 L Hct (37 - 47 %) 29.8 L MCV (81.0 - 99.0 FL) 93.9 MCH (27.0 - 31.0 PG) 31.8 H MCHC (33.0 - 37.0 G/DL) 33.9 RDW (11.5 - 14.5 %) 14.1 Plt Count (130 - 400 /CUMM) 333 MPV (7.4 - 10.4 FL) 9.7 Gran % (42.2 - 75.2 %) 84.5 H Lymphocytes % (20.5 - 51.1 %) 11.8 L Monocytes % (1.7 - 9.3 %) 3.7 Eosinophils % (0 - 5 %) 0 Basophils % (0.0 - 2.0 %) 0 Absolute Granulocytes (1.4 - 6.5 /CUMM) 14.0 H Absolute Lymphocytes (1.2 - 3.4 /CUMM) 2.0 Absolute Monocytes (0.10 - 0.60 /CUMM) 0.6 Absolute Eosinophils (0.0 - 0.7 /CUMM) 0 Absolute Basophils (0.0 - 0.2 /CUMM) 0 Last 24 Hours of Loy Results: Blood cultures August 24 negative Recent Imaging Studies: Chest x-ray August 28 reveals small bilateral pleural effusions, right greater than left, with associated patchy consolidation in the right lower lobe, unchanged from the previous study Assessment/Plan ID Impression: Overall improvement in her respiratory status, with temperatures remaining normal, but with her white blood cell count increased today, possibly secondary to the dose of Solumedrol she received 2 days ago, on Moxifloxacin Day 2 (after 3 days of Ceftriaxone and Azithromycin) for a right lower lobe community acquired pneumonia, possibly atypical in origin. If her white blood cell count remains elevated then further evaluation of her right pleural effusion may be necessary. The results of her recent upper endoscopy for her chronic complaints of dysphagia are noted. Suggestion: 1. Recheck CBC in the a.m. 2. Continue Moxifloxacin for a total of 5-[address] Kelley is covering over the weekend
[2017-08-29] MEDS ORDERED: MOXIFLOXACIN H400 M2 PO (15:15)
[2017-08-29] MEDS ORDERED: MIRALAX119 GM PO (15:15)
[2017-08-29] MEDS ORDERED: OMEPRAZOLE40 M1 PO ×2 (15:30→15:33)
[2017-08-29] MEDS ORDERED: SYMBICORT 80-10.2 GM INH (17:54)
[2017-08-29 18:45] VITALS: BP 142/72
[2017-08-29 21:36] VITALS: BP 128/65
[2017-08-30 06:00] VITALS: BP 138/70
--- NOTE | 2017-08-30 08:01 | PN- Housestaff ---
Subjective Follow-up For: pneumonia dysphagia Subjective: patient seen and examined. States she hasn't had a bowel movement in 4 days. Wishes to know more about her plan of care. Feels she is unsteady on her feet and would like to ambulate around more. Review of Systems Constitutional: Reports: no symptoms. Objective Last 24 Hrs of Vital Signs/I&O Vital Signs Date Time Temp Pulse Resp B/P B/P Pulse O2 O2 Flow FiO2 Mean Ox Delivery Rate 08/30 0831 94 Room Air 08/30 0800 Room Air 08/30 0600 98.6 70 20 138/70 95 Room Air 08/30 0000 Room Air 08/29 2136 98.4 88 18 128/65 94 / 1845 98.4 84 18 142/72 95 Room Air 08/29 1645 93 Room Air Physical Exam General Appearance: Alert, Oriented X3, Cooperative, No Acute Distress Skin: No Rashes, No Breakdown Skin Temp/Moisture Exam: Warm/Dry Sepsis Skin Exam (color): Normal for Ethnicity HEENT: Atraumatic Cardiovascular: Normal S1, Normal S2, systolic murmur Lungs: Normal Air Movement, diminished air entry at bases Abdomen: Soft, No Tenderness Neurological: Normal Speech Extremities: No Edema Last 24 Hrs of Lab/Loy Results Last 24 Hrs of Labs/Mics: Laboratory Tests 08/30/17 0710: Anion Gap 10, Estimated GFR > 60, BUN/Creatinine Ratio 22.9, CBC w Diff NO MAN DIFF REQ, RBC 3.22 L, MCV 93.2, MCH 31.7 H, MCHC 34.0, RDW 14.2, MPV 9.7, Gran % 63.8, Lymphocytes % 29.3, Monocytes % 4.8, Eosinophils % 1.7, Basophils % 0.4, Absolute Granulocytes 5.3, Absolute Lymphocytes 2.5, Absolute Monocytes 0.4, Absolute Eosinophils 0.1, Absolute Basophils 0 Microbiology 08/29 1600 LOWER RESP: Respiratory Culture - CAN Cancelled: NUMBER OF SQUAMOUS CELLS INDICATES POOR QUALITY SPECIMEN 08/29 1600 LOWER RESP: Gram Stain - CAN Cancelled: NUMBER OF SQUAMOUS CELLS INDICATES POOR QUALITY SPECIMEN Assessment/Plan Assessment: Ms. Farooq is a 72-year-old female with past medical history of GERD,Mild nonerosive gastritis,Gastroesophageal reflux disease and paraesophageal hernia status post Dago's fundoplication (2010),Cervical disc herniations at C4-C5, C5-C6 and C6-C7 status Post cervical Arthodesis (2012), presented to the ED with chief complaints of fever #Atypical PNA #Hx of dysphagia #Acute hypoxic respiratory failure - 2/2 ?barium Plan: Monitor sodium. It is improving. Encourage PO free water. EGD yesterday showed nonerosive distal GERD with intact fundoplication Continue Moxifloxacin 400mg daily for a total of 5-7 day course. TRC/nebs PRN Acapella for mucus Chest physiotherapy PRN CXR consistent with RL PNA Continue Protonix for acid reflux Barium esophagram showed normal esophageal motility but distal esophagus irregularities Appreciate ID recommendations Chest CT showed small-mod pleural effussion but at this time we will hold off on obtaining an ECHO and diuresis because she does not appear to be fluid overload Miralax/Senna/Colace for constipation. patient has not had a bowel movement in 4 days PT Can likely be discharged tomorrow. Diet -Regular DVT prophylaxis - ALPS/heparin CODE STATUS - full code Problem List: 1. Pneumonia Pain Ratin Pain Location: none Pain Goal: Remain pain free Pain Plan: none Tomorrow's Labs & Rationales: CBC, BEP
[2017-08-30 08:33] LABS: ABSOLUTE BASOPHIL COUNT 0 /CUMM (0.0-0.2); ABSOLUTE EOSINOPHIL COUNT 0.1 /CUMM (0.0-0.7); ABSOLUTE GRANULOCYTE CT 5.3 /CUMM (1.4-6.5); ABSOLUTE LYMPH COUNT 2.5 /CUMM (1.2-3.4); ABSOLUTE MONOCYTE COUNT 0.4 /CUMM (0.10-0.60); BASOPHIL % 0.4 % (0.0-2.0); EOSINOPHIL % 1.7 % (0-5); GRANULOCYTE % 63.8 % (42.2-75.2); MEAN CORPUSCULAR HGB 31.7 PG (27.0-31.0); MEAN CORPUSCULAR VOLUME 93.2 FL (81.0-99.0); MEAN PLATELET VOLUME 9.7 FL (7.4-10.4); PLATELET COUNT 359 /CUMM (130-400); RBC DISTRIBUTION WIDTH 14.2 % (11.5-14.5); RED BLOOD CELL CT 3.22 /CUMM (4.20-5.40); WHITE BLOOD CELL COUNT 8.4 /CUMM (4.8-10.8)
--- NOTE | 2017-08-30 08:46 | PN- Att Addend ---
Attending Addendum Attending Brief Note Patient seen and examined. Plan of care discussed with the medical team and the patient. Available lab work and radiology test reports were reviewed. Patient is feeling better. She has occasional cough with scant amount of sputum production but denies any difficulty breathing. She has been able to ambulate to bathroom without any difficulty. Assessment * Pneumonia-clinically stable * Nonerosive GERD-status post EGD * History of cervical disc herniation at multiple levels Plan * Please ambulate patient in hallway; check O2 sat on ambulation * If above is without any problems patient can be discharged home to complete moxifloxacin for 5-7 days * Encourage oral fluid intake to decrease elevated sodium * Follow-up results of CBC from this morning Exam: General: Patient awake alert oriented without any distress CVS: S1 plus S2 without any murmur or gallops Chest: Few scattered crepitation without any wheeze. There is no respiratory distress. 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 without any focal neuro deficit and follows commands appropriately Extremities: No edema; no clubbing or cyanosis noted Current Medications Sig/Tiffanie Start time Last Medication Dose Route Stop Time Status Admin Acetaminophen 650 MG Q6P PRN 08/27 0645 AC 08/27 PO 1947 Acetylcysteine 2 ML BID 08/27 2100 DC 08/29 INH 1645 Albuterol Sulfate 3 ML EVERY 4 HRS/AWAKE 08/27 2000 AC 08/30 INH 0803 Albuterol Sulfate 3 ML Q6P PRN / 1200 AC INH Benzocaine 1 NATE Q8 08/26 1400 AC 08/28 TOP 1332 Benzonatate 100 MG TID 08/27 2100 AC 08/30 PO 0820 Chlorhexidine 1 GM .STK-MED ONE 08/29 1313 DC Gluconate TOP 08/29 1314 Docusate Sodium 100 MG DAILY 08/28 0900 AC 08/30 PO 0820 Guaifenesin 10 ML Q6P PRN 08/25 0530 AC 08/29 PO 0014 Heparin Sodium 5,000 UNIT Q8 08/24 2200 AC (Porcine) SC Ipratropium [place] 2.5 ML TID 08/29 2100 AC 08/30 INH 0803 Moxifloxacin HCl 400 MG DAILY 08/27 1500 AC 08/30 PO 0821 Omeprazole 40 MG BID 08/29 2100 AC 08/30 PO 0820 Ondansetron HCl 4 MG Q12P PRN 08/24 1715 AC 08/27 IV 203 Pantoprazole Sodium 40 MG BID 08/26 2099 DC 08/29 IV 1428 Polyethylene Glycol 17 GM DAILY 08/29 899 AC 08/30 PO 08 Senna 187 MG AT BEDTIME 08/28 2099 AC 08/29 PO 2115 Laboratory Tests 08/30/17 0710: Anion Gap 10, Estimated GFR > 60, BUN/Creatinine Ratio 22.9, CBC w Diff Pending, WBC Pending, RBC Pending, Hgb Pending, Hct Pending, MCV Pending, MCH Pending, MCHC Pending, RDW Pending, Plt Count Pending, MPV Pending 08/29/17 0620: Anion Gap 15, Estimated GFR > 60, BUN/Creatinine Ratio 18.8, CBC w Diff NO MAN DIFF REQ, RBC 3.17 L, MCV 93.9, MCH 31.8 H, MCHC 33.9, RDW 14.1, MPV 9.7, Gran % 84.5 H, Lymphocytes % 11.8 L, Monocytes % 3.7, Eosinophils % 0, Basophils % 0, Absolute Granulocytes 14.0 H, Absolute Lymphocytes 2.0, Absolute Monocytes 0.6, Absolute Eosinophils 0, Absolute Basophils 0 08/28/17 0655: Anion Gap 15, Estimated GFR > 60, BUN/Creatinine Ratio 11.4, CBC w Diff MAN DIFF ORDERED, RBC 3.20 L, MCV 93.0, MCH 31.7 H, MCHC 34.1, RDW 14.1, MPV 9.9, Gran % 88.7 H, Lymphocytes % 9.9 L, Monocytes % 1.4 L, Eosinophils % 0, Basophils % 0, Absolute Granulocytes 10.0 H, Segmented Neutrophils 87 H, Band Neutrophils 6 H, Absolute Lymphocytes 1.1 L, Lymphocytes 6 L, Absolute Monocytes 0.2, Absolute Eosinophils 0, Absolute Basophils 0, Metamyelocytes 1, Platelet Estimate ADEQUATE, Anisocytosis 1+ Microbiology 08/30 1599 LOWER RESP: Respiratory Culture - CAN Cancelled: NUMBER OF SQUAMOUS CELLS INDICATES POOR QUALITY SPECIMEN 08/30 1599 LOWER RESP: Gram Stain - CAN Cancelled: NUMBER OF SQUAMOUS CELLS INDICATES POOR QUALITY SPECIMEN 08/28 2039 URINE ROUT: Legionella Antigen - COMP 08/28 2039 URINE ROUT: Streptococcus pneumoniae Antigen (M - COMP Vital Signs Date Time Temp Pulse Resp B/P B/P Pulse O2 O2 Flow FiO2 Mean Ox Delivery Rate 08/30 0831 94 Room Air 08/30 0600 98.6 70 20 138/70 95 Room Air 08/30 0000 Room Air 08/29 2136 98.4 88 18 128/65 94 08/29 1845 98.4 84 18 142/72 95 Room Air 08/29 1645 93 Room Air
--- NOTE | 2017-08-30 10:03 | PN- Pulmonary ---
Subjective HPI/Critical Care Issues: Patient is on room air though has a residual. Objective Current Medications: Current Medications Sig/Tiffanie Start time Last Medication Dose Route Stop Time Status Admin Acetaminophen 650 MG Q6P PRN 08/27 0645 AC 08/27 PO 1947 Acetylcysteine 2 ML BID 08/27 2100 DC 08/29 INH 1645 Albuterol Sulfate 3 ML EVERY 4 HRS/AWAKE 08/27 2000 AC 08/30 INH 0803 Albuterol Sulfate 3 ML Q6P PRN / 1200 AC INH Benzocaine 1 NATE Q8 08/26 1400 AC 08/28 TOP 1332 Benzonatate 100 MG TID 08/27 2100 AC 08/30 PO 0820 Chlorhexidine 1 GM .STK-MED ONE 08/29 1313 DC Gluconate TOP 08/29 1314 Docusate Sodium 100 MG DAILY 08/28 0900 AC 08/30 PO 0820 Guaifenesin 10 ML Q6P PRN 08/25 0530 AC 08/29 PO 0014 Heparin Sodium 5,000 UNIT Q8 08/24 2200 AC (Porcine) SC Ipratropium [place] 2.5 ML TID 08/29 2100 AC 08/30 INH 0803 Moxifloxacin HCl 400 MG DAILY 08/27 1500 AC 08/30 PO 0821 Omeprazole 40 MG BID 08/29 2100 AC 08/30 PO 0820 Ondansetron HCl 4 MG Q12P PRN 08/24 1715 AC 08/27 IV 2031 Pantoprazole Sodium 40 MG BID 08/26 2100 DC 08/29 IV 1428 Polyethylene Glycol 17 GM DAILY 08/29 0900 AC 08/30 PO 0821 Senna 187 MG AT BEDTIME 08/28 2100 AC 08/29 PO 2115 Vital Signs & I&O Last 24 Hrs of Vitals and I&O: Vital Signs Date Time Temp Pulse Resp B/P B/P Pulse O2 O2 Flow FiO2 Mean Ox Delivery Rate 08/31 0731 94 Room Air 08/30 0800 Room Air 08/30 0600 98.6 70 20 138/70 95 Room Air 08/30 0000 Room Air 08/29 2136 98.4 88 18 128/65 94 / 1845 98.4 84 18 142/72 95 Room Air 08/29 1645 93 Room Air Since saturation 94% exam for chest shows mildly diminished breath sounds at the bases there are no wheezes or crackles cardiac exam shows a regular S1 and S2 without murmurs Impression/Plan Impression/Plan Impression/Plan: 72-year-old patient admitted for community acquired pneumonia with improved temperature and white count. Patient is mildly hyponatremic Recommendations: Complete course of antibiotics. We'll therapy evaluation for ambulation. Increase free water.
[2017-08-30 15:01] VITALS: BP 122/64
[2017-08-30 21:58] VITALS: BP 142/82
[2017-08-31 06:17] VITALS: BP 148/86
--- NOTE | 2017-08-31 08:07 | PN- Housestaff ---
Subjective Follow-up For: Pnemonia Subjective: Patient seen and examined. States she walked around well yesterday. Feels she can go home today as she is more close to her baseline physically than yesterday. Had a small movement yesterday. Has a persistent cough but does not wish to take any meds. Review of Systems Constitutional: Reports: no symptoms. Objective Last 24 Hrs of Vital Signs/I&O Vital Signs Date Time Temp Pulse Resp B/P B/P Pulse O2 O2 Flow FiO2 Mean Ox Delivery Rate 08/31 0800 96 Room Air 08/31 0755 92 Room Air Room Air 08/31 0617 97.9 86 20 148/86 92 06/ 0000 94 08/30 2158 98.4 92 142/82 94 Room Air 08/30 1940 94 Room Air 08/30 1501 97.6 90 20 122/64 94 Room Air Intake & Output 08/31 1600 08/31 0800 08/31 0000 Intake Total 120 510 Output Total 350 Balance 120 160 Intake, IV 10 Intake, Oral 120 500 Number 0 Bowel Movements Output, Urine 350 Physical Exam General Appearance: Alert, Oriented X3, Cooperative, Mild Distress Skin: No Rashes, No Breakdown Skin Temp/Moisture Exam: Warm/Dry Sepsis Skin Exam (color): Normal for Ethnicity HEENT: Atraumatic Cardiovascular: Normal S1, Normal S2, No Murmurs Lungs: Clear to Auscultation, Normal Air Movement Abdomen: Soft, No Tenderness Neurological: Normal Speech Extremities: No Edema Last 24 Hrs of Lab/Loy Results Last 24 Hrs of Labs/Mics: Laboratory Tests 08/31/17 0720: Anion Gap 10, Estimated GFR > 60, BUN/Creatinine Ratio 11.1, CBC w Diff NO MAN DIFF REQ, RBC 3.58 L, MCV 93.3, MCH 31.4 H, MCHC 33.7, RDW 13.9, MPV 9.2, Gran % 60.5, Lymphocytes % 31.6, Monocytes % 6.0, Eosinophils % 1.5, Basophils % 0.4, Absolute Granulocytes 6.3, Absolute Lymphocytes 3.3, Absolute Monocytes 0.6, Absolute Eosinophils 0.2, Absolute Basophils 0 Assessment/Plan Assessment: Ms. Farooq is a 72-year-old female with past medical history of GERD,Mild nonerosive gastritis,Gastroesophageal reflux disease and paraesophageal hernia status post Dago's fundoplication (2010),Cervical disc herniations at C4-C5, C5-C6 and C6-C7 status Post cervical Arthodesis (2013), presented to the ED with chief complaints of fever #Atypical PNA #Hx of dysphagia #Acute hypoxic respiratory failure - 2/2 ?barium Plan: Na has trended to normal today. She is stable for discharge today. Advised to continue her course of antibiotics and return to ED for any worsening symptoms or concerns including any fevers. EGD showed nonerosive distal GERD with intact fundoplication Continue Moxifloxacin 400mg daily for a total of 7 day course. TRC/nebs PRN CXR was consistent with RL PNA Continue Protonix for acid reflux Barium esophagram showed normal esophageal motility but distal esophagus irregularities Appreciate ID recommendations Miralax/Senna/Colace for constipation. Diet -Regular DVT prophylaxis - ALPS/heparin CODE STATUS - full code Problem List: 1. Pneumonia Pain Ratin Pain Location: none Pain Goal: Remain pain free Pain Plan: none Tomorrow's Labs & Rationales: none Pain Plan: none Tomorrow's Labs & Rationales: none
[2017-08-31 08:37] LABS: ABSOLUTE BASOPHIL COUNT 0 /CUMM (0.0-0.2); ABSOLUTE EOSINOPHIL COUNT 0.2 /CUMM (0.0-0.7); ABSOLUTE GRANULOCYTE CT 6.3 /CUMM (1.4-6.5); ABSOLUTE LYMPH COUNT 3.3 /CUMM (1.2-3.4); ABSOLUTE MONOCYTE COUNT 0.6 /CUMM (0.10-0.60); BASOPHIL % 0.4 % (0.0-2.0); EOSINOPHIL % 1.5 % (0-5); GRANULOCYTE % 60.5 % (42.2-75.2); HEMATOCRIT 33.4 % (37-47); MEAN CORPUSCULAR HGB 31.4 PG (27.0-31.0); MEAN CORPUSCULAR HGB CONC 33.7 G/DL (33.0-37.0); MEAN CORPUSCULAR VOLUME 93.3 FL (81.0-99.0); MEAN PLATELET VOLUME 9.2 FL (7.4-10.4); PLATELET COUNT 430 /CUMM (130-400); RBC DISTRIBUTION WIDTH 13.9 % (11.5-14.5); RED BLOOD CELL CT 3.58 /CUMM (4.20-5.40); WHITE BLOOD CELL COUNT 10.4 /CUMM (4.8-10.8)
[2017-08-31] MEDS ORDERED: MOXIFLOXACIN H400 M2 PO (09:32)
[2017-08-31] MEDS ORDERED: OMEPRAZOLE40 M1 PO (09:32)
[2017-08-31] MEDS ORDERED: MIRALAX119 GM PO (09:32)
[2017-08-31] MEDS ORDERED: SYMBICORT 80-10.2 GM INH (09:32)
--- NOTE | 2017-08-31 10:14 | PN- Pulmonary ---
Subjective HPI/Critical Care Issues: Patient is comfortable without shortness breath she has residual dry cough Objective Current Medications: Current Medications Sig/Tiffanie Start time Last Medication Dose Route Stop Time Status Admin Acetaminophen 650 MG Q6P PRN 08/27 0645 AC 08/27 PO 1947 Albuterol Sulfate 3 ML TID 08/30 1400 AC 08/31 INH 0755 Albuterol Sulfate 3 ML EVERY 4 HRS/AWAKE 08/27 2000 DC 08/30 INH 0803 Albuterol Sulfate 3 ML Q6P PRN / 1200 AC INH Benzocaine 1 NATE Q8 08/26 1400 AC 08/28 TOP 1332 Benzonatate 100 MG TID 08/27 2100 AC 08/31 PO 0816 Docusate Sodium 100 MG DAILY 08/28 0900 AC 08/31 PO 0816 Guaifenesin 10 ML Q6P PRN / 0530 AC 08/29 PO 0014 Heparin Sodium 5,000 UNIT Q8 08/24 2200 AC (Porcine) SC Ipratropium [place] 2.5 ML TID 08/29 2100 AC 08/31 INH 0755 Moxifloxacin HCl 400 MG DAILY 08/27 1500 AC 08/31 PO 0816 Omeprazole 40 MG BID 08/29 2100 AC 08/31 PO 0816 Ondansetron HCl 4 MG ONCE ONE 08/31 0845 DC 08/31 IV 08/31 0846 0907 Ondansetron HCl 4 MG Q12P PRN 08/24 1715 AC 08/27 IV 2031 Polyethylene Glycol 17 GM DAILY 08/29 0900 AC 08/31 PO 0816 Senna 187 MG AT BEDTIME 08/28 2100 AC 08/30 PO 2124 Vital Signs & I&O Last 24 Hrs of Vitals and I&O: Room air oxygen saturation 96% exam for chest shows clear lung roth are no wheezes or crackles cardiac exam shows a regular S1 and S2 without murmurs Vital Signs Date Time Temp Pulse Resp B/P B/P Pulse O2 O2 Flow FiO2 Mean Ox Delivery Rate 08/31 08 96 Room Air 08/31 0755 92 Room Air Room Air 08/31 0617 97.9 86 20 148/86 92 08/31 0000 94 08/30 2158 98.4 92 142/82 94 Room Air 08/30 1940 94 Room Air 08/30 1501 97.6 90 20 122/64 94 Room Air Intake & Output 08/31 1600 08/31 0800 08/31 0000 Intake Total 120 510 Output Total 350 Balance 120 160 Intake, IV 10 Intake, Oral 120 500 Number 0 Bowel Movements Output, Urine 350 Impression/Plan Impression/Plan Impression/Plan: 72-year-old woman admitted with pneumonia and is clinically improved Recommendations: Complete course of antibiotics. Physical therapy evaluation for ambulation. Follow-up with Conner Bah MD post discharge
--- NOTE | 2017-08-31 11:46 | PN- Att Addend ---
Attending Addendum Attending Brief Note Patient seen and examined. Plan of care discussed with the medical team and the patient. Available lab work and radiology test reports were reviewed. Patient is feeling better. She has occasional cough with scant amount of sputum production but denies any difficulty breathing. She has been able to ambulate without any difficulty. She wants to go home today. Assessment * Pneumonia-clinically stable * Nonerosive GERD-status post EGD * History of cervical disc herniation at multiple levels Plan * patient can be discharged home to complete moxifloxacin for 5-7 days * Encourage oral fluid intake to decrease elevated sodium Exam: General: Patient awake alert oriented without any distress CVS: S1 plus S2 without any murmur or gallops Chest: Few scattered crepitation without any wheeze. There is no respiratory distress. 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 without any focal neuro deficit and follows commands appropriately Extremities: No edema; no clubbing or cyanosis noted Current Medications Sig/Tiffanie Start time Last Medication Dose Route Stop Time Status Admin Acetaminophen 650 MG Q6P PRN 08/27 0645 AC 08/27 PO 1947 Albuterol Sulfate 3 ML TID 08/30 1400 AC 08/31 INH 0755 Albuterol Sulfate 3 ML EVERY 4 HRS/AWAKE 08/27 2000 DC 08/30 INH 0803 Albuterol Sulfate 3 ML Q6P PRN / 1200 AC INH Benzocaine 1 NATE Q8 08/26 1400 AC 08/28 TOP 1332 Benzonatate 100 MG TID 08/27 2100 AC 08/31 PO 0816 Docusate Sodium 100 MG DAILY 08/28 0900 AC 08/31 PO 0816 Guaifenesin 10 ML Q6P PRN / 0530 AC 08/29 PO 0014 Heparin Sodium 5,000 UNIT Q8 08/24 2200 AC (Porcine) SC Ipratropium [place] 2.5 ML TID 08/29 2100 AC 08/31 INH 0755 Moxifloxacin HCl 400 MG DAILY 08/27 1500 AC 08/31 PO 0816 Omeprazole 40 MG BID 08/29 2100 AC 08/31 PO 0816 Ondansetron HCl 4 MG ONCE ONE 08/31 0845 DC 08/31 IV 08/31 0846 0907 Ondansetron HCl 4 MG Q12P PRN 08/24 1715 AC 06/06 IV 2031 Polyethylene Glycol 17 GM DAILY 08/29 0900 AC 08/31 PO 0816 Senna 187 MG AT BEDTIME 08/28 2100 AC 08/30 PO 2123 Laboratory Tests 09/01 719 Chemistry Sodium (137 - 145 mmol/L) 145 Potassium (3.5 - 5.1 mmol/L) 3.5 Chloride (98 - 107 mmol/L) 106 Carbon Dioxide (22 - 30 mmol/L) 29 Anion Gap (5 - 16) 10 BUN (7 - 17 mg/dL) 10 Creatinine (0.5 - 1.0 mg/dL) 0.9 Estimated GFR (>60 ml/min) > 60 BUN/Creatinine Ratio (7 - 25 %) 11.1 Hematology CBC w Diff NO MAN DIFF REQ WBC (4.8 - 10.8 /CUMM) 10.4 RBC (4.20 - 5.40 /CUMM) 3.58 L Hgb (12.0 - 16.0 G/DL) 11.3 L Hct (37 - 47 %) 33.4 L MCV (81.0 - 99.0 FL) 93.3 MCH (27.0 - 31.0 PG) 31.4 H MCHC (33.0 - 37.0 G/DL) 33.7 RDW (11.5 - 14.5 %) 13.9 Plt Count (130 - 400 /CUMM) 430 H MPV (7.4 - 10.4 FL) 9.2 Gran % (42.2 - 75.2 %) 60.5 Lymphocytes % (20.5 - 51.1 %) 31.6 Monocytes % (1.7 - 9.3 %) 6.0 Eosinophils % (0 - 5 %) 1.5 Basophils % (0.0 - 2.0 %) 0.4 Absolute Granulocytes (1.4 - 6.5 /CUMM) 6.3 Absolute Lymphocytes (1.2 - 3.4 /CUMM) 3.3 Absolute Monocytes (0.10 - 0.60 /CUMM) 0.6 Absolute Eosinophils (0.0 - 0.7 /CUMM) 0.2 Absolute Basophils (0.0 - 0.2 /CUMM) 0 Vital Signs Date Time Temp Pulse Resp B/P B/P Pulse O2 O2 Flow FiO2 Mean Ox Delivery Rate 08/31 0800 96 Room Air 08/31 0755 92 Room Air Room Air 08/31 0617 97.9 86 20 148/86 92 06/ 0000 94 08/30 2158 98.4 92 142/82 94 Room Air 08/30 1940 94 Room Air 08/30 1501 97.6 90 20 122/64 94 Room Air Intake & Output 08/31 1600 08/31 0800 08/31 0000 Intake Total 120 510 Output Total 350 Balance 120 160 Intake, IV 10 Intake, Oral 120 500 Number 0 Bowel Movements Output, Urine 350
--- NOTE | 2017-09-01 07:51 | Discharge Summary ---
Visit Information Visit Dates Admission Date: 08/24/17 Discharge Date: 08/31/17 Hospital Course Course Attending Physician: Zena Diaz MD Primary Care Physician: Patricia Desai MD Hospital Course: Ms. Farooq is a 72-year-old female with past medical history of GERD,Mild nonerosive gastritis,Gastroesophageal reflux disease and paraesophageal hernia status post Dago's fundoplication (2010),Cervical disc herniations at C4-C5, C5-C6 and C6-C7 status Post cervical Arthodesis (2012), presented to the ED with chief complaints of fever #Atypical PNA #Intermittent dysphagia #Acute hypoxic respiratory failure - 2/ ?barium Plan: Na has trended to normal today. She is stable for discharge today. Advised to continue her course of antibiotics and return to ED for any worsening symptoms or concerns including any fevers. EGD showed nonerosive distal GERD with intact fundoplication Continue Moxifloxacin 400mg daily for a total of 7 day course. TRC/nebs PRN CXR was consistent with RL PNA Continue Protonix for acid reflux Barium esophagram showed normal esophageal motility but distal esophagus irregularities Appreciate ID recommendations Allergies: Coded Allergies: Penicillins (RASH 08/24/17) naproxen (VOMITING 08/24/17) Pertinent Lab Results: 08/24/17-1148 EXAM TYPE: CAT - CT HEAD WO IV CONTRAST IMPRESSION: No acute intracranial hemorrhage or territorial infarction. Mild chronic white matter microangiopathic changes. A focal acute ischemic process cannot be ruled out on the basis of this study. 08/24/17-1251 EXAM TYPE: RAD - XRY-PORTABLE CHEST XRAY IMPRESSION: Questionable mild patchy density in the right lower lobe which may be due to subsegmental atelectasis. An early developing pneumonic consolidation is difficult to exclude. Correlate with auscultation. 08/25/17- EXAM TYPE: RAD - XRY-CHEST XRAY, TWO VIEWS IMPRESSION: Progressive opacity in the right lung base with air bronchograms, volume loss and elevation of right hemidiaphragm, consistent with pneumonia. Trace associated pleural fluid may be present as well. 08/27/17- EXAM TYPE: CAT - CT CHEST WO IV CONTRAST IMPRESSION: 1. Patchy airspace consolidation and groundglass opacification in the right lower lobe dependently may correspond to pneumonia or aspiration. The more central bronchi appear clear, making aspiration slightly less likely. No evidence of barium aspiration. 2. Small bilateral pleural effusions. 08/27/17-899 EXAM TYPE: RAD - XRY-BARIUM SWALLOW/ESOPHAGRAM IMPRESSION: 1. The patient initiated the swallowing mechanism normally without evidence of aspiration. 2. There is normal esophageal motility. Serpiginous filling defects in the distal esophagus may be consistent with prominent venous structures or luminal irregularity. Endoscopy could be considered for further evaluation. 3. No gastroesophageal reflux or hiatal hernia are demonstrated. 08/28/17- EXAM TYPE: RAD - XRY-DECUBITUS FILMS IMPRESSION: 1. No significant change in size of small right-sided pleural effusion compared to 08/27/2017. Slight increase in size of the pleural effusion compared to 08/25/2017. 2. No change in right lower lobe infiltrate. 3. No significant change in trace left-sided pleural effusion. Disposition Summary Disposition Principal Diagnosis: Atypical Pneumonia Acute hypoxic respiratory failure Additional Diagnosis: Intermittent dysphagia Discharge Disposition: home or self care Discharge Instructions General Discharge Information Code Status: Full Code Patient's Diet: Regular Patient's Activity: Full Follow-Up Instructions/Appts: Follow up with GI-Dr. Dallas within 1 week of discharge Please have all her portable humidifier drained daily with removal of all slime, and sterilized frequently Follow up with the [facility]-Dr. Bah within 1 week of discharge Please follow up with your PCP within one week. Medications at Discharge Discharge Medications: Stop taking the following medications: Esomeprazole Magnesium (Nexium) 20 MG CAPSULE.DR VAZQUEZ as needed for GI Start taking the following new medications: Omeprazole (Omeprazole) 40 MG CAPSULE. 1 Capsule ORAL TWICE DAILY Qty = 30 No Refills Comments: Last Taken: 08/31/17 Time: 08 Polyethylene Glycol 3350 (Miralax) 17 GRAM/DOSE POWDER 17 Gram ORAL DAILY Qty = 7 No Refills Comments: Last Taken: 08/31/17 Time: 815 Budesonide/Formoterol Fumarate (Symbicort 80-4.5 Mcg Inhaler) 80 MCG-4.5 MCG/ ACTUATION HFA.AER.AD 2 Puff Inhale through mouth TWICE DAILY Qty = 10.2 No Refills Instructions: . Comments: NOT GIVEN Moxifloxacin HCl (Moxifloxacin HCl) 400 MG TABLET 400 Milligram ORAL DAILY Qty = 3 No Refills Instructions: . Comments: Last Taken: 08/31/17 Time: 0816 Copies To: Cezar ANTOINE,Pieter Seo; Niurka ANTOINE,Conner Barry
== END 2017-08-31 13:05 | DRG 194 ==
LOC: ERH 11:42 → ERHI 13:49 → 2NB 13:49 → ERHI 08-25 07:57 → ENRESERV 08-25 14:54 → ERHI 08-25 16:02 → ENTRNSPT 08-25 16:30 → EDTRNSPT 08-25 16:40 → EDTRNSPTSTS 08-25 16:40 → 2NB 08-25 16:46 → CMPTRNSPT 08-25 17:01 → 2NB 08-29 16:39 → ENPENDDIS 08-31 11:01 → 2NB 08-31 13:05
PROVIDERS: Emergency Medicine; Internal Medicine; Student in an Organized Health Care Education/Training Program
PROC: 0DB58ZX Excision of Esophagus, Via Natural or Artificial Opening Endoscopic, Diagnostic (ICD-10-PCS; principal; 2017-08-29)
DX: J18.9 Pneumonia, unspecified organism (principal); N17.9 Acute kidney failure, unspecified; E87.1 Hypo-osmolality and hyponatremia; R13.10 Dysphagia, unspecified; R09.02 Hypoxemia; K21.9 Gastro-esophageal reflux disease without esophagitis; Z98.1 Arthrodesis status; Z90.49 Acquired absence of other specified parts of digestive tract; Z88.0 Allergy status to penicillin; Z88.8 Allergy status to other drugs, medicaments and biological substances
CPT/HCPCS: 2NBP; 2NSBP; ERO; 36415; 36592; 71045; 71046; 74220; 81001; 82436; 87040; 87070; 87086; 87449; 87450; 93005; 93010; 96361; 96365; 96375; 97116-GO; 97161-GP; 99291; J0131; J0456; J0696; J1644; J1885; J2405; J2765; J2920; J3490; J7040; J7608